=== PATIENT | female | born 1965 | race Caucasian/White ===

== ENCOUNTER → 2016-06-04 | Outpatient (CLI) | payer BC ==
[~2016-06-04] MED LIST: AMT24 PO; B-CO1CAP17 PO; B-COCAP2 PO; CALC600T14 PO; CALCTAB7 PO; CHOL100027 PO; ESTR0.0510 TD; FISHOIL PO; LEVO112T2 PO; LUBI8CAP4 PO; MAGN400T5 PO; MISCCAP80 PO; NRN600 PO; OMEGCAP2 PO; ONDA4TAB10 SL; ONDA4TAB46 PO; OXYC1TAB3 PO; POTA10CA28 PO; PRENTAB26 PO; PRLSR20 PO; PROC1TAB5 PO; TERI600S SQ; TRAM-10 PO; VENL150C56 PO; [UNRECOGNIZED DRUG - CODE] TD
[2016-06-04 09:41] LABS: BASO % 1.4 %; BASO ABS # 0.07 K/uL (0-0.2); COMPLETE YES; EOS % 1.8 %; HEMATOCRIT 38.7 % (37-47); IG% 0.2 %; LYMPH % 35.2 %; LYMPH ABS # 1.78 K/uL (1.2-3.4); MANUAL MICROSCOPIC REQUIRED? YES; MEAN CELL VOLUME 96.3 fL (80-100); MEAN CORPUSCULAR HEMOGLOBIN 33.6 pg (25-34); MEAN CORPUSCULAR HGB CONC 34.9 g/dl (32-36); MEAN PLATELET VOLUME 9.9 fL (7.4-10.4); MONO % 8.3 %; NEUT % 53.1 %; PLATELET COUNT 161 K/uL (130-400); RED BLOOD COUNT 4.02 M/uL (4.2-5.4); URINE APPEARANCE CLEAR (CLEAR); URINE BILIRUBIN NEG (NEG); URINE COLOR YELLOW; URINE NITRITE NEG (NEG); UROBILINOGEN NEG (NEG); WHITE BLOOD COUNT 5.05 K/uL (4.8-10.8)
[2016-06-04 09:52] LABS: REVIEW REQ? NO
[2016-06-04 10:00] LABS: ALT/SGPT 25 U/L (12-78); BLOOD UREA NITROGEN 19 mg/dl (7-18); BUN/CREATININE RATIO 10.3 (10-20); CALCIUM 10.1 mg/dl (8.5-10.1); CARBON DIOXIDE 23 mmol/L (21-32); CHLORIDE 97 mmol/L (98-107); GLUCOSE 136 mg/dl (70-99); MAGNESIUM 1.9 mg/dl (1.8-2.4); POTASSIUM 2.7 mmol/L (3.5-5.1); SODIUM 135 mmol/L (136-145)
[2016-06-04 10:10] LABS: ALB/GLOB RATIO 0.8 (0.9-2); ALKALINE PHOSPHATASE 117 U/L (45-117); AST/SGOT 33 U/L (15-37); PREALBUMIN 19.2 mg/dl (20-40)
[2016-06-04 10:16] LABS: URINE BACTERIA NEG (NEG)
== END | disposition home or self-care (01) ==
LOC: C.LAB1850 08:13
PROVIDERS: ATTEND Internal Medicine
DX: D64.9 Anemia, unspecified (principal); N18.3 Chronic kidney disease, stage 3 (moderate)

== ENCOUNTER 2016-06-14 07:49 | Emergency (ER) | payer BC ==
[~2016-06-14] VITALS: Ht 162.6 cm; Wt 39.0 kg
[~2016-06-14 07:49] MED LIST changes: -B-CO1CAP17 PO; -CALCTAB7 PO; -ESTR0.0510 TD; -OMEGCAP2 PO; -ONDA4TAB10 SL; -OXYC1TAB3 PO; -PROC1TAB5 PO; -TERI600S SQ
[2016-06-14 07:53] VITALS: TEMP 36.6; Ht 162.6 cm; Wt 39.0 kg
[2016-06-14] MEDS ORDERED: TRAMADOL HCL 50 MG TAB PO STA (08:07)
[2016-06-14] MEDS ORDERED: SODIUM CHLORIDE 0.9% 1000ML 1,000 ML IV STA (08:07)
[2016-06-14] MEDS ORDERED: ONDANSETRON INJ 2 MG/ML 2 ML VIAL IV STA ×2 (08:07→08:08)
--- NOTE | 2016-06-14 08:09 | EMERGENCY ROOM VISIT NOTE ---
History Report prepared by Olga: Samy Cherry Under the Supervision of: Dr. Garrison Oh M.D. First contact with patient: 07:57 Chief Complaint: ILLNESS Stated Complaint: SICK History of Present Illness The patient is a 50 year old female who presents to the Emergency Room with complaints of a persistent illness that started a week ago. She says she has not been able to eat or drink anything, and has been losing weight over the past week. The patient vomits if she tries to eat or drink anything. She also complains of lethargy, nausea, diarrhea, generalized pain, and chills. The patient notes that she has been getting migraines at night this past week. She has been trying to take Tramadol for the pain, but she cannot keep it down. She also fell a couple days ago, and has a bruise on her upper left arm. She says she just got her thyroid checked and it was fine. The patient denies any abdominal pain or fevers. Source of History: patient Onset: A week ago Position: other (global - illness) Timing: other (persistent) Associated Symptoms: + chills, + diarrhea, + fatigue, + headache, + nausea, + vomiting, No abdominal pain, No fevers Note: Associated symptoms: Generalized pain, cannot keep anything down. Losing weight. Review of Systems See HPI for pertinent positives & negatives. A total of 10 systems reviewed and were otherwise negative. Past Medical & Surgical Medical Problems: (1) Acute Renal Failure, Unspecified (2) Alcohol dependence (3) E Coli Septicemia (4) Esophageal Reflux (5) Fx Ankle Nos-Closed (6) Fx Distal Radius Nec-Cl (7) Liver Disorders Nec (8) Liver Failure (9) OTH SEVERE MALNUTRITION (10) Renal Failure Nos Family History Kidney disease Lung disease Social History Smoking Status: Never Smoker Alcohol Use: heavy Drug Use: none Marital Status: Housing Status: lives with family Occupation Status: other Current/Historical Medications Scheduled Calcium (Caltrate), 600 MG PO BID Cholecalciferol (Vitamin D 1000 Unit), 1,000 INTER.UNIT PO BID Estradiol (Estradiol Transdermal System), 1 PATCH TD 2XWK Fish Oil ([place]-3), 1 CAP PO QAM Gabapentin (Gabapentin), 600 MG PO TID Levothyroxine Sodium (Synthroid), 112 MCG PO QAM Lubiprostone (Amitiza), 24 MCG PO HS Lubiprostone (Amitiza), 8 MCG PO QAM Magnesium Oxide (Mag-Ox), 400 MG PO TID Multivit/Min/Iron/Fol Ac/Pren ( Vitamin), 1 TABLET PO DAILY Omeprazole (Prilosec), 20 MG PO QAM Ondasetron Odt (Zofran Odt), 4 MG SL Q6H Potassium Chloride (Micro-K Ext Rel), 8 TAB PO DAILY Probiotic Product (Probiotic), 1 CAP PO QAM Teriparatide (Recombinant) (Forteo), 20 MCG SQ DAILY Venlafaxine Hcl (Effexor Extended Rel), 150 MG PO QAM Vitamin B Cmplx/Vitc/Folic Ac (Nephrocaps), 1 CAP PO QAM Scheduled PRN Ondansetron Hcl (Zofran), 4 MG PO Q4 PRN for Nausea or Vomiting Tramadol (Ultram), 1 TAB PO TID PRN for Pain Allergies Coded Allergies: Penicillins (Verified Allergy, Mild, ITCHING, 09/21/15) Cephalexin (Verified Allergy, Unknown, unknown, 09/21/15) allscripts Cephalosporins (Verified Allergy, Unknown, unknown, 09/21/15) allscripts Physical Exam Vital Signs Date Time Temp Pulse Resp B/P Pulse Ox O2 Delivery O2 Flow Rate FiO2 06/14/16 10:32 113 06/14/16 10:15 116 18 117/75 96 Room Air 06/14/16 09:10 97 14 145/93 99 Room Air 06/14/16 07:53 36.6 94 20 122/85 99 Room Air Physical Exam CONSTITUTIONAL: Mild distress. HEENT: No icterus, moist mucous membranes NECK: No meningismus, trachea is midline. CARDIOVASCULAR: Regular rate, normal perfusion RESPIRATORY: Unlabored breathing. Clear to auscultation. GASTROINTESTINAL: Non-tender GENITOURINARY: No flank tenderness MUSCULOSKELETAL: Full range of motion NEUROLOGIC: No acute gross focal deficits. PSYCHIATRIC: Normal affect SKIN: Normal for ethnicity. Medical Decision & Procedures Laboratory Results 06/14/16 08:20 Red Blood Count 3.95, Mean Corpuscular Volume 98.5, Mean Corpuscular Hemoglobin 33.4, Mean Corpuscular Hemoglobin Concent 33.9, Mean Platelet Volume 9.6, Neutrophils (%) (Auto) 56.5, Lymphocytes (%) (Auto) 32.2, Monocytes (%) (Auto) 8.3, Eosinophils (%) (Auto) 1.5, Basophils (%) (Auto) 1.5, Neutrophils # (Auto) 2.24, Lymphocytes # (Auto) 1.28, Monocytes # (Auto) 0.33, Eosinophils # (Auto) 0.06, Basophils # (Auto) 0.06 06/14/16 08:20 Test 06/14/16 08:20 06/14/16 09:15 White Blood Count 3.97 K/uL (4.8-10.8) Red Blood Count 3.95 M/uL (4.2-5.4) Hemoglobin 13.2 g/dL (12.0-16.0) Hematocrit 38.9 % (37-47) Mean Corpuscular Volume 98.5 fL (80-100) Mean Corpuscular Hemoglobin 33.4 pg (25-34) Mean Corpuscular Hemoglobin Concent 33.9 g/dl (32-36) Platelet Count 134 K/uL (130-400) Mean Platelet Volume 9.6 fL (7.4-10.4) Neutrophils (%) (Auto) 56.5 % Lymphocytes (%) (Auto) 32.2 % Monocytes (%) (Auto) 8.3 % Eosinophils (%) (Auto) 1.5 % Basophils (%) (Auto) 1.5 % Neutrophils # (Auto) 2.24 K/uL (1.4-6.5) Lymphocytes # (Auto) 1.28 K/uL (1.2-3.4) Monocytes # (Auto) 0.33 K/uL (0.11-0.59) Eosinophils # (Auto) 0.06 K/uL (0-0.5) Basophils # (Auto) 0.06 K/uL (0-0.2) RDW Standard Deviation 47.3 fL (36.4-46.3) RDW Coefficient of Variation 13.0 % (11.5-14.5) Immature Granulocyte % (Auto) 0.0 % Immature Granulocyte # (Auto) 0.00 K/uL (0.00-0.02) Anion Gap 20.0 mmol/L (3-11) Est Creatinine Clear Calc Drug Dose 24.4 ml/min Estimated GFR () 40.1 Estimated GFR (Non- 34.6 BUN/Creatinine Ratio 7.5 (10-20) Calcium Level 9.9 mg/dl (8.5-10.1) Total Bilirubin 0.6 mg/dl (0.2-1) Direct Bilirubin 0.2 mg/dl (0-0.2) Aspartate Amino Transf (AST/SGOT) 46 U/L (15-37) Alanine Aminotransferase (ALT/SGPT) 26 U/L (12-78) Alkaline Phosphatase 112 U/L (45-117) Total Protein 8.0 gm/dl (6.4-8.2) Albumin 3.3 gm/dl (3.4-5.0) Thyroid Stimulating Hormone (TSH) 0.009 uIu/ml (0.300-4.500) Urine Color YELLOW Urine Appearance CLEAR (CLEAR) Urine pH 6.0 (4.5-7.5) Urine Specific [place] 1.007 (1.000-1.030) Urine Protein 2+ (NEG) Urine Glucose (UA) NEG (NEG) Urine Ketones 1+ (NEG) Urine Occult Blood 2+ (NEG) Urine Nitrite NEG (NEG) Urine Bilirubin NEG (NEG) Urine Urobilinogen NEG (NEG) Urine Leukocyte Esterase NEG (NEG) Urine WBC (Auto) 1-5 /hpf (0-5) Urine RBC (Auto) 10-30 /hpf (0-4) Urine Hyaline Casts (Auto) 1-5 /lpf (0-5) Urine Epithelial Cells (Auto) 10-20 /lpf (0-5) Urine Bacteria (Auto) NEG (NEG) Labs reviewed by ED physician. Medications Administered Medications (Trade) Dose Ordered Sig/Mili Route Start Time Stop Time Status Last Admin Dose Admin Tramadol HCl 50 mg 50 mg NOW STAT PO 06/14/16 08:07 06/14/16 08:09 DC 06/14/16 08:33 50 MG Sodium Chloride (Nss 1000ml) 1,000 ml @ 0 mls/hr Q0M STAT IV 06/14/16 08:07 06/14/16 08:09 DC 06/14/16 08:32 999 MLS/HR Ondansetron HCl (Zofran Inj) 4 mg NOW STAT IV 06/14/16 08:07 06/14/16 08:09 DC 06/14/16 08:34 4 MG Ondansetron HCl (Zofran Inj) 4 mg NOW STAT IV 06/14/16 08:08 06/14/16 08:09 DC 06/14/16 09:17 4 MG ED Course 0758: Past medical records reviewed. The patient was evaluated in room A3. A complete history and physical examination was performed. 0807: Ordered Zofran Inj 4 mg IV, NSS 1000 ml @ 0 mls/hr Wide Open IV, Ultram Tab 50 mg PO 1143: I reevaluated the patient and she is resting comfortably. The patient verbally expressed understanding and agreement of the treatment plan. The patient will be discharged. Medical Decision Differential diagnoses include: gastroenteritis. 50-year-old presents to emergency room for vomiting and diarrhea with a history of dehydration as well as Escherichia coli sepsis the distant past. Abdomen benign. She was hydrated with normal saline solution given Zofran and tolerated by mouth without difficulty. Creatinine noted to be 1.7. Patient states she has a history of renal insufficiency and understands to have his follow-up with her doctor. He is comfortable with plan for discharge on reexamination 11:30am. Impression Primary Impression: Vomiting Additional Impression: Dehydration Scribe Attestation The scribe's documentation has been prepared under my direction and personally reviewed by me in its entirety. I confirm that the note above accurately reflects all work, treatment, procedures, and medical decision making performed by me. Departure Information Dispostion Home / Self-Care Prescriptions Ondasetron Odt (ZOFRAN ODT) 4 Mg Tab 4 MG SL Q6H for Nausea, #20 TAB Prov: Garrison Oh MD 06/14/16 Referrals Anson Lucio M.D. (PCP) Forms HOME CARE DOCUMENTATION FORM, IMPORTANT VISIT INFORMATION, WORK / SCHOOL INSTRUCTIONS Patient Instructions My [facility], Vomiting - [facility] Problem Qualifiers
[2016-06-14] MEDS ORDERED: TERI600S SQ (08:26)
[2016-06-14 08:38] LABS: BASO % 1.5 %; BASO ABS # 0.06 K/uL (0-0.2); COMPLETE YES; EOS % 1.5 %; HEMATOCRIT 38.9 % (37-47); LYMPH % 32.2 %; LYMPH ABS # 1.28 K/uL (1.2-3.4); MEAN CELL VOLUME 98.5 fL (80-100); MEAN CORPUSCULAR HEMOGLOBIN 33.4 pg (25-34); MEAN CORPUSCULAR HGB CONC 33.9 g/dl (32-36); MEAN PLATELET VOLUME 9.6 fL (7.4-10.4); MONO % 8.3 %; NEUT % 56.5 %; PLATELET COUNT 134 K/uL (130-400); RED BLOOD COUNT 3.95 M/uL (4.2-5.4); WHITE BLOOD COUNT 3.97 K/uL (4.8-10.8)
[2016-06-14 09:07] LABS: BUN/CREATININE RATIO 7.5 (10-20); CALCIUM 9.9 mg/dl (8.5-10.1); CREATININE 1.7 mg/dl (0.60-1.20); THYROID STIMULATING HORMONE 0.009 uIu/ml (0.300-4.500)
[2016-06-14 09:37] LABS: URINE APPEARANCE CLEAR (CLEAR); URINE BILIRUBIN NEG (NEG); URINE COLOR YELLOW; URINE NITRITE NEG (NEG); URINE SPECIFIC GRAVITY 1.007 (1.000-1.030); UROBILINOGEN NEG (NEG)
[2016-06-14 09:39] LABS: MANUAL MICROSCOPIC REQUIRED? NO; REVIEW REQ? NO
[2016-06-14] MEDS ORDERED: ONDA4TAB10 SL (11:44)
[2016-06-14 12:15] VITALS: BP 127/85; PULSE 100; O2SAT 97
== END 2016-06-14 12:15 | disposition home or self-care (01) ==
LOC: C.EDB 07:51 → C.EDA 12:15
DX: R11.2 Nausea with vomiting, unspecified (principal); E86.0 Dehydration; R19.7 Diarrhea, unspecified; R52 Pain, unspecified; G43.909 Migraine, unspecified, not intractable, without status migrainosus; F10.20 Alcohol dependence, uncomplicated; K21.9 Gastro-esophageal reflux disease without esophagitis; K72.90 Hepatic failure, unspecified without coma; N18.9 Chronic kidney disease, unspecified

== ENCOUNTER 2016-06-19 08:04 | Emergency (ER) | payer BC ==
[~2016-06-19] VITALS: Ht 162.6 cm; Wt 37.0 kg
[~2016-06-19 08:04] MED LIST changes: +ONDA4TAB10 SL; +TERI600S SQ
[2016-06-19 08:07] VITALS: TEMP 36.5; Ht 162.6 cm; Wt 37.0 kg
[2016-06-19] MEDS ORDERED: SODIUM CHLORIDE 0.9% 500ML 500 ML IV STA (08:31)
[2016-06-19] MEDS ORDERED: ONDANSETRON INJ 2 MG/ML 2 ML VIAL IV STA (08:31)
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
[2016-06-19 08:48] LABS: BASO % 0.3 %; BASO ABS # 0.01 K/uL (0-0.2); COMPLETE YES; EOS % 1.4 %; HEMATOCRIT 40.3 % (37-47); LYMPH % 27.3 %; LYMPH ABS # 0.99 K/uL (1.2-3.4); MEAN CELL VOLUME 96.2 fL (80-100); MEAN CORPUSCULAR HEMOGLOBIN 33.4 pg (25-34); MEAN CORPUSCULAR HGB CONC 34.7 g/dl (32-36); MEAN PLATELET VOLUME 10.3 fL (7.4-10.4); MONO % 8.8 %; NEUT % 62.2 %; PLATELET COUNT 115 K/uL (130-400); RED BLOOD COUNT 4.19 M/uL (4.2-5.4); WHITE BLOOD COUNT 3.63 K/uL (4.8-10.8)
[2016-06-19 09:07] LABS: BUN/CREATININE RATIO 11.9 (10-20); CALCIUM 9.5 mg/dl (8.5-10.1); CREATININE 1.6 mg/dl (0.60-1.20); MAGNESIUM 1.6 mg/dl (1.8-2.4); POTASSIUM 3.8 mmol/L (3.5-5.1)
--- NOTE | 2016-06-19 09:08 | DIAGNOSTIC IMAGING REPORT ---
ABDOMEN 2VIEW W/PA CHEST RTN CLINICAL HISTORY: Vomiting COMPARISON STUDY: 08/14/2012 FINDINGS: The erect chest reveals no free air. There is no focal pulmonary consolidation. Erect and supine views the abdomen surgical clips within the right upper quadrant. There are no abnormally dilated loops of large or small bowel. There are no transition zones indicate bowel obstruction. There is a right lower quadrant air-fluid level, likely colonic. Multiple thoracic and lumbar vertebral body compression deformities are evident. IMPRESSION: No evidence of bowel obstruction. No evidence of free air. Electronically signed by: Marshall Carver M.D. 06/19/2016 9:07 AM Dictated Date/Time: 06/19/2016 8:59 AM
[2016-06-19 09:10] LABS: ALB/GLOB RATIO 0.7 (0.9-2)
[2016-06-19] MEDS ORDERED: CALCTAB7 PO (09:10)
[2016-06-19] MEDS ORDERED: ESTR0.0510 TD (09:10)
[2016-06-19] MEDS ORDERED: B-CO1CAP17 PO (09:10)
[2016-06-19] MEDS ORDERED: OMEGCAP2 PO (09:10)
[2016-06-19] MEDS ORDERED: MoRPHine SULFATE 2 MG/ML CARP IV STA (09:48)
[2016-06-19] MEDS ORDERED: OXYC1TAB3 PO (12:11)
[2016-06-19 12:27] VITALS: BP 114/66; PULSE 88; O2SAT 100
== END 2016-06-19 12:30 | disposition home or self-care (01) ==
LOC: C.EDB 08:06
DX: R11.10 Vomiting, unspecified (principal); D64.9 Anemia, unspecified; N19 Unspecified kidney failure; G89.29 Other chronic pain; E03.9 Hypothyroidism, unspecified; K21.9 Gastro-esophageal reflux disease without esophagitis; K72.90 Hepatic failure, unspecified without coma; Z86.19 Personal history of other infectious and parasitic diseases; Z87.81 Personal history of (healed) traumatic fracture; Z79.899 Other long term (current) drug therapy; Z88.0 Allergy status to penicillin; Z88.8 Allergy status to other drugs, medicaments and biological substances; Z84.1 Family history of disorders of kidney and ureter

== ENCOUNTER → 2016-07-13 | Outpatient (CLI) | payer BC ==
[~2016-07-13] MED LIST changes: +B-CO1CAP17 PO; -B-COCAP2 PO; -CALC600T14 PO; +CALCTAB7 PO; +ESTR0.0510 TD; -FISHOIL PO; +OMEGCAP2 PO; -ONDA4TAB10 SL; +OXYC1TAB3 PO; +PROC1TAB5 PO; -[UNRECOGNIZED DRUG - CODE] TD
[2016-07-13 09:55] LABS: ALT/SGPT 25 U/L (12-78); BLOOD UREA NITROGEN 7 mg/dl (7-18); BUN/CREATININE RATIO 4.3 (10-20); CALCIUM 8.8 mg/dl (8.5-10.1); CARBON DIOXIDE 24 mmol/L (21-32); CHLORIDE 98 mmol/L (98-107); GLUCOSE 102 mg/dl (70-99); POTASSIUM 3.4 mmol/L (3.5-5.1); SODIUM 133 mmol/L (136-145)
[2016-07-13 10:04] LABS: ALB/GLOB RATIO 0.6 (0.9-2); ALKALINE PHOSPHATASE 116 U/L (45-117); AST/SGOT 52 U/L (15-37); PREALBUMIN 22.2 mg/dl (20-40)
== END | disposition home or self-care (01) ==
LOC: C.LAB1850 08:24
PROVIDERS: ATTEND Internal Medicine
DX: N18.3 Chronic kidney disease, stage 3 (moderate) (principal); E03.9 Hypothyroidism, unspecified

== ENCOUNTER → 2016-07-16 | Outpatient (CLI) | payer BC ==
[2016-07-16 13:36] LABS: CALCIUM URINE 14.8 mg/dl
== END | disposition home or self-care (01) ==
LOC: C.LABBC 10:48
PROVIDERS: ATTEND Internal Medicine Rheumatology
DX: M81.0 Age-related osteoporosis without current pathological fracture (principal); E43 Unspecified severe protein-calorie malnutrition; S22.059A Unspecified fracture of T5-T6 vertebra, initial encounter for closed fracture; S22.069A Unspecified fracture of T7-T8 vertebra, initial encounter for closed fracture; S22.089A Unspecified fracture of T11-T12 vertebra, initial encounter for closed fracture; X58.XXXA Exposure to other specified factors, initial encounter; E61.8 Deficiency of other specified nutrient elements

== ENCOUNTER → 2016-07-18 | Outpatient (CLI) | payer BC | END | disposition home or self-care (01) | LOC: C.LAB1850 12:15 | PROVIDERS: ATTEND Internal Medicine Rheumatology | DX: M81.0 Age-related osteoporosis without current pathological fracture (principal); S22.059A Unspecified fracture of T5-T6 vertebra, initial encounter for closed fracture; S22.069A Unspecified fracture of T7-T8 vertebra, initial encounter for closed fracture; S22.089A Unspecified fracture of T11-T12 vertebra, initial encounter for closed fracture; X58.XXXA Exposure to other specified factors, initial encounter; E61.8 Deficiency of other specified nutrient elements ==

== ENCOUNTER → 2016-08-07 | Outpatient (CLI) | payer BC | END | disposition home or self-care (01) | LOC: C.PAPS 14:36 | PROVIDERS: ATTEND Obstetrics & Gynecology | DX: Z01.411 Encounter for gynecological examination (general) (routine) with abnormal findings (principal); R87.616 Satisfactory cervical smear but lacking transformation zone; Z87.42 Personal history of other diseases of the female genital tract ==

== ENCOUNTER → 2016-09-11 | Outpatient (CLI) | payer BC ==
--- NOTE | 2016-09-11 14:23 | DIAGNOSTIC IMAGING REPORT ---
RIGHT SHOULDER 4 VIEWS CLINICAL HISTORY: Chronic right shoulder pain. FINDINGS: 4 views of the right shoulder are obtained. No prior studies are available for comparison at the time of dictation. The skeletal structures are osteopenic. There is chronic posttraumatic deformity of the right proximal humerus with an intramedullary nail in place. The orthopedic hardware appears intact. No acute fracture or dislocation is seen. Arthritic change and sclerosis is present in the great tuberosity of the humeral head. The acromioclavicular joint appears preserved. The overlying soft tissues are within normal limits. Imaged right lung parenchyma appears clear. There are healed right-sided rib fractures. IMPRESSION: 1. No acute bony abnormality is seen in the right shoulder. 2. Osteopenia with mild degenerative as well as chronic posttraumatic/postoperative change as above. Electronically signed by: James Mandujano M.D. 09/11/2016 2:22 PM Dictated Date/Time: 09/11/2016 2:20 PM
== END | disposition home or self-care (01) ==
LOC: C.RDSM 10:00
PROVIDERS: ATTEND Physician Assistant
DX: M25.511 Pain in right shoulder (principal); M85.811 Other specified disorders of bone density and structure, right shoulder

== ENCOUNTER → 2016-10-23 | Outpatient (CLI) | payer BC ==
[2016-10-23 10:24] LABS: HEMATOCRIT 39.4 % (37-47); MEAN CELL VOLUME 106.5 fL (80-100); MEAN CORPUSCULAR HEMOGLOBIN 37.3 pg (25-34); MEAN PLATELET VOLUME 9.4 fL (7.4-10.4); PLATELET COUNT 154 K/uL (130-400); WHITE BLOOD COUNT 4.27 K/uL (4.8-10.8)
[2016-10-23 11:04] LABS: ALB/GLOB RATIO 0.7 (0.9-2); ALKALINE PHOSPHATASE 97 U/L (45-117); ALT/SGPT 29 U/L (12-78); AST/SGOT 66 U/L (15-37); BLOOD UREA NITROGEN 14 mg/dl (7-18); CALCIUM 8.8 mg/dl (8.5-10.1); CARBON DIOXIDE 25 mmol/L (21-32); CHLORIDE 101 mmol/L (98-107); GLUCOSE 59 mg/dl (70-99); MAGNESIUM 1.6 mg/dl (1.8-2.4); POTASSIUM 3.3 mmol/L (3.5-5.1); SODIUM 138 mmol/L (136-145)
[2016-10-23 11:11] LABS: BASO % 0.9 %; BASO ABS # 0.04 K/uL (0-0.2); COMPLETE YES; EOS % 0.9 %; LYMPH % 58.1 %; LYMPH ABS # 2.48 K/uL (1.2-3.4); NEUT % 32.1 %
[2016-10-23 11:12] LABS: PREALBUMIN 19.6 mg/dl (20-40); THYROID STIMULATING HORMONE 0.271 uIu/ml (0.300-4.500)
== END | disposition home or self-care (01) ==
LOC: C.LAB1850 09:04
PROVIDERS: ATTEND Internal Medicine
DX: E43 Unspecified severe protein-calorie malnutrition (principal); N18.3 Chronic kidney disease, stage 3 (moderate)

== ENCOUNTER 2016-12-28 08:12 | Emergency (ER) | payer BC ==
[~2016-12-28] VITALS: Ht 162.6 cm; Wt 36.9 kg
[~2016-12-28 08:12] MED LIST changes: -OXYC1TAB3 PO; -PROC1TAB5 PO
[2016-12-28 08:19] VITALS: TEMP 36.5
[2016-12-28] MEDS ORDERED: HYDROmorphone INJ 1 MG/ML SYR IV STA (08:46)
[2016-12-28] MEDS ORDERED: PROCHLORPERAZINE 5 MG/ML 2 ML VIAL IV STA (08:46)
[2016-12-28] MEDS ORDERED: DiphenhydrAMINE HCL 50 MG/ML VIAL IV STA (08:46)
[2016-12-28] MEDS ORDERED: SODIUM CHLORIDE 0.9% 1000ML 1,000 ML IV STA (08:46)
[2016-12-28 09:05] LABS: BASO % 1.6 %; BASO ABS # 0.06 K/uL (0-0.2); COMPLETE YES; EOS % 0.3 %; HEMATOCRIT 38.6 % (37-47); LYMPH % 45.1 %; LYMPH ABS # 1.72 K/uL (1.2-3.4); MEAN CELL VOLUME 101.8 fL (80-100); MEAN CORPUSCULAR HGB CONC 33.4 g/dl (32-36); MEAN PLATELET VOLUME 8.9 fL (7.4-10.4); MONO % 5.8 %; NEUT % 47.2 %; PLATELET COUNT 176 K/uL (130-400); RED BLOOD COUNT 3.79 M/uL (4.2-5.4); WHITE BLOOD COUNT 3.81 K/uL (4.8-10.8)
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
[2016-12-28 09:40] LABS: BUN/CREATININE RATIO 10.2 (10-20); CALCIUM 9.2 mg/dl (8.5-10.1); CREATININE 1.3 mg/dl (0.60-1.20); POTASSIUM 3.9 mmol/L (3.5-5.1)
[2016-12-28] MEDS ORDERED: SODI CHLOR 2.5MEQ/ML 14.6% INJ 155 MEQ in DEXTROSE 10% 1,000 ML IV SCH (09:45)
--- NOTE | 2016-12-28 09:52 | DIAGNOSTIC IMAGING REPORT ---
CHEST AND ABDOMEN 2 VIEWS HISTORY: Vomiting. Generalized abdominal pain. COMPARISON: Chest and abdominal series 06/19/2016. FINDINGS: The lungs are clear. The cardiomediastinal silhouette is within normal limits. There is no pneumoperitoneum or pneumatosis. Gas and stool within the normal caliber colon. There are few mildly dilated gas-filled loops of small bowel within the midabdomen. These measure up to 3.4 cm in diameter. These demonstrate small fluid levels. Old, healed right-sided rib fractures. Postoperative changes within the proximal right humerus. Cholecystectomy. IMPRESSION: A few mildly dilated gas and fluid-filled loops of small bowel within the midabdomen. There remains gas and stool within the colon. Therefore, this favors a partial small bowel obstruction. An ileus or gastroenteritis could also have a similar appearance. Electronically signed by: Theron Alegria M.D. 12/28/2016 9:50 AM Dictated Date/Time: 12/28/2016 9:46 AM
[2016-12-28] MEDS ORDERED: DEXTROSE 50% 50 ML SYR IV STA (09:57)
[2016-12-28] MEDS ORDERED: DEXTROSE 50% 50 ML SYR ONE (09:59)
--- NOTE | 2016-12-28 10:19 | EMERGENCY ROOM VISIT NOTE ---
History Report prepared by Olga: Ofe Warner Under the Supervision of: Dr. Maicol Willett M.D. First contact with patient: 08:21 Chief Complaint: VOMITING Stated Complaint: VOMITING, NOT EATING-OVER 1 WEEK Nursing Triage Summary: PT states that over the last week she has been unable to eat due to nause. Pt states that when she tries to eat she vomits. Pt denies any abdominal pain, diarrhea or urinary issues. History of Present Illness The patient is a 51 year old female who presents to the Emergency Room with complaints of persistent vomiting starting 1 week ago. She is nauseous and vomits every time she eats or drinks. She has experienced this before. She also reports headaches. She denies any abdominal pain. She denies trying any new foods or travel. She has no known sick contacts. She has a history of gastroparesis and GERD. She has been scoped before. She has not yet contacted GI about her symptoms. 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 Source of History: patient Onset: 1 week ago Position: other (global) Quality: other (vomiting) Timing: other (persistent) Modifying Factors (Worsening): eating Associated Symptoms: + headache, + nausea, No abdominal pain Review of Systems See HPI for pertinent positives & negatives. A total of 10 systems reviewed and were otherwise negative. Past Medical & Surgical Medical Problems: (1) Acute Renal Failure, Unspecified (2) Alcohol dependence (3) E Coli Septicemia (4) Esophageal Reflux (5) Fx Ankle Nos-Closed (6) Fx Distal Radius Nec-Cl (7) Liver Disorders Nec (8) Liver Failure (9) OTH SEVERE MALNUTRITION (10) Renal Failure Nos Family History Kidney disease Lung disease Social History Smoking Status: Never Smoker Drug Use: none Marital Status: Housing Status: lives with family Current/Historical Medications Scheduled Calcium Carbonate-Vitamin D W/ (Caltrate 600 Plus), 1 TAB PO BID Cholecalciferol (Vitamin D 1000 Unit), 1,000 INTER.UNIT PO BID Estradiol (Estradiol Transdermal System), 1 PATCH TD 2XWK Gabapentin (Gabapentin), 600 MG PO TID Levothyroxine Sodium (Synthroid), 112 MCG PO QAM Lubiprostone (Amitiza), 24 MCG PO BID Magnesium Oxide (Mag-Ox), 400 MG PO TID Multivit/Min/Iron/Fol Ac/Pren ( Vitamin), 1 TABLET PO DAILY [place]-3 Fatty Acids (Fish Oil), 1 CAP PO DAILY Omeprazole (Prilosec), 20 MG PO BID Potassium Chloride (Micro-K Ext Rel), 20 TAB PO QID Probiotic Product (Probiotic), 1 CAP PO QAM Prochlorperazine Maleate (Compazine), 1 TAB PO Q6 Teriparatide (Recombinant) (Forteo), 20 MCG SQ DAILY Venlafaxine Hcl (Effexor Extended Rel), 150 MG PO QAM Vitamin B Cmplx/Vitc/Folic Ac (Nephrocaps), 1 CAP PO DAILY Scheduled PRN Ondansetron Hcl (Zofran), 4 MG PO Q4 PRN for Nausea or Vomiting Tramadol (Ultram), 50 MG PO TID PRN for Pain Allergies Coded Allergies: Penicillins (Verified Allergy, Mild, ITCHING, 12/28/16) Cephalexin (Verified Allergy, Unknown, unknown, 12/28/16) [employer] Cephalosporins (Verified Allergy, Unknown, unknown, 12/28/16) [employer] Physical Exam Vital Signs Date Time Temp Pulse Resp B/P (MAP) Pulse Ox O2 Delivery O2 Flow Rate FiO2 12/28/16 13:08 98 18 97/63 99 12/28/16 12:20 99 12/28/16 11:32 Room Air 12/28/16 11:21 100 18 110/74 100 Room Air 12/28/16 10:06 119 18 119/85 95 Room Air 12/28/16 08:40 112 12/28/16 08:19 36.5 110 20 125/88 99 Room Air Physical Exam GENERAL: Patient is cachectic in appearance. HEAD: Normocephalic atraumatic EYES: Ocular movements intact pupils equal and react to light OROPHARYNX mucous membranes are moist no exudates present no erythema or edema present NECK: Supple no nuchal rigidity CHEST: Good equal expansion LUNGS: Clear and equal to auscultation CARDIAC: Normal S1 and S2 ABDOMEN: Soft nontender no guarding BACK: No CVA tenderness EXTREMITIES: No pain upon palpation normal muscle strength in all groups no clubbing cyanosis or edema NEURO: Patient is following commands and answering questions appropriately. Alert and oriented x3 Cranial Nerves 2-12 grossly intact Medical Decision & Procedures ER Provider Diagnostic Interpretation: X-ray results as stated below per interpretation by mo and the radiologist. Radiology results as stated below per my review and radiologist interpretation: CHEST AND ABDOMEN 2 VIEWS HISTORY: Vomiting. Generalized abdominal pain. COMPARISON: Chest and abdominal series 06/19/2016. FINDINGS: The lungs are clear. The cardiomediastinal silhouette is within normal limits. There is no pneumoperitoneum or pneumatosis. Gas and stool within the normal caliber colon. There are few mildly dilated gas-filled loops of small bowel within the midabdomen. These measure up to 3.4 cm in diameter. These demonstrate small fluid levels. Old, healed right-sided rib fractures. Postoperative changes within the proximal right humerus. Cholecystectomy. IMPRESSION: A few mildly dilated gas and fluid-filled loops of small bowel within the midabdomen. There remains gas and stool within the colon. Therefore, this favors a partial small bowel obstruction. An ileus or gastroenteritis could also have a similar appearance. Electronically signed by: Theron Alegria M.D. 12/28/2016 9:50 AM Dictated Date/Time: 12/28/2016 9:46 AM SINUSES-MAXILLOFACIAL W/O CT DOSE: 221.03 mGycm HISTORY: Headache. Trauma. Pt c/o headache, broken nose, sinus pressure TECHNIQUE: Multiaxial CT images of the paranasal sinuses were performed and reformatted in the coronal plane without the use of contrast. A dose lowering technique was utilized adhering to the principles of ALARA. COMPARISON: None. FINDINGS: The frontal sinuses, ethmoid air cells, sphenoid sinuses, and bilateral maxillary antra are clear. The mastoid air cells are clear. The bilateral ostiomeatal units are patent. Slight nasal septal displacement to the right. Mild hypertrophic change of the nasal turbinates. The orbits are unremarkable. IMPRESSION: The paranasal sinuses and mastoid air cells are clear. Mild hypertrophic change of the nasal turbinates. The above report was generated using voice recognition software. It may contain grammatical, syntax or spelling errors. Electronically signed by: Tomas Ureña M.D. 12/28/2016 9:35 AM Dictated Date/Time: 12/28/2016 9:[address] ABD/PELVIS IV AND ORAL CONT CLINICAL HISTORY: Nausea and vomiting COMPARISON STUDY: Conventional radiographic study dated 12/28/2016, CT scan of the abdomen pelvis dated 08/04/2015 TECHNIQUE: Following the IV administration of 92 mL of Optiray-320, CT scan of the abdomen and pelvis was performed from the lung bases to the proximal femurs. Images are reviewed in the axial, sagittal, and coronal planes. IV contrast was administered without complication. A dose lowering technique was utilized adhering to the principles of ALARA. CT DOSE: 216.61 mGycm FINDINGS: Lower chest: The heart is normal in size and configuration, without pericardial effusion. The lung bases and pleural spaces are clear. Liver: The contrast-enhanced liver is normal in size, contour, and attenuation. There is no intrahepatic biliary ductal dilatation. The hepatic veins and portal veins are patent. Gallbladder: Surgically absent Spleen: Normal in size and attenuation. Pancreas: Unremarkable. Adrenal glands: Unremarkable. Kidneys: There is lobular left renal cortical scarring. There is a 2.5 mm left renal calcification. There are several left renal hypodensities largest of which measures 5 mm. These likely represent cysts. Bowel: There is mild colonic wall thickening, most pronounced at the level of the cecum. There is fluid within the colon. There are borderline dilated left mid abdominal small bowel loops measuring up to 29 mm. The distal small bowel is decompressed. Nevertheless an ileus is favored over a small bowel obstruction. Peritoneum: There is no intraperitoneal free air or abdominal ascites. Vasculature: The abdominal aorta is normal in course and caliber. Adenopathy: None. Pelvic viscera: The bladder, and pelvic viscera are unremarkable. Skeletal structures: There are multiple vertebral body compression deformities most pronounced at the L3 level. IMPRESSION: 1. Mild pancolonic wall thickening with excessive colonic fluid. The findings are consistent with a nonspecific enteritis 2. Mildly dilated left mid abdominal small bowel loops. Given the presumed enteritis, ileus is favored over a low-grade obstruction 3. No evidence of free air 4. Multiple vertebral body compression deformities 5. Lobular left renal cortical scarring Electronically signed by: Marshall Carver M.D. 12/28/2016 12:31 PM Dictated Date/Time: 12/28/2016 12:20 PM Laboratory Results 12/28/16 08:35 Red Blood Count 3.79, Mean Corpuscular Volume 101.8, Mean Corpuscular Hemoglobin 34.0, Mean Corpuscular Hemoglobin Concent 33.4, Mean Platelet Volume 8.9, Neutrophils (%) (Auto) 47.2, Lymphocytes (%) (Auto) 45.1, Monocytes (%) ( Auto) 5.8, Eosinophils (%) (Auto) 0.3, Basophils (%) (Auto) 1.6, Neutrophils # ( Auto) 1.80, Lymphocytes # (Auto) 1.72, Monocytes # (Auto) 0.22, Eosinophils # ( Auto) 0.01, Basophils # (Auto) 0.06 12/28/16 08:35 Test 12/28/16 08:35 12/28/16 10:43 White Blood Count 3.81 K/uL (4.8-10.8) Red Blood Count 3.79 M/uL (4.2-5.4) Hemoglobin 12.9 g/dL (12.0-16.0) Hematocrit 38.6 % (37-47) Mean Corpuscular Volume 101.8 fL (80-100) Mean Corpuscular Hemoglobin 34.0 pg (25-34) Mean Corpuscular Hemoglobin Concent 33.4 g/dl (32-36) Platelet Count 176 K/uL (130-400) Mean Platelet Volume 8.9 fL (7.4-10.4) Neutrophils (%) (Auto) 47.2 % Lymphocytes (%) (Auto) 45.1 % Monocytes (%) (Auto) 5.8 % Eosinophils (%) (Auto) 0.3 % Basophils (%) (Auto) 1.6 % Neutrophils # (Auto) 1.80 K/uL (1.4-6.5) Lymphocytes # (Auto) 1.72 K/uL (1.2-3.4) Monocytes # (Auto) 0.22 K/uL (0.11-0.59) Eosinophils # (Auto) 0.01 K/uL (0-0.5) Basophils # (Auto) 0.06 K/uL (0-0.2) RDW Standard Deviation 48.7 fL (36.4-46.3) RDW Coefficient of Variation 13.0 % (11.5-14.5) Immature Granulocyte % (Auto) 0.0 % Immature Granulocyte # (Auto) 0.00 K/uL (0.00-0.02) Nucleated RBC Absolute Count (auto) 0.02 K/uL (0-0) Nucleated Red Blood Cells % 0.5 % Anion Gap 12.0 mmol/L (3-11) Est Creatinine Clear Calc Drug Dose 29.8 ml/min Estimated GFR () 55.0 Estimated GFR (Non- 47.5 BUN/Creatinine Ratio 10.2 (10-20) Calcium Level 9.2 mg/dl (8.5-10.1) Total Bilirubin 0.4 mg/dl (0.2-1) Direct Bilirubin 0.2 mg/dl (0-0.2) Aspartate Amino Transf (AST/SGOT) 42 U/L (15-37) Alanine Aminotransferase (ALT/SGPT) 26 U/L (12-78) Alkaline Phosphatase 90 U/L (45-117) Total Protein 7.7 gm/dl (6.4-8.2) Albumin 3.0 gm/dl (3.4-5.0) Lipase 103 U/L (73-393) Bedside Glucose 258 mg/dl (70-90) Labs reviewed by ED physician. Medications Administered Medications (Trade) Dose Ordered Sig/Mili Route Start Time Stop Time Status Last Admin Dose Admin Sodium Chloride 1,000 ml @ 999 mls/hr Q1H1M STAT IV 12/28/16 08:46 12/28/16 09:46 DC 12/28/16 09:09 999 MLS/HR Hydromorphone HCl (Dilaudid Inj) 0.5 mg NOW STAT IV 12/28/16 08:46 12/28/16 08:48 DC 12/28/16 09:10 0.5 MG Diphenhydramine HCl (Benadryl Inj) 50 mg NOW STAT IV 12/28/16 08:46 12/28/16 08:48 DC 12/28/16 09:09 50 MG Prochlorperazine Edisylate (Compazine Inj) 10 mg NOW STAT IV 12/28/16 08:46 12/28/16 08:48 DC 12/28/16 09:09 10 MG Dextrose (Dextrose 50% 50ML Syringe) 50 ml NOW STAT IV 12/28/16 09:57 12/28/16 09:59 DC 12/28/16 10:03 50 ML ED Course 0821: At this time, the patient was evaluated by the medical student. The students findings were discussed with me. We discussed a possible treatment plan and differential diagnoses for the patient. 0841: Past medical records reviewed. The patient was evaluated in room A2. A complete history and physical examination was performed. 0846: Compazine Inj 10 mg IV, Benadryl Inj 50 mg IV, Dilaudid Inj 0.5 mg IV, NSS 1000 ml @ 999 mls/hr IV. 0951: I discussed the patient's case with CURRY Ureñaology. She recommends a CT with IV and PO contrast and admission to the hospital. 0957: Dextrose 50 ml IV. 1009: I discussed the patient's case with MARY Cruz hospitalist, he has agreed to evaluate the patient for further management and care. 1030: The patient is refusing admission. She will get a CT of her abdomen/ pelvis. 1255: Upon reexamination the patient is resting comfortably. I discussed results and treatment plan with the patient. She verbalizes agreement and understanding. The patient is ready for discharge. Medical Decision Differential diagnosis: Etiologies such as appendicitis, diverticulitis, PUD, biliary pathology, UTI, pancreatitis, obstruction, mesenteric ischemia, aortic pathology, infections, inflammatory bowel disease, renal colic, as well as others were entertained. This is a 51-year-old female who presents emergency department complaining of nausea vomiting and been unable to keep anything down for week. The patient has seen [facility] in the past therefore there were consulted on this patient. In addition the patient also has a blood sugar reading of 50. For this reason the patient was given D50 in the emergency department. Gastroenterology felt that the patient should be admitted and I did discuss case with the hospitalist service however the patient is refusing admission at this point. She was sent for CAT scan of the abdomen and pelvis. This was read by normal by radiology. I did refer the case to the hospitalist however the patient again refused admission Medication Reconcilliation Current Medication List: was personally reviewed by me Blood Pressure Screening Patient's blood pressure: Normal blood pressure Blood pressure disposition: Did not require urgent referral Consults Time Called: [phone] Consulting Physician: CURRY Ureña gastroenterology Returned Call: [phone] I discussed the patient's case with her. She recommends a CT with IV and PO contrast and admission to the hospital. Additional Consults: Time Called: 09 Consulted Physician: HUNTER Cruz hospitalist Returned Call: [phone] Additional Comments: I discussed the patient's case with him, he has agreed to evaluate the patient for further management and care. Impression Primary Impression: Intractable vomiting Additional Impression: Hypoglycemia Scribe Attestation The scribe's documentation has been prepared under my direction and personally reviewed by me in its entirety. I confirm that the note above accurately reflects all work, treatment, procedures, and medical decision making performed by me. Departure Information Dispostion Home / Self-Care Prescriptions Prochlorperazine Maleate (COMPAZINE) 10 Mg Tab 1 TAB PO Q6, #30 TAB 3 Refills Prov: Maicol Willett MD 12/28/16 Referrals No Doctor, Assigned (PCP) Anson Lucio M.D. Vachon, Leonie S., CRNP Forms HOME CARE DOCUMENTATION FORM, IMPORTANT VISIT INFORMATION Patient Instructions My [facility] Additional Instructions Follow up with Miss Mitchell's office You have been examined and treated today on an emergency basis only. This is not a substitute for, or an effort to provide, complete comprehensive medical care. It is impossible to recognize and treat all injuries or illnesses in a single emergency department visit. It is therefore important that you follow up closely with Dr Lucio. Call as soon as possible for an appointment. Thank you for your time and consideration. I look forward to speaking with you again soon. Please don't hesitate to call us if you have any questions. Problem Qualifiers Primary Impression: Intractable vomiting Vomiting type: unspecified Nausea presence: unspecified Qualified Codes: R11.10 - Vomiting, unspecified
[2016-12-28] MEDS ORDERED: OPTIRAY 320 IV PRN (11:00)
--- NOTE | 2016-12-28 11:23 | History and Physical ---
History & Physical Date & Time of Service: Dec 28, 2016 at 10:56 Chief Complaint: Vomiting, Not Eating-Over 1 Week Primary Care Physician: Anson Lcuio M.D. History of Present Illness Source: patient, clinic records, hospital records Patient is a pleasant 51 y/o female, with PMHx of anxiety/depression, anorexia, hypomagnesemia, hypokalemia, hypothyroidism, chronic constipation, gastroparesis , IBS, GERD, CKD stage III/IV, osteoporosis, chronic pain, who presented to the ED because of 1 week of N/V and anorexia. According to the patient, symptoms seem to be improving, but she was worried she was getting dehydrated, so she presented to the ED today. She denies any abdominal discomfort. Last episode of vomiting was on 12/27. She states she has been able to tolerate fluids, such as Gatorade. She has not been able to eating anything in 2 days. + diarrhea- last BM on 12/27. She notes she has had these episodes in the past. Denies any hospitalizations due to these episodes. She adamantly denies any body image issues and states her anorexia started because of an episode of sepsis secondary to food poisoning. Since that time, she has had ongoing GI issues. She notes that she has only followed with GI in the past for her colonoscopy and EGD- completed in 2016, both unremarkable. She mainly follows with Dr. Lucio for her medical issues. +fatigue/weakness. Patient denies any fever, chills, sweats, lightheadedness, dizziness, vision changes, CP, palpitations, edema, SOB, wheezing, cough, abdominal pain,urinary symptoms, melena, numbness/tingling, muscle/joint pain, anxiety/depression, active bleeding, or new skin discoloration/changes. According to Dr. Lucio's outpatient notes, patient has been dealing with anorexia for sometime now. She continues to decline help despite Dr. Lucio's efforts. In ED, patient was found to be hypoglycemic at 48. She was treated with Dextrose 50 ml x2 doses. BSG was rechecked by RN at 258. She does not want to be admitted. Agreed to abdominal CT scan to r/o any acute process. Past Medical/Surgical History Medical Problems: anxiety/depression anorexia hypomagnesemia hypokalemia hypothyroidism chronic constipation gastroparesis IBS GERD CKD stage III/IV osteoporosis chronic pain Family History Kidney disease Lung disease Social History Smoking Status: Never Smoker Drug Use: none Marital Status: Housing status: lives with family ( and son ) Immunizations History of Influenza Vaccine: Yes Influenza Vaccine Date: Feb 12, 2008 History of Tetanus Vaccine?: Unknown Tetanus Immunization Date: May 14, 2004 History of Pneumococcal: Yes History of Hepatitis B Vaccine: No Multi-Drug Resistant Organisms History of MDRO: No Allergies Coded Allergies: Penicillins (Verified Allergy, Mild, ITCHING, 12/28/16) Cephalexin (Verified Allergy, Unknown, unknown, 12/28/16) [facility] Cephalosporins (Verified Allergy, Unknown, unknown, 12/28/16) [facility] Home Medications Scheduled Calcium Carbonate-Vitamin D W/ (Caltrate 600 Plus), 1 TAB PO BID Cholecalciferol (Vitamin D 1000 Unit), 1,000 INTER.UNIT PO BID Estradiol (Estradiol Transdermal System), 1 PATCH TD 2XWK Gabapentin (Gabapentin), 600 MG PO TID Levothyroxine Sodium (Synthroid), 112 MCG PO QAM Lubiprostone (Amitiza), 24 MCG PO BID Magnesium Oxide (Mag-Ox), 400 MG PO TID Multivit/Min/Iron/Fol Ac/Pren ( Vitamin), 1 TABLET PO DAILY [place]-3 Fatty Acids (Fish Oil), 1 CAP PO DAILY Omeprazole (Prilosec), 20 MG PO BID Potassium Chloride (Micro-K Ext Rel), 20 TAB PO QID Probiotic Product (Probiotic), 1 CAP PO QAM Prochlorperazine Maleate (Compazine), 1 TAB PO Q6 Teriparatide (Recombinant) (Forteo), 20 MCG SQ DAILY Venlafaxine Hcl (Effexor Extended Rel), 150 MG PO QAM Vitamin B Cmplx/Vitc/Folic Ac (Nephrocaps), 1 CAP PO DAILY Scheduled PRN Ondansetron Hcl (Zofran), 4 MG PO Q4 PRN for Nausea or Vomiting Tramadol (Ultram), 50 MG PO TID PRN for Pain Physical Exam Vital Signs Date Time Temp Pulse Resp B/P (MAP) Pulse Ox O2 Delivery O2 Flow Rate FiO2 12/28/16 10:06 119 18 119/85 95 Room Air 12/28/16 08:40 112 12/28/16 08:19 36.5 110 20 125/88 99 Room Air General Appearance: no apparent distress, + cachetic, + thin (sunken cheeks ) Head: normocephalic, atraumatic Eyes: normal inspection, PERRL ENT: hearing grossly normal Neck: supple Respiratory/Chest: lungs clear, no respiratory distress, no accessory muscle use Cardiovascular: + tachycardia (rhythm regular ) Abdomen/GI: normal bowel sounds, non tender, soft Back: normal inspection Extremities/Musculoskelatal: no calf tenderness, no pedal edema Neurologic/Psych: alert, normal mood/affect, oriented x 3 Skin: normal color, warm/dry, no rash Diagnostics Laboratory Results Results Past 24 Hours Test 12/28/16 08:35 12/28/16 10:43 Range/Units White Blood Count 3.81 4.8-10.8 K/uL Red Blood Count 3.79 4.2-5.4 M/uL Hemoglobin 12.9 12.0-16.0 g/dL Hematocrit 38.6 37-47 % Mean Corpuscular Volume 101.8 80-100 fL Mean Corpuscular Hemoglobin 34.0 25-34 pg Mean Corpuscular Hemoglobin Concent 33.4 32-36 g/dl Platelet Count 176 130-400 K/uL Mean Platelet Volume 8.9 7.4-10.4 fL Neutrophils (%) (Auto) 47.2 % Lymphocytes (%) (Auto) 45.1 % Monocytes (%) (Auto) 5.8 % Eosinophils (%) (Auto) 0.3 % Basophils (%) (Auto) 1.6 % Neutrophils # (Auto) 1.80 1.4-6.5 K/uL Lymphocytes # (Auto) 1.72 1.2-3.4 K/uL Monocytes # (Auto) 0.22 0.11-0.59 K/uL Eosinophils # (Auto) 0.01 0-0.5 K/uL Basophils # (Auto) 0.06 0-0.2 K/uL RDW Standard Deviation 48.7 36.4-46.3 fL RDW Coefficient of Variation 13.0 11.5-14.5 % Immature Granulocyte % (Auto) 0.0 % Immature Granulocyte # (Auto) 0.00 0.00-0.02 K/uL Nucleated RBC Absolute Count (auto) 0.02 0-0 K/uL Nucleated Red Blood Cells % 0.5 % Sodium Level 134 136-145 mmol/L Potassium Level 3.9 3.5-5.1 mmol/L Chloride Level 98 98-107 mmol/L Carbon Dioxide Level 24 21-32 mmol/L Anion Gap 12.0 3-11 mmol/L Blood Urea Nitrogen 13 7-18 mg/dl Creatinine 1.30 0.60-1.20 mg/dl Est Creatinine Clear Calc Drug Dose 29.8 ml/min Estimated GFR () 55.0 Estimated GFR (Non- 47.5 BUN/Creatinine Ratio 10.2 10-20 Random Glucose 48 70-99 mg/dl Calcium Level 9.2 8.5-10.1 mg/dl Total Bilirubin 0.4 0.2-1 mg/dl Direct Bilirubin 0.2 0-0.2 mg/dl Aspartate Amino Transf (AST/SGOT) 42 15-37 U/L Alanine Aminotransferase (ALT/SGPT) 26 12-78 U/L Alkaline Phosphatase 90 45-117 U/L Total Protein 7.7 6.4-8.2 gm/dl Albumin 3.0 3.4-5.0 gm/dl Lipase 103 73-393 U/L Bedside Glucose 258 70-90 mg/dl Diagnostic Radiology CHEST AND ABDOMEN 2 VIEWS HISTORY: Vomiting. Generalized abdominal pain. COMPARISON: Chest and abdominal series 06/19/2016. FINDINGS: The lungs are clear. The cardiomediastinal silhouette is within normal limits. There is no pneumoperitoneum or pneumatosis. Gas and stool within the normal caliber colon. There are few mildly dilated gas-filled loops of small bowel within the midabdomen. These measure up to 3.4 cm in diameter. These demonstrate small fluid levels. Old, healed right-sided rib fractures. Postoperative changes within the proximal right humerus. Cholecystectomy. IMPRESSION: A few mildly dilated gas and fluid-filled loops of small bowel within the midabdomen. There remains gas and stool within the colon. Therefore, this favors a partial small bowel obstruction. An ileus or gastroenteritis could also have a similar appearance. Electronically signed by: Theron Alegria M.D. 12/28/2016 9:50 AM Dictated Date/Time: 12/28/2016 9:46 AM The status of this report is Signed. Draft = Not yet reviewed or approved by Radiologist. Signed = Reviewed and approved by Radiologist. SINUSES-MAXILLOFACIAL W/O CT DOSE: 221.03 mGycm HISTORY: Headache. Trauma. Pt c/o headache, broken nose, sinus pressure TECHNIQUE: Multiaxial CT images of the paranasal sinuses were performed and reformatted in the coronal plane without the use of contrast. A dose lowering technique was utilized adhering to the principles of ALARA. COMPARISON: None. FINDINGS: The frontal sinuses, ethmoid air cells, sphenoid sinuses, and bilateral maxillary antra are clear. The mastoid air cells are clear. The bilateral ostiomeatal units are patent. Slight nasal septal displacement to the right. Mild hypertrophic change of the nasal turbinates. The orbits are unremarkable. IMPRESSION: The paranasal sinuses and mastoid air cells are clear. Mild hypertrophic change of the nasal turbinates. The above report was generated using voice recognition software. It may contain grammatical, syntax or spelling errors. Electronically signed by: Tomas Ureña M.D. 12/28/2016 9:35 AM Dictated Date/Time: 12/28/2016 9:32 AM The status of this report is Signed. Draft = Not yet reviewed or approved by Radiologist. Signed = Reviewed and approved by Radiologist. CT ABD/PELVIS IV AND ORAL CONT CLINICAL HISTORY: Nausea and vomiting COMPARISON STUDY: Conventional radiographic study dated 12/28/2016, CT scan of the abdomen pelvis dated 08/04/2015 TECHNIQUE: Following the IV administration of 92 mL of Optiray-320, CT scan of the abdomen and pelvis was performed from the lung bases to the proximal femurs. Images are reviewed in the axial, sagittal, and coronal planes. IV contrast was administered without complication. A dose lowering technique was utilized adhering to the principles of ALARA. CT DOSE: 216.61 mGycm FINDINGS: Lower chest: The heart is normal in size and configuration, without pericardial effusion. The lung bases and pleural spaces are clear. Liver: The contrast-enhanced liver is normal in size, contour, and attenuation. There is no intrahepatic biliary ductal dilatation. The hepatic veins and portal veins are patent. Gallbladder: Surgically absent Spleen: Normal in size and attenuation. Pancreas: Unremarkable. Adrenal glands: Unremarkable. Kidneys: There is lobular left renal cortical scarring. There is a 2.5 mm left renal calcification. There are several left renal hypodensities largest of which measures 5 mm. These likely represent cysts. Bowel: There is mild colonic wall thickening, most pronounced at the level of the cecum. There is fluid within the colon. There are borderline dilated left mid abdominal small bowel loops measuring up to 29 mm. The distal small bowel is decompressed. Nevertheless an ileus is favored over a small bowel obstruction. Peritoneum: There is no intraperitoneal free air or abdominal ascites. Vasculature: The abdominal aorta is normal in course and caliber. Adenopathy: None. Pelvic viscera: The bladder, and pelvic viscera are unremarkable. Skeletal structures: There are multiple vertebral body compression deformities most pronounced at the L3 level. IMPRESSION: 1. Mild pancolonic wall thickening with excessive colonic fluid. The findings are consistent with a nonspecific enteritis 2. Mildly dilated left mid abdominal small bowel loops. Given the presumed enteritis, ileus is favored over a low-grade obstruction 3. No evidence of free air 4. Multiple vertebral body compression deformities 5. Lobular left renal cortical scarring Electronically signed by: Marshall Carver M.D. 12/28/2016 12:31 PM Dictated Date/Time: 12/28/2016 12:20 PM The status of this report is Signed. Draft = Not yet reviewed or approved by Radiologist. Signed = Reviewed and approved by Radiologist. Impression Assessment and Plan Patient is a pleasant 51 y/o female, with PMHx of anxiety/depression, anorexia, hypomagnesemia, hypokalemia, hypothyroidism, chronic constipation, gastroparesis , IBS, GERD, CKD stage III/IV, osteoporosis, chronic pain, who presented to the ED because of 1 week of N/V and anorexia. N/V and anorexia, ?likely secondary to psychiatry issue vs acute process: - IV NS bolus x1 - Abdominal x-ray and CT scan obtained and reviewed - Will need to continue close follow-up with PCP Hypoglycemia at 48, secondary to anorexia- RESOLVED: - Treated w/ Dextrose 50 ml x2 doses - Continue to encourage good intake Mild hyponatremia at 134, secondary to dehydration: Treated w/ IVF Tachycardia, likely secondary to dehydration: Treated w/ IVF Chronic constipation, gastroparesis, IBS, anorexia nervosa, GERD: Amitiza 24 mcg BID, Prilosec 20 mg BID Osteoporosis: Forteo 20 mcg SQ daily Hypomagnesemia, hypokalemia: Potassium chloride 20 mEq QID, Mag-Ox 400 mg TID Anxiety/depression: Effexor 150 mg QAM CKD stage III/IV- STABLE: Cr. 1.30- baseline per records Hypothyroidism: Synthroid 112 mch daily Chronic pain: Tramadol 50 mg TID PRN Dispo: Discharge to home- lives w/ son and - Patient did not wish to be admitted. Will need to follow-up with PCP within the next 2-3 days. PA Physician Supervision Note: I interviewed and examined the patient. Discussed with Lou SOLO and agree with findings and plan as documented in the note. 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 Recommend outpatient follow-up Documented By: Jay Hannon
[2016-12-28 11:32] VITALS: Ht 162.6 cm; Wt 36.9 kg
--- NOTE | 2016-12-28 12:32 | DIAGNOSTIC IMAGING REPORT ---
CT ABD/PELVIS IV AND ORAL CONT CLINICAL HISTORY: Nausea and vomiting COMPARISON STUDY: Conventional radiographic study dated 12/28/2016, CT scan of the abdomen pelvis dated 08/04/2015 TECHNIQUE: Following the IV administration of 92 mL of Optiray-320, CT scan of the abdomen and pelvis was performed from the lung bases to the proximal femurs. Images are reviewed in the axial, sagittal, and coronal planes. IV contrast was administered without complication. A dose lowering technique was utilized adhering to the principles of ALARA. CT DOSE: 216.61 mGycm FINDINGS: Lower chest: The heart is normal in size and configuration, without pericardial effusion. The lung bases and pleural spaces are clear. Liver: The contrast-enhanced liver is normal in size, contour, and attenuation. There is no intrahepatic biliary ductal dilatation. The hepatic veins and portal veins are patent. Gallbladder: Surgically absent Spleen: Normal in size and attenuation. Pancreas: Unremarkable. Adrenal glands: Unremarkable. Kidneys: There is lobular left renal cortical scarring. There is a 2.5 mm left renal calcification. There are several left renal hypodensities largest of which measures 5 mm. These likely represent cysts. Bowel: There is mild colonic wall thickening, most pronounced at the level of the cecum. There is fluid within the colon. There are borderline dilated left mid abdominal small bowel loops measuring up to 29 mm. The distal small bowel is decompressed. Nevertheless an ileus is favored over a small bowel obstruction. Peritoneum: There is no intraperitoneal free air or abdominal ascites. Vasculature: The abdominal aorta is normal in course and caliber. Adenopathy: None. Pelvic viscera: The bladder, and pelvic viscera are unremarkable. Skeletal structures: There are multiple vertebral body compression deformities most pronounced at the L3 level. IMPRESSION: 1. Mild pancolonic wall thickening with excessive colonic fluid. The findings are consistent with a nonspecific enteritis 2. Mildly dilated left mid abdominal small bowel loops. Given the presumed enteritis, ileus is favored over a low-grade obstruction 3. No evidence of free air 4. Multiple vertebral body compression deformities 5. Lobular left renal cortical scarring Electronically signed by: Marshall Carver M.D. 12/28/2016 12:31 PM Dictated Date/Time: 12/28/2016 12:20 PM
[2016-12-28] MEDS ORDERED: PROC1TAB5 PO (12:59)
[2016-12-28 13:08] VITALS: BP 97/63; PULSE 98; O2SAT 99
== END 2016-12-28 13:09 | disposition home or self-care (01) ==
LOC: C.EDB 08:13 → C.EDA 13:09
DX: R11.10 Vomiting, unspecified (principal); E16.2 Hypoglycemia, unspecified; K21.9 Gastro-esophageal reflux disease without esophagitis; K72.90 Hepatic failure, unspecified without coma; N19 Unspecified kidney failure; Z87.81 Personal history of (healed) traumatic fracture; Z79.899 Other long term (current) drug therapy; Z88.0 Allergy status to penicillin; Z88.8 Allergy status to other drugs, medicaments and biological substances; Z84.1 Family history of disorders of kidney and ureter

== ENCOUNTER → 2017-01-07 | Outpatient (CLI) | payer BC ==
[~2017-01-07] MED LIST changes: -LUBI8CAP4 PO; +PROC1TAB5 PO
== END | disposition home or self-care (01) ==
LOC: C.RDSM 13:15
PROVIDERS: ATTEND Physical Medicine & Rehabilitation Sports Medicine
DX: M17.0 Bilateral primary osteoarthritis of knee (principal)

== ENCOUNTER 2017-01-18 09:12 | Emergency (ER) | payer BC ==
[~2017-01-18] VITALS: Ht 162.6 cm; Wt 37.0 kg
[2017-01-18 09:15] VITALS: TEMP 36.6; Ht 162.6 cm; Wt 37.0 kg
[2017-01-18 09:31] VITALS: O2SAT 99
[2017-01-18] MEDS ORDERED: SODIUM CHLORIDE 0.9% 1000ML 1,000 ML IV STA ×2 (10:08)
[2017-01-18] MEDS ORDERED: KETOROLAC TROMETHAMINE 30 MG/ML VIAL IV STA (10:08)
--- NOTE | 2017-01-18 10:19 | EMERGENCY ROOM VISIT NOTE ---
History Report prepared by Olga: Rosa Mendoza Under the Supervision of: Dr. Chance De Guzman M.D. First contact with patient: 10:04 Chief Complaint: ALLERGIC REACTION Stated Complaint: BURNING SKIN FROM CAPZASIN History of Present Illness The patient is a 51 year old female who presents to the Emergency Room with complaints of constant burning foot pain after putting Capzasin cream on them about two hours ago. The patient notes that she followed the allergic reaction protocol for the cream which includes, washing the cream off, soaking in cold water, and washing using dish soap and olive oil. She notes that she has had no relief with following this protocol. She denies any fever, shaking, or chills. The patient used the capsaicin cream for neuropathy from her degenerative joint disease. Source of History: patient Onset: two hours ago Position: foot Quality: burning Timing: constant Associated Symptoms: No fevers, No chills Note: Pt denies shaking. Review of Systems See HPI for pertinent positives and negatives. A total of ten systems were reviewed and were otherwise negative. Past Medical & Surgical Medical Problems: (1) Acute Renal Failure, Unspecified (2) Alcohol dependence (3) E Coli Septicemia (4) Esophageal Reflux (5) Fx Ankle Nos-Closed (6) Fx Distal Radius Nec-Cl (7) Liver Disorders Nec (8) Liver Failure (9) OTH SEVERE MALNUTRITION (10) Renal Failure Nos Family History Kidney disease Lung disease Social History Smoking Status: Never Smoker Drug Use: none Marital Status: Housing Status: lives with family Current/Historical Medications Scheduled Calcium Carbonate-Vitamin D W/ (Caltrate 600 Plus), 1 TAB PO BID Cholecalciferol (Vitamin D 1000 Unit), 1,000 INTER.UNIT PO BID Estradiol (Estradiol Transdermal System), 1 PATCH TD 2XWK Gabapentin (Gabapentin), 600 MG PO TID Levothyroxine Sodium (Synthroid), 112 MCG PO QAM Lubiprostone (Amitiza), 24 MCG PO BID Magnesium Oxide (Mag-Ox), 400 MG PO TID Multivit/Min/Iron/Fol Ac/Pren ( Vitamin), 1 TABLET PO DAILY [place]-3 Fatty Acids (Fish Oil), 1 CAP PO DAILY Omeprazole (Prilosec), 20 MG PO BID Potassium Chloride (Micro-K Ext Rel), 20 TAB PO QID Probiotic Product (Probiotic), 1 CAP PO QAM Prochlorperazine Maleate (Compazine), 1 TAB PO Q6 Teriparatide (Recombinant) (Forteo), 20 MCG SQ DAILY Venlafaxine Hcl (Effexor Extended Rel), 150 MG PO QAM Vitamin B Cmplx/Vitc/Folic Ac (Nephrocaps), 1 CAP PO DAILY Scheduled PRN Ondansetron Hcl (Zofran), 4 MG PO Q4 PRN for Nausea or Vomiting Tramadol (Ultram), 50 MG PO TID PRN for Pain Allergies Coded Allergies: Penicillins (Verified Allergy, Mild, ITCHING, 12/28/16) Cephalexin (Verified Allergy, Unknown, unknown, 12/28/16) [employer] Cephalosporins (Verified Allergy, Unknown, unknown, 12/28/16) [employer] Physical Exam Vital Signs Date Time Temp Pulse Resp B/P (MAP) Pulse Ox O2 Delivery O2 Flow Rate FiO2 01/18/17 13:08 105 18 135/93 94 Room Air 01/18/17 11:29 105 16 157/108 99 Room Air 01/18/17 10:36 100 16 143/102 100 Room Air 01/18/17 09:33 104 18 138/96 100 Room Air 01/18/17 09:31 110 01/18/17 09:31 99 Room Air 01/18/17 09:18 100 Room Air 01/18/17 09:15 36.6 119 20 143/91 100 Room Air Physical Exam GENERAL: Awake, alert, well-appearing, in no distress HENT: Normocephalic, atraumatic. Oropharynx unremarkable. Dry MM. EYES: Normal conjunctiva. Sclera non-icteric. NECK: Supple. No nuchal rigidity. FROM. No JVD. RESPIRATORY: Clear to auscultation. CARDIAC: Sinus tachycardic rate. Extremities warm and well perfused. Pulses equal. ABDOMEN: Soft, non-distended. No tenderness to palpation. No rebound or guarding. No masses. RECTAL: Deferred. MUSCULOSKELETAL: Chest examination reveals no tenderness. The back is symmetrical on inspection without obvious abnormality. There is no CVA tenderness to palpation. No joint edema. LOWER EXTREMITIES: Calves are equal size bilaterally and non-tender. No edema. No discoloration. Mild erythema to dorsum of both feet, pulses and capillary refill normal. right heel desquamated skin which is chronic. NEURO: Normal sensorium. No sensory or motor deficits noted. SKIN: No rash or jaundice noted. Medical Decision & Procedures Laboratory Results 01/18/17 09:30 Red Blood Count 3.41, Mean Corpuscular Volume 97.9, Mean Corpuscular Hemoglobin 32.6, Mean Corpuscular Hemoglobin Concent 33.2, Mean Platelet Volume 9.3, Neutrophils (%) (Auto) 57.6, Lymphocytes (%) (Auto) 34.2, Monocytes (%) (Auto) 7.6, Eosinophils (%) (Auto) 0.2, Basophils (%) (Auto) 0.2, Neutrophils # (Auto) 2.59, Lymphocytes # (Auto) 1.54, Monocytes # (Auto) 0.34, Eosinophils # (Auto) 0.01, Basophils # (Auto) 0.01 01/18/17 09:30 Test 01/18/17 09:30 White Blood Count 4.50 K/uL (4.8-10.8) Red Blood Count 3.41 M/uL (4.2-5.4) Hemoglobin 11.1 g/dL (12.0-16.0) Hematocrit 33.4 % (37-47) Mean Corpuscular Volume 97.9 fL (80-100) Mean Corpuscular Hemoglobin 32.6 pg (25-34) Mean Corpuscular Hemoglobin Concent 33.2 g/dl (32-36) Platelet Count 122 K/uL (130-400) Mean Platelet Volume 9.3 fL (7.4-10.4) Neutrophils (%) (Auto) 57.6 % Lymphocytes (%) (Auto) 34.2 % Monocytes (%) (Auto) 7.6 % Eosinophils (%) (Auto) 0.2 % Basophils (%) (Auto) 0.2 % Neutrophils # (Auto) 2.59 K/uL (1.4-6.5) Lymphocytes # (Auto) 1.54 K/uL (1.2-3.4) Monocytes # (Auto) 0.34 K/uL (0.11-0.59) Eosinophils # (Auto) 0.01 K/uL (0-0.5) Basophils # (Auto) 0.01 K/uL (0-0.2) RDW Standard Deviation 45.7 fL (36.4-46.3) RDW Coefficient of Variation 12.8 % (11.5-14.5) Immature Granulocyte % (Auto) 0.2 % Immature Granulocyte # (Auto) 0.01 K/uL (0.00-0.02) Anion Gap 11.0 mmol/L (3-11) Est Creatinine Clear Calc Drug Dose 32.4 ml/min Estimated GFR () 60.6 Estimated GFR (Non- 52.3 BUN/Creatinine Ratio 8.6 (10-20) Calcium Level 8.2 mg/dl (8.5-10.1) Laboratory results reviewed by me Medications Administered Medications (Trade) Dose Ordered Sig/Mili Route Start Time Stop Time Status Last Admin Dose Admin Sodium Chloride 1,000 ml @ 999 mls/hr Q1H1M STAT IV 01/18/17 10:08 01/18/17 11:08 DC 01/18/17 10:33 999 MLS/HR Ketorolac Tromethamine (Toradol Inj) 30 mg NOW STAT IV 01/18/17 10:08 01/18/17 10:10 DC 01/18/17 10:34 30 MG Sodium Chloride 1,000 ml @ 999 mls/hr Q1H1M STAT IV 01/18/17 10:08 01/18/17 11:08 DC 01/18/17 10:33 999 MLS/HR ECG Indication: other (allergic reaction) Rate (beats per minute): 92 Rhythm: normal sinus Findings: no acute ischemic change, other (Normal axis) ED Course 1006: The patient was evaluated in room A11B. A complete history and physical exam was performed. 1008: Sodium Chloride 1000 ml @ 999 mls/hr IV, Toradol Inj 30 mg IV, Sodium Chloride 1000 ml @ 999 mls/hr IV. 1312: I reevaluated the patient. Discussed results and discharge instructions: She verbalized understanding and agreement. The patient is ready for discharge. Medical Decision I reviewed the patient's past medical history, medications, and the nursing notes as described above. Differential diagnosis: contact dermatitis and Capzasin topical over- application/overdose. The patient is a 51 y/o woman with pmhx of arthritis presents to the ED with sensation of foot burning after applying significant amount of capcaisin to her b/l feet, ankle and lower legs per hpi. On arrival the patient appears uncomortable but is in NAD. The patient was anxious appearing and tachycardic but otherwise AFVSS. EKG and labs unremarkable. Patient had already aggressively washed her legs to remove the capcaisin. The patient was given IVF and toradol with good effect and resolution of her sx. The patient was counseled on Capcasisin use, which involves thinly applying to only a small area. However, patient reports it was her first and last time she will try it. Findings and plan for follow-up d/w patient. Patient agreeable and d/c'd per discharge instructions. Medication Reconcilliation Current Medication List: was personally reviewed by me Blood Pressure Screening Patient's blood pressure: Normal blood pressure Impression Primary Impression: Adverse reaction to drug Scribe Attestation The scribe's documentation has been prepared under my direction and personally reviewed by me in its entirety. I confirm that the note above accurately reflects all work, treatment, procedures, and medical decision making performed by me. Departure Information Dispostion Home / Self-Care Referrals Anson Lucio M.D. (PCP) Forms HOME CARE DOCUMENTATION FORM, IMPORTANT VISIT INFORMATION Patient Instructions Contact Dermatitis, [facility] Additional Instructions Please follow up with your primary care physician in the next 1-3 days for re- evaluation. Your exam and lab results did not show signs of an emergent condition at this time. If you use capcaisin in the future, use small amounts amounts applied thinly to small area. Return to the emergency department for worsening symptoms as described in the accompanying instructions.
[2017-01-18 10:47] LABS: BASO % 0.2 %; BASO ABS # 0.01 K/uL (0-0.2); COMPLETE YES; EOS % 0.2 %; HEMATOCRIT 33.4 % (37-47); IG% 0.2 %; LYMPH % 34.2 %; LYMPH ABS # 1.54 K/uL (1.2-3.4); MEAN CELL VOLUME 97.9 fL (80-100); MEAN CORPUSCULAR HEMOGLOBIN 32.6 pg (25-34); MEAN CORPUSCULAR HGB CONC 33.2 g/dl (32-36); MEAN PLATELET VOLUME 9.3 fL (7.4-10.4); MONO % 7.6 %; NEUT % 57.6 %; PLATELET COUNT 122 K/uL (130-400); RED BLOOD COUNT 3.41 M/uL (4.2-5.4)
[2017-01-18 10:55] LABS: BUN/CREATININE RATIO 8.6 (10-20); CALCIUM 8.2 mg/dl (8.5-10.1); CREATININE 1.2 mg/dl (0.60-1.20); POTASSIUM 3.6 mmol/L (3.5-5.1)
[2017-01-18 13:08] VITALS: BP 135/93; PULSE 105; O2SAT 94
== END 2017-01-18 13:15 | disposition home or self-care (01) ==
LOC: C.EDB 09:13 → C.EDA 13:15
DX: T88.7XXA Unspecified adverse effect of drug or medicament, initial encounter (principal); X58.XXXA Exposure to other specified factors, initial encounter; N19 Unspecified kidney failure; K21.9 Gastro-esophageal reflux disease without esophagitis

== ENCOUNTER → 2017-01-29 | Outpatient (CLI) | payer BC ==
[2017-01-29 10:38] LABS: BASO % 0.2 %; BASO ABS # 0.01 K/uL (0-0.2); COMPLETE YES; HEMATOCRIT 33.5 % (37-47); IG% 0.3 %; LYMPH % 20.1 %; LYMPH ABS # 1.23 K/uL (1.2-3.4); MEAN CELL VOLUME 100.9 fL (80-100); MEAN CORPUSCULAR HEMOGLOBIN 33.1 pg (25-34); MEAN CORPUSCULAR HGB CONC 32.8 g/dl (32-36); MEAN PLATELET VOLUME 9.5 fL (7.4-10.4); MONO % 5.9 %; NEUT % 73.5 %; PLATELET COUNT 173 K/uL (130-400); RED BLOOD COUNT 3.32 M/uL (4.2-5.4); WHITE BLOOD COUNT 6.11 K/uL (4.8-10.8)
[2017-01-29 10:50] LABS: ALT/SGPT 18 U/L (12-78); BLOOD UREA NITROGEN 14 mg/dl (7-18); BUN/CREATININE RATIO 14.4 (10-20); CALCIUM 8.2 mg/dl (8.5-10.1); CARBON DIOXIDE 25 mmol/L (21-32); CHLORIDE 108 mmol/L (98-107); GLUCOSE 131 mg/dl (70-99); MAGNESIUM 1.4 mg/dl (1.8-2.4); POTASSIUM 3.8 mmol/L (3.5-5.1); SODIUM 141 mmol/L (136-145)
[2017-01-29 11:01] LABS: ALB/GLOB RATIO 0.7 (0.9-2); ALKALINE PHOSPHATASE 73 U/L (45-117); AST/SGOT 18 U/L (15-37); THYROID STIMULATING HORMONE 0.017 uIu/ml (0.300-4.500)
[2017-01-29 11:10] LABS: RUBELLA SCREEN IgG (AT CCH) IMMUNE (IMMUNE)
[2017-01-30 12:47] LABS: MUMPS IgG VALUE 44.1 AU/ML
== END | disposition home or self-care (01) ==
LOC: C.LAB1850 09:31
PROVIDERS: ATTEND Internal Medicine
DX: Z00.00 Encounter for general adult medical examination without abnormal findings (principal); N18.3 Chronic kidney disease, stage 3 (moderate)

== ENCOUNTER → 2017-04-18 | Outpatient (CLI) | payer BC | END | disposition home or self-care (01) | LOC: C.RDSM 09:47 | PROVIDERS: ATTEND Family Medicine | DX: M54.2 Cervicalgia (principal) ==

== ENCOUNTER → 2017-04-18 | Outpatient (CLI) | payer BC | END | disposition home or self-care (01) | LOC: C.RDSM 09:51 | PROVIDERS: ATTEND Physical Medicine & Rehabilitation | DX: M54.2 Cervicalgia (principal); S32.030A Wedge compression fracture of third lumbar vertebra, initial encounter for closed fracture; X58.XXXA Exposure to other specified factors, initial encounter ==

== ENCOUNTER → 2017-06-10 | Outpatient (CLI) | payer BC ==
--- NOTE | 2017-06-10 10:46 | DIAGNOSTIC IMAGING REPORT ---
L SHOULDER MIN 2 VIEWS CLINICAL HISTORY: LEFT SHOULDER PAIN COMPARISON: Left shoulder radiographs October 21, 2014. FINDINGS: Alignment of the left shoulder is anatomic. No fracture or suspicious lesion is identified. No erosions are identified. Joint spaces appear preserved. IMPRESSION: Unremarkable left shoulder radiographs. Electronically signed by: Tevin Watkins M.D. 06/10/2017 10:45 AM Dictated Date/Time: 06/10/2017 10:43 AM
== END | disposition home or self-care (01) ==
LOC: C.RDSM 14:15
PROVIDERS: ATTEND Physician Assistant
DX: M25.512 Pain in left shoulder (principal)

== ENCOUNTER → 2017-07-10 | Outpatient (CLI) | payer BC ==
--- NOTE | 2017-07-10 16:28 | DIAGNOSTIC IMAGING REPORT ---
L WRIST MIN 3 VIEWS ROUTINE CLINICAL HISTORY: LEFT WRIST PAIN COMPARISON: None. DISCUSSION: No fractures or dislocations are visualized. There is no evidence of erosive disease. IMPRESSION: 1. No fractures identified 2. No evidence of erosive disease Electronically signed by: Marshall Carver M.D. 07/10/2017 4:27 PM Dictated Date/Time: 07/10/2017 4:26 PM
== END | disposition home or self-care (01) ==
LOC: C.RDSM 16:01
PROVIDERS: ATTEND Physician Assistant
DX: S69.90XA Unspecified injury of unspecified wrist, hand and finger(s), initial encounter (principal); X58.XXXA Exposure to other specified factors, initial encounter

== ENCOUNTER → 2017-07-16 | Outpatient (CLI) | payer BC ==
--- NOTE | 2017-07-16 11:21 | DIAGNOSTIC IMAGING REPORT ---
L WRIST W/NAVICULAR MIN 3 VIEWS HISTORY: 51 years-old Female LEFT WRIST INJURY acute left wrist pain COMPARISON: Left wrist radiographs 07/10/2017 TECHNIQUE: 4 views of the left wrist FINDINGS: Minimal degenerative changes of the first carpometacarpal joint. No acute fracture or subluxation. The scaphoid appears intact. No opaque foreign body. Soft tissues are unremarkable. IMPRESSION: No acute fracture or subluxation. The above report was generated using voice recognition software. It may contain grammatical, syntax or spelling errors. Electronically signed by: Kris Godoy M.D. 07/16/2017 11:20 AM Dictated Date/Time: 07/16/2017 11:19 AM
== END | disposition home or self-care (01) ==
LOC: C.RDSM 15:04
PROVIDERS: ATTEND Physician Assistant
DX: S69.92XA Unspecified injury of left wrist, hand and finger(s), initial encounter (principal); X58.XXXA Exposure to other specified factors, initial encounter

== ENCOUNTER → 2017-08-05 | Outpatient (CLI) | payer BC ==
--- NOTE | 2017-08-05 11:03 | DIAGNOSTIC IMAGING REPORT ---
L WRIST W/NAVICULAR MIN 3 VIEWS CLINICAL HISTORY: Left wrist pain w/navicular trauma. Pain. COMPARISON: 07/16/2017 DISCUSSION: Transverse cortical fracture distal radial metaphysis. All remaining osseous structures show no additional acute bony antibody. No evidence of dislocation. There is no evidence for soft tissue swelling. IMPRESSION: Transverse nondisplaced cortical buckle fracture distal radial metaphysis. The above report was generated using voice recognition software. It may contain grammatical, syntax or spelling errors. Electronically signed by: Tomas Ureña M.D. 08/05/2017 11:02 AM Dictated Date/Time: 08/05/2017 11:01 AM
== END | disposition home or self-care (01) ==
LOC: C.RDSM 11:00
PROVIDERS: ATTEND Physician Assistant
DX: S52.592A Other fractures of lower end of left radius, initial encounter for closed fracture (principal); X58.XXXA Exposure to other specified factors, initial encounter

== ENCOUNTER → 2017-08-23 | Outpatient (CLI) | payer BC ==
--- NOTE | 2017-08-23 12:36 | DIAGNOSTIC IMAGING REPORT ---
KUB CLINICAL HISTORY: Upper abdominal pain. FINDINGS: An AP supine abdominal radiograph is compared to radiographs and abdominal CT dated 12/28/2016. There is a nonobstructed abdominal bowel gas pattern. Cholecystectomy clips are noted. There are no abnormal abdominal calcifications. The bony structures appear intact. IMPRESSION: Nonobstructed abdominal bowel gas pattern. Electronically signed by: James Mandujano M.D. 08/23/2017 12:34 PM Dictated Date/Time: 08/23/2017 12:34 PM
[2017-08-23 16:36] LABS: BASO % 0.4 %; BASO ABS # 0.05 K/uL (0-0.2); EOS % 0.8 %; HEMATOCRIT 34.7 % (37-47); HEMOGLOBIN 11.7 g/dL (12.0-16.0); IG# 0.02 K/uL (0.00-0.02); LYMPH ABS # 2.32 K/uL (1.2-3.4); MEAN CELL VOLUME 95.3 fL (80-100); MEAN CORPUSCULAR HEMOGLOBIN 32.1 pg (25-34); MEAN CORPUSCULAR HGB CONC 33.7 g/dl (32-36); MEAN PLATELET VOLUME 8.9 fL (7.4-10.4); MONO % 7.4 %; MONO ABS # 0.91 K/uL (0.11-0.59); NEUT % 72.2 %; NEUT ABS # 8.82 K/uL (1.4-6.5); PLATELET COUNT 212 K/uL (130-400); RED CELL DISTRIBUTION WIDTH CV 14.2 % (11.5-14.5); RED CELL DISTRIBUTION WIDTH SD 49.7 fL (36.4-46.3); WHITE BLOOD COUNT 12.22 K/uL (4.8-10.8)
[2017-08-23 16:51] LABS: ALBUMIN 2.7 gm/dl (3.4-5.0); ALT/SGPT 23 U/L (12-78); BLOOD UREA NITROGEN 23 mg/dl (7-18); CALCIUM 8.3 mg/dl (8.5-10.1); CARBON DIOXIDE 19 mmol/L (21-32); CREATININE 1.16 mg/dl (0.60-1.20); GLUCOSE 78 mg/dl (70-99); POTASSIUM 3.4 mmol/L (3.5-5.1); SODIUM 140 mmol/L (136-145)
[2017-08-23 17:01] LABS: ALKALINE PHOSPHATASE 71 U/L (45-117); AST/SGOT 23 U/L (15-37); TOTAL PROTEIN 6.4 gm/dl (6.4-8.2)
== END | disposition home or self-care (01) ==
LOC: C.RADBC 12:11
PROVIDERS: ATTEND Physician Assistant Medical
DX: R10.11 Right upper quadrant pain (principal)

== ENCOUNTER → 2017-08-26 | Outpatient (CLI) | payer BC ==
--- NOTE | 2017-08-26 11:52 | DIAGNOSTIC IMAGING REPORT ---
Left wrist 3 views CLINICAL HISTORY: LEFT WRIST FX. Left wrist pain. COMPARISON STUDY: Left wrist 08/05/2017. FINDINGS: Faint transverse sclerosis within the distal metaphysis of the radius. This is consistent with a subacute/healing fracture. There is also focal buckling of the distal radius. There is mild soft tissue swelling within the wrist. No dislocation. The fracture does not appear to extend to the articular surface. IMPRESSION: Subacute/healing nondisplaced fracture involving the distal left radius. Electronically signed by: Theron Alegria M.D. 08/26/2017 11:51 AM Dictated Date/Time: 08/26/2017 11:49 AM
== END | disposition home or self-care (01) ==
LOC: C.RDSM 18:44
PROVIDERS: ATTEND Physician Assistant
DX: T14.8XXA Other injury of unspecified body region, initial encounter (principal); S52.509D Unspecified fracture of the lower end of unspecified radius, subsequent encounter for closed fracture with routine healing; X58.XXXA Exposure to other specified factors, initial encounter

== ENCOUNTER → 2017-08-26 | Outpatient (CLI) | payer BC ==
--- NOTE | 2017-08-26 16:01 | DIAGNOSTIC IMAGING REPORT ---
ABDOMEN COMPLETE (US) CLINICAL HISTORY: R10.11 Right upper quadrant abdominal painD72.829 Elevated white count COMPARISON STUDY: Biliary ultrasound dated 12/02/2011, CT scan dated December 28, 2016 FINDINGS: The pancreas appears sonographically normal. No focal hepatic masses are visualized. No splenic masses are visualized. The spleen measures 7 cm in length. The gallbladder surgically absent. The right kidney measures 8 cm in length. The left kidney measures 6.6 cm in length. There is a suspected 6 mm left renal cyst There is equivocal medullary nephrocalcinosis. There is no ductal dilatation. The common bile duct measures 5 mm. There is no evidence of abdominal aortic aneurysm. The IVC is patent. IMPRESSION: 1. Surgically absent gallbladder. No evidence of ductal dilatation 2. Equivocal medullary nephrocalcinosis. No evidence of hydronephrosis. 3. Ultrasonographically normal pancreas spleen and liver. Electronically signed by: Marshall Carver M.D. 08/26/2017 4:00 PM Dictated Date/Time: 08/26/2017 3:57 PM
== END | disposition home or self-care (01) ==
LOC: C.ULTRBC 14:55
PROVIDERS: ATTEND Physician Assistant Medical
DX: D72.829 Elevated white blood cell count, unspecified (principal); R10.11 Right upper quadrant pain

== ENCOUNTER → 2017-09-30 | Outpatient (CLI) | payer BC ==
[~2017-09-30] MED LIST changes: +PROC10TA PO; -PROC1TAB5 PO
--- NOTE | 2017-09-30 12:19 | DIAGNOSTIC IMAGING REPORT ---
LEFT WRIST 4 VIEWS HISTORY: LEFT WRIST FX COMPARISON: Left wrist 08/26/2017. FINDINGS: Progressive sclerosis within the transverse fracture at the distal radius. This is consistent with continued healing/healed fracture. Mild soft tissue swelling. The carpal bones appear intact. No dislocation. No significant displacement. The bones are osteopenic. No radiopaque foreign bodies. IMPRESSION: Progressive healing/healed fracture seen within the distal left radius. Electronically signed by: Theron Alegria M.D. 09/30/2017 12:18 PM Dictated Date/Time: 09/30/2017 12:08 PM
== END | disposition home or self-care (01) ==
LOC: C.RDSM 11:35
PROVIDERS: ATTEND Physician Assistant
DX: S52.502D Unspecified fracture of the lower end of left radius, subsequent encounter for closed fracture with routine healing (principal); X58.XXXD Exposure to other specified factors, subsequent encounter

== ENCOUNTER → 2017-12-20 | Outpatient (CLI) | payer BC ==
[~2017-12-20] MED LIST changes: -B-CO1CAP17 PO; +B-COCAP2 PO; +ESTRODOL TOP; -TERI600S SQ
--- NOTE | 2017-12-20 10:31 | DIAGNOSTIC IMAGING REPORT ---
C-SPINE ROUTINE 4 OR 5 VIEWS HISTORY: Pain. Neuropathy. CERVICALGIA,LUMBAGO,COMP FX COMPARISON: None. FINDINGS: The cervical spine is visualized from C1 through the superior endplate of T1. There is no fracture. No subluxation. Disc spaces are preserved. There are findings of moderate osteophytic narrowing of the neuroforamina bilaterally at C5-C6 and C6-C7. IMPRESSION: Moderate osteophytic narrowing of the neuroforamina bilaterally at C5-C6 and C6-C7. Otherwise negative study. The above report was generated using voice recognition software. It may contain grammatical, syntax or spelling errors. Electronically signed by: Tomas Ureña M.D. 12/20/2017 10:29 AM Dictated Date/Time: 12/20/2017 10:28 AM
--- NOTE | 2017-12-20 10:39 | DIAGNOSTIC IMAGING REPORT ---
L-SPINE MIN 4 VIEWS ROUTINE CLINICAL HISTORY: 52 years-old Female presenting with CERVICALGIA,LUMBAGO,COMP FX. TECHNIQUE: Frontal, bilateral oblique, lateral, and coned in lateral views of the lumbar spine were obtained. COMPARISON: 04/18/2017. FINDINGS: Cholecystectomy clips noted. Nonobstructive bowel gas pattern. No scoliosis. Normal lumbar lordosis. Moderate compression deformity of L3 as on prior exam. Concavity of the anterior aspect of the inferior endplate of L1 may also represent an old compression deformity or Schmorl's node, unchanged from prior. Moderate anterior vertebral body height loss at T12 also unchanged. No evidence of a new compression deformity. Intervertebral disc heights preserved. No advanced degenerative change. No radiographic evidence of subluxation. No osseous neural foraminal narrowing. No significant facet arthropathy. No pars defect. IMPRESSION: Unchanged appearance of the multilevel compression fractures. No radiographic evidence of an acute osseous injury or advanced degenerative change. Electronically signed by: Anson Cueto M.D. 12/20/2017 10:38 AM Dictated Date/Time: 12/20/2017 10:36 AM
[2017-12-20 13:30] LABS: BASO % 1.2 %; BASO ABS # 0.07 K/uL (0-0.2); EOS % 1.4 %; EOS ABS # 0.08 K/uL (0-0.5); HEMATOCRIT 39.1 % (37-47); HEMOGLOBIN 12.7 g/dL (12.0-16.0); IG# 0.01 K/uL (0.00-0.02); LYMPH % 36.7 %; LYMPH ABS # 2.12 K/uL (1.2-3.4); MEAN CELL VOLUME 98.2 fL (80-100); MEAN CORPUSCULAR HEMOGLOBIN 31.9 pg (25-34); MEAN CORPUSCULAR HGB CONC 32.5 g/dl (32-36); MEAN PLATELET VOLUME 10.1 fL (7.4-10.4); MONO % 8.5 %; MONO ABS # 0.49 K/uL (0.11-0.59); NEUT ABS # 3.01 K/uL (1.4-6.5); PLATELET COUNT 211 K/uL (130-400); RED CELL DISTRIBUTION WIDTH CV 14.1 % (11.5-14.5); RED CELL DISTRIBUTION WIDTH SD 50.5 fL (36.4-46.3); WHITE BLOOD COUNT 5.78 K/uL (4.8-10.8)
[2017-12-20 14:00] LABS: T3 FREE 2.18 pg/ml (2.30-4.20)
[2017-12-20 14:07] LABS: ALKALINE PHOSPHATASE 76 U/L (45-117); ALT/SGPT 27 U/L (12-78); AST/SGOT 33 U/L (15-37); BLOOD UREA NITROGEN 28 mg/dl (7-18); CALCIUM 8.4 mg/dl (8.5-10.1); CARBON DIOXIDE 20 mmol/L (21-32); CREATININE 1.64 mg/dl (0.60-1.20); GLUCOSE 76 mg/dl (70-99); POTASSIUM 3.3 mmol/L (3.5-5.1); SODIUM 137 mmol/L (136-145)
== END | disposition home or self-care (01) ==
LOC: C.RADBC 09:55
PROVIDERS: ATTEND Anesthesiology
DX: M54.2 Cervicalgia (principal); M54.5 Low back pain; M81.0 Age-related osteoporosis without current pathological fracture; E03.9 Hypothyroidism, unspecified; N18.3 Chronic kidney disease, stage 3 (moderate); D64.9 Anemia, unspecified; E43 Unspecified severe protein-calorie malnutrition; G89.4 Chronic pain syndrome; D75.89 Other specified diseases of blood and blood-forming organs; R60.0 Localized edema; E86.0 Dehydration; E87.6 Hypokalemia

== ENCOUNTER → 2017-12-20 | Outpatient (CLI) | payer BC ==
--- NOTE | 2017-12-23 13:10 | MAMMOGRAPHY REPORT ---
BILATERAL DIGITAL SCREENING MAMMOGRAM TOMOSYNTHESIS WITH CAD: 12/20/2017 CLINICAL HISTORY: Routine screening. Patient has no complaints. TECHNIQUE: The study was acquired using full field digital technology and interpreted from soft copy. Breast tomosynthesis in addition to standard 2D mammography was performed. Current study was also ev aluated with a Computer Aided Detection (CAD) system. COMPARISON: Comparison is made to exams dated: 02/02/2016 mammogram - [facility], 1 06/10/2006, 04/13/2008, and 09/16/2012 mammogram - [facility]. BREAST COMPOSITION: The tissue of both breasts is extremely dense, which lowers the sensitivity of ma mmography. FINDINGS: No suspicious masses, calcifications, or areas of architectural distortion are noted in either breast . There has been no significant interval change compared to prior exams. IMPRESSION: ACR BI-RADS CATEGORY 1: NEGATIVE There is no mammographic evidence of malignancy. A 1 year screening mammogram is recommended.( 019) The patient will receive written notification of the results. Some breast cancers are not detected with mammography. A negative mammographic report should not killian y biopsy if a clinically suggestive mass is present. Omayra Brown M.D. ah/:12/20/2017 16:03:36 Offal Icer Poultry: RT Patricia(Heidi)(M), [facility] letter sent: Normal 1/2 BI-RADS Code: ACR BI-RADS Category 1: Negative
== END | disposition home or self-care (01) ==
LOC: C.MAMM 08:34
PROVIDERS: ATTEND Obstetrics & Gynecology
DX: Z12.31 Encounter for screening mammogram for malignant neoplasm of breast (principal)

== ENCOUNTER 2018-06-25 09:29 | Inpatient (IN) ==
[2018-06-25] MEDS ORDERED: D5W AND 1/2NSS 1,000 ML IV SCH (10:00)
[2018-06-25] MEDS ORDERED: SODIUM CHLORIDE 0.9% 1000ML 1,000 ML IV SCH (10:00)
[2018-06-25 10:06] LABS: Basophils # (auto) 0.05 K/uL (0-0.2); Basophils % (auto) 0.9 %; Eosinophils # (auto) 0.06 K/uL (0-0.5); Eosinophils % (auto) 1.1 %; Hemoglobin 12.1 g/dL (12.0-16.0); Immature Granulocytes # (auto) 0.01 K/uL (0.00-0.02); Immature Granulocytes % (auto) 0.2 %; Lymphocytes # (auto) 2.49 K/uL (1.2-3.4); Lymphocytes % (auto) 44.1 %; Mean Corpuscular Hgb Conc 32.7 g/dL (32-36); Mean Corpuscular Volume 100.5 fL (80-100); Mean Platelet Volume 9.5 fL (7.4-10.4); Monocytes # (auto) 0.33 K/uL (0.11-0.59); Monocytes % (auto) 5.8 %; Neutrophils # (auto) 2.71 K/uL (1.4-6.5); Neutrophils % (auto) 47.9 %; Platelet Count 180 K/uL (130-400); RDW Coefficient of Variation 13.6 % (11.5-14.5); Red Blood Count 3.68 M/uL (4.2-5.4); White Blood Count 5.65 K/uL (4.8-10.8)
[2018-06-25 10:17] LABS: Prothrombin Time 9.8 Seconds (9.0-12.0)
[2018-06-25 10:22] LABS: Alanine Aminotransferase 29 U/L (12-78); Aspartate Aminotransferase 51 U/L (15-37); BUN Creatinine Ratio 15.4 (10-20); Blood Urea Nitrogen 25 mg/dl (7-18); Calcium 7.9 mg/dl (8.5-10.1); Carbon Dioxide 19 mmol/L (21-32); Chloride 116 mmol/L (98-107); Creatinine Clr Calc Pharmacy 26.6 ml/min; Est GFR (African American) 42.5; Est GFR (Non-African American) 36.7; Glucose 69 mg/dl (70-99); Magnesium 2.3 mg/dl (1.8-2.4); Potassium 4.1 mmol/L (3.5-5.1); Sodium 142 mmol/L (136-145)
--- NOTE | 2018-06-25 10:22 | XRay Report ---
XR chest 1V portable CLINICAL HISTORY: weakness WEAKNESS, RIB PAIN. COMPARISON STUDY: 04/08/2018 FINDINGS: The cardiac and mediastinal contours are normal. There is no evidence of focal pulmonary co nsolidation. There is no evidence of failure. No pleural effusions are visualized.[ IMPRESSION: No active disease in the chest. Electronically signed by: Marshall Carver M.D. 06/25/2018 10:20 AM
[2018-06-25 10:25] LABS: Base Excess VBG -8.1 mEq/L; HCO3 VBG 20 mmol/L; PCO2 VBG 49 mmHg (38-50); PO2 VBG 28 mmHg; pH VBG 7.22 (7.36-7.41)
[2018-06-25] MEDS ORDERED: DEXTROSE 50% 50 ML SYRINGE IV ONE (10:27)
[2018-06-25 10:30] LABS: Acetaminophen < 2 ug/ml (10-30); Salicylate < 1.7 mg/dl (2.8-20)
[2018-06-25 10:31] LABS: Oxygen Saturation VBG < 60.0 %
[2018-06-25] MEDS ORDERED: CALCIUM GLUCONATE 10% 10 ML VIAL IV STA (10:32)
[2018-06-25 10:33] LABS: Albumin Globulin Ratio 0.8 (0.9-2); Alkaline Phosphatase 73 U/L (45-117); Bilirubin,Total 0.2 mg/dl (0.2-1); Creatine Kinase 38 U/L (26-192); Phosphorus 1.9 mg/dl (2.5-4.9); Troponin I < 0.015 ng/ml (0-0.045)
--- NOTE | 2018-06-25 10:46 | CT Scan Report ---
HEAD CT NONCONTRAST CT DOSE: 638.56 mGycm HISTORY: intermittent loss of consciousness TECHNIQUE: Multiaxial CT images of the head were performed without the use of intravenous contrast. A utomated exposure control was utilized for this study. A dose lowering technique was utilized adheri ng to the principles of ALARA. Comparison: Head CT 04/08/2018. Findings: The paranasal sinuses and mastoid air cells are clear. The calvarium and skull base are int act. There is no mass, hematoma, midline shift, acute infarct. White matter hypodensity is nonspecifi c but suggestive of microvascular ischemic change. The ventricles and sulci demonstrate are within no rmal limits. Stable prominent perivascular space inferior to the right basal ganglia. Anterior nasal septal perforation is noted. Impression: No acute intracranial abnormality. Electronically signed by: Theron Alegria M.D. 06/25/2018 10:45 AM
[2018-06-25 10:51] LABS: T4 Free Thyroxine 1.21 ng/dl (0.8-1.6)
[2018-06-25] MEDS ORDERED: SODIUM CHLORIDE 0.9% 1000ML 1,000 ML IV ONE (12:19)
[2018-06-25] MEDS ORDERED: D5W AND LACTATED RINGERS 1,000 ML IV STA (12:29)
[2018-06-25] MEDS ORDERED: INFLUENZA VIRUS QUAD VACCINE 0.5 ML SYR IM ONE (14:15)
[2018-06-25] MEDS ORDERED: INFLUENZA ADMINISTRATION CHARGE ONE (14:15)
[2018-06-25 15:21] LABS: HCO3 VBG 18 mmol/L; PCO2 VBG 48 mmHg (38-50); PO2 VBG 26 mmHg; pH VBG 7.19 (7.36-7.41)
[2018-06-25 15:25] LABS: Oxygen Saturation VBG < 60.0 %
[2018-06-25 15:48] LABS: BUN Creatinine Ratio 13.1 (10-20); Calcium 7.4 mg/dl (8.5-10.1); Creatinine Clr Calc Pharmacy 27.8 ml/min; Est GFR (African American) 44.9; Est GFR (Non-African American) 38.7; Potassium 4.3 mmol/L (3.5-5.1)
--- NOTE | 2018-06-25 16:48 | History & Physical Report ---
Date of Service June 25, 2018 Assessment & Plan (1) Encephalopathy: 51 y/o female, Hx of anxiety/depression, severe anorexia, chronic electrolyte deficiencies, hypothyroidism, gastroparesis, IBS with constipation, GERD, CKD stage III, osteoporosis, chronic pain. Presents following 2-3 syncopal episodes this AM which occurred while exercising or shortly after. There was no reported seizure activity and she apparently has had this issue before when dehydrated. She was somnolent on arrival to the ER and is not helpful with the H&P. She denied taking medications aside from what is prescribed to her, and denies any drug or alcohol intake. She is somnolent at the time of admission to the medical service and could not additionally contribute to the HPI. Initial labs are notable for acidosis, protein malnutrition, mild hypocalcemia and hypophosphatemia. There is no apparent source of infection on initial evaluation. Her had provided that she has had cognitive issues related to her Anorexia in the past and was recently at [facility] for 2 weeks due to encephalopathy. 1) AMS - Cause is not clear. Her TSH is overly suppressed although her symptoms are not consistent with hyperthyroidism. There is no apparent source of infection. She takes Gabapentin, Buspar, Venlafaxine, Tramadol and Baclofen which at higher doses could factor in. We will observe her on telemetry and obtain an MRI brain. She will be evaluated by psychiatry, IVF provided overnight and above meds held. 2) Syncope - Elecrolyte deficiencies are not severe at present. We suspect this is more related to either hypoglycemia as her glu has been low in the past and was marginal on arrival, or volume depletion. She is placed on a monitor overnight. 3) Elcrolyte deficiencies - Low Ca, low phos - repleted - repeat labs AM 4) Acidosis on VBG - Likely due to ketosis - IVF and nutritional supplementation ordered. She may need parenteral nutrition if she is unable to tolerate PO for an extended period. 5) CKD III - Creat is at baseline 6) Regarding her anorexia - This has been an issue for several years and she has refused treatment. A Psychiatry eval is pending. 7) Hypothyroidism - TSH is over-suppressed - T4 is WNL - we will hold Synthroid for a few days 8) Chronic pain - Takes Tramadol which is held for now - this may be a new medication and a leading culprit for her AMS 9) Anxiety and depression - Buspar and Venlafaxine held pending input from psych and improvement in her mentation Full code - Heparin prophylaxis Total time for this admit including review of labs, meds, imaging, records - minimal discussion with pt and ER attending - 46 min was not available to medicine at the time of admission - he did discuss pt with ER attending however. Present on Admission?: Yes History of Present Illness Chief Complaint: Syncope, AMS Primary Care Provider: Anson Lucio MD 51 y/o female, Hx of anxiety/depression, severe anorexia, chronic electrolyte deficiencies, hypothyroidism, gastroparesis, IBS with constipation, GERD, CKD stage III, osteoporosis, chronic pain. Presents following 2-3 syncopal episodes this AM which occurred while exercising or shortly after. There was no reported seizure activity and she apparently has had this issue before when dehydrated. She was somnolent on arrival to the ER and is not helpful with the H&P. She denied taking medications aside from what is prescribed to her, and denies any drug or alcohol intake. She is somnolent at the time of admission to the medical service and could not additionally contribute to the HPI. Initial labs are notable for acidosis, protein malnutrition, mild hypocalcemia and hypophosphatemia. There is no apparent source of infection on initial evaluation. Her had provided that she has had cognitive issues related to her Anorexia in the past and was recently at [facility] for 2 weeks due to encephalopathy. 1) Anxiety/depression 2) Anorexia - long-term and severe - BMI 15 - has refused treatment for this 3) Hypomagnesemia 4) Gastroparesis 5) IBS - constipation 6) GERD 7) CKD III 8) Osteoporosis 9) Chronic pain Could not obtain surgical, social, family history on admission Allergies Allergy/AdvReac Type Severity Reaction Status Date / Time Penicillins Allergy Mild ITCHING Verified 06/25/18 10:31 cephalexin Allergy Unknown unknown Verified 06/25/18 10:31 Cephalosporins Allergy Unknown unknown Verified 06/25/18 10:31 Home Medications Home Medications Medication Instructions Recorded Confirmed Type calcium 600 mg-D3 800 unit-mag11 1 tab PO BID 02/04/18 06/25/18 History 50 dg-dzef-xpobpf-lexis-s.borat tablet cholecalciferol (vitamin D3) 1,000 1,000 units PO DAILY 02/04/18 06/25/18 History unit capsule estradiol 0.05 mg/24 hr semiweekly 1 patch TOPICAL 2XWK ea 02/04/18 06/25/18 History transdermal patch gabapentin 600 mg tablet 600 mg PO TID 02/04/18 06/25/18 History lactobacillus combination no.8 3 3,000 mmu cells PO DAILY 02/04/18 06/25/18 History billion cell capsule levothyroxine 112 mcg tablet 112 mcg PO DAILY 02/04/18 06/25/18 History lubiprostone 24 mcg capsule 24 mcg PO BID 02/04/18 06/25/18 History magnesium oxide 400 mg (241.3 mg 400 mg PO TID tab 02/04/18 06/25/18 History magnesium) tablet multivitamin tablet 1 tab PO DAILY 02/04/18 06/25/18 History omega-3 fatty acids 1,000 mg 1,000 mg PO DAILY 02/04/18 06/25/18 History capsule omeprazole 20 mg capsule,delayed 20 mg PO BID cap 02/04/18 06/25/18 History release potassium chloride ER 10 mEq 20 meq PO QID cap 02/04/18 06/25/18 History capsule,extended release tramadol 50 mg tablet 50 mg PO TID PRN tab 02/04/18 06/25/18 History venlafaxine ER 150 mg 150 mg PO DAILY 02/04/18 06/25/18 History capsule,extended release 24 hr vitamin B complex and vitamin C 1 cap PO DAILY 02/04/18 06/25/18 History no.20-folic acid 1 mg capsule baclofen 5 - 10 mg PO DIRECTED 06/25/18 06/25/18 History biotin 5 mg PO DAILY 06/25/18 06/25/18 History buspirone 5 mg PO DAILY 06/25/18 06/25/18 History levothyroxine 100 mcg PO DAILY 06/25/18 06/25/18 History fjbpzwqd-[id number]-ywxl fum-folic 1 tab PO DAILY 06/25/18 06/25/18 History [Vol-Plus] norelgestromin-ethin.estradiol 1 patch TOPICAL WK 06/25/18 06/25/18 History [Xulane] teriparatide [Forteo] 20 mcg SUBCUT DAILY 06/25/18 06/25/18 History tretinoin 1 applic TOPICAL HS 06/25/18 06/25/18 History venlafaxine 37.5 mg PO DAILY 06/25/18 06/25/18 History venlafaxine 37.5 mg PO DAILY 06/25/18 06/25/18 History Past Med/Surg History Medical History Lumbar facet joint syndrome (Chronic) Cervical facet syndrome (Chronic) Irritable bowel syndrome (Chronic) Depression (Chronic) Chronic renal disease, stage III (Chronic) Compression fracture (Resolved) L3 Osteoporosis (Chronic) Hypothyroidism (Chronic) Anorexia (Chronic) Anemia (Chronic) CHI (closed head injury) (Chronic) Cervical strain, acute (Resolved) Dehydration (Resolved) Electrolyte imbalance (Resolved 09/27/11) Facial laceration (Resolved) Fall (Resolved) Nasal bone fracture (Resolved) Pyelonephritis, acute (Resolved 03/11/13) Vomiting (Resolved) Kidney disease Surgical History History of arthroscopy of right shoulder (Resolved) History of carpal tunnel surgery of left wrist (Resolved) Social History Current Living Situation: Spouse and Family Other Information That Helps Us Care for You: No Feels Safe at Home: Declines to Answer Smoking Status: Never smoker Do You Dip or Chew Tobacco: No Second Hand Exposure: No Tobacco Cessation Education Requested by Patient: No Hx Alcohol Use: Yes Alcohol type: wine Alcohol Intake Frequency: a few times a week Hx Substance Use: Yes substance use type: prescription drug Beliefs That Will Affect Care: None Preferred Language: [place] Communication Ability: Impaired Communication Ability Comment: lethargic at this time, shallow breathing Television Camera Operator Required: No Review of Systems cannot obtain a reliable ROS due to AMS Physical Exam 2 Vital Signs (Past 24 Hours): Last Vital Signs Temp 36.5 C 06/25/18 09:32 Pulse 60 06/25/18 15:14 Resp 24 06/25/18 15:14 BP 132/85 06/25/18 15:14 Pulse Ox 100 06/25/18 15:14 Physical Exam: General: Thid, Somnolent - occasionally wakes to provide a brief answer - no distress - breathing comfortably lying flat ENT: No erythema or exudates, no thrush Eyes: REFUGIO, EOMI Head and neck: Normocephalic, atraumatic, No JVD, neck is supple. Chest/heart: Nontender, S1,2, RRR, no murmurs, no gallops Lungs: CTAB, no wheezing or crackles Abdomen: Nontender, nondistended, BS+ Neuro: Somnolent as above - no overt motor deficits Musculoskeletal: No joint inflammation, muscle tenderness, FROM Skin: No acute rashes or ulcers Extremities: No clubbing, cyanosis, edema
--- NOTE | 2018-06-25 17:07 | Emergency Department Note ---
Entered by Shivani Wilhelm acting as a scribe for Yasmany Rodarte MD History of Present Illness General Chief complaint: Head Injury, Minor Stated complaint: SYNCOPE, HIT HEAD, DEHYDRATED Time Seen by Provider: 06/25/18 09:36 Source: patient and family () History of Present Illness Provider complaint: syncopal episodes Onset (ago): hour(s) (this morning) Location: left and right Maximum Pain Intensity: 4 Quality: + other (syncopal episodes) Associated symptoms: + denies other symptoms (denies abdominal pain); no chest pain, no headaches and no shortness of breath The patient is a 52 year old white female w/ PMHx of anorexia, CKD, hypothyroid , anemia, GI issues, organ failure, osteoporosis, and depression who presents to the ED w/ CC of several syncopal episodes occurring this morning. Her states that the patient has a history of GI issues and dehydration. Per , the patient did work out this morning and states that he thinks that the patient is dehydrated. The patient reports that she did not eat or drink this morning. Per , the patient has chronic issues with her weight and working out. She reports that she has started taking a new medication. The patient denies having headaches, chest pain, abdominal pain, and shortness of breath. Per , the patient does not have a history of seizures. Her states that the patient does have a history of cognitive problems secondary to lack of nutrition and was at [facility] for 2 weeks for this. Her states that he does not think that the patient is on any blood thinners. Home Medications Home Medications Medication Instructions Recorded Confirmed Type calcium 600 mg-D3 800 unit-mag11 1 tab PO BID 02/04/18 06/25/18 History 50 bq-gizt-bfvfnk-lexis-s.borat tablet cholecalciferol (vitamin D3) 1,000 1,000 units PO DAILY 02/04/18 06/25/18 History unit capsule estradiol 0.05 mg/24 hr semiweekly 1 patch TOPICAL 2XWK ea 02/04/18 06/25/18 History transdermal patch gabapentin 600 mg tablet 600 mg PO TID 02/04/18 06/25/18 History lactobacillus combination no.8 3 3,000 mmu cells PO DAILY 02/04/18 06/25/18 History billion cell capsule levothyroxine 112 mcg tablet 112 mcg PO DAILY 02/04/18 06/25/18 History lubiprostone 24 mcg capsule 24 mcg PO BID 02/04/18 06/25/18 History magnesium oxide 400 mg (241.3 mg 400 mg PO TID tab 02/04/18 06/25/18 History magnesium) tablet multivitamin tablet 1 tab PO DAILY 02/04/18 06/25/18 History omega-3 fatty acids 1,000 mg 1,000 mg PO DAILY 02/04/18 06/25/18 History capsule omeprazole 20 mg capsule,delayed 20 mg PO BID cap 02/04/18 06/25/18 History release potassium chloride ER 10 mEq 20 meq PO QID cap 02/04/18 06/25/18 History capsule,extended release tramadol 50 mg tablet 50 mg PO TID PRN tab 02/04/18 06/25/18 History venlafaxine ER 150 mg 150 mg PO DAILY 02/04/18 06/25/18 History capsule,extended release 24 hr vitamin B complex and vitamin C 1 cap PO DAILY 02/04/18 06/25/18 History no.20-folic acid 1 mg capsule baclofen 5 - 10 mg PO DIRECTED 06/25/18 06/25/18 History biotin 5 mg PO DAILY 06/25/18 06/25/18 History buspirone 5 mg PO DAILY 06/25/18 06/25/18 History levothyroxine 100 mcg PO DAILY 06/25/18 06/25/18 History rrqklzjx-bolg34-iqtx fum-folic 1 tab PO DAILY 06/25/18 06/25/18 History [Vol-Plus] norelgestromin-ethin.estradiol 1 patch TOPICAL WK 06/25/18 06/25/18 History [Xulane] teriparatide [Forteo] 20 mcg SUBCUT DAILY 06/25/18 06/25/18 History tretinoin 1 applic TOPICAL HS 06/25/18 06/25/18 History venlafaxine 37.5 mg PO DAILY 06/25/18 06/25/18 History venlafaxine 37.5 mg PO DAILY 06/25/18 06/25/18 History Allergies Allergy/AdvReac Type Severity Reaction Status Date / Time Penicillins Allergy Mild ITCHING Verified 06/25/18 10:31 cephalexin Allergy Unknown unknown Verified 06/25/18 10:31 Cephalosporins Allergy Unknown unknown Verified 06/25/18 10:31 Past Med/Surg History Medical History Lumbar facet joint syndrome (Chronic) Cervical facet syndrome (Chronic) Irritable bowel syndrome (Chronic) Depression (Chronic) Chronic renal disease, stage III (Chronic) Compression fracture (Resolved) L3 Osteoporosis (Chronic) Hypothyroidism (Chronic) Anorexia (Chronic) Anemia (Chronic) CHI (closed head injury) (Chronic) Cervical strain, acute (Resolved) Dehydration (Resolved) Electrolyte imbalance (Resolved 09/27/11) Facial laceration (Resolved) Fall (Resolved) Nasal bone fracture (Resolved) Pyelonephritis, acute (Resolved 03/11/13) Vomiting (Resolved) Kidney disease Surgical History History of arthroscopy of right shoulder (Resolved) History of carpal tunnel surgery of left wrist (Resolved) Social History Current Living Situation: Spouse and Family Other Information That Helps Us Care for You: No Feels Safe at Home: Declines to Answer Smoking Status: Never smoker Do You Dip or Chew Tobacco: No Second Hand Exposure: No Tobacco Cessation Education Requested by Patient: No Hx Alcohol Use: Yes Alcohol type: wine Alcohol Intake Frequency: a few times a week Hx Substance Use: Yes substance use type: prescription drug Beliefs That Will Affect Care: None Preferred Language: Congolese Communication Ability: Impaired Communication Ability Comment: lethargic at this time, shallow breathing Residential Door Installer Required: No Review of Systems See HPI for pertinent positives & negatives. and A total of 10 systems reviewed and were otherwise negative Physical Exam Vital Signs Vital Signs - 24 hr 06/25/18 09:32 06/25/18 09:45 06/25/18 10:00 Temperature 36.5 C Temperature Source Oral Sepsis Recent Fever Within 48 Hours No Sepsis New/Unexplained Change in Mental Status No Sepsis Action Taken by Nursing No Action Required Pulse Rate 78 65 Pulse Rate [Apical] 66 Pulse Rhythm Regular Pulse Rhythm [Apical] Regular Respiratory Rate 16 16 16 Respiratory Effort / Characteristics Non-Labored Spontaneous Respiratory Depth Normal Respiratory Pattern Regular Blood Pressure 130/84 Blood Pressure [Left Arm] 119/74 Blood Pressure Mean 99 Blood Pressure Mean [Left Arm] 89 Pulse Oximetry 99 99 99 Oxygen Delivery Method Room Air Room Air Room Air 06/25/18 12:25 06/25/18 12:56 06/25/18 14:00 Temperature Temperature Source Sepsis Recent Fever Within 48 Hours Sepsis New/Unexplained Change in Mental Status Sepsis Action Taken by Nursing Pulse Rate Pulse Rate [Apical] 72 65 Pulse Rhythm Pulse Rhythm [Apical] Regular Regular Respiratory Rate 18 15 Respiratory Effort / Characteristics Non-Labored Spontaneous Non-Labored Spontaneous Non-Labored Spontaneous Respiratory Depth Shallow Normal Normal Respiratory Pattern Regular Regular Regular Blood Pressure Blood Pressure [Left Arm] 90/61 L 104/72 Blood Pressure Mean Blood Pressure Mean [Left Arm] 70 82 Pulse Oximetry 97 100 Oxygen Delivery Method Room Air Room Air Room Air 06/25/18 15:14 06/25/18 15:31 06/25/18 16:00 Temperature Temperature Source Sepsis Recent Fever Within 48 Hours Sepsis New/Unexplained Change in Mental Status Sepsis Action Taken by Nursing Pulse Rate 58 L 57 L Pulse Rate [Apical] 60 Pulse Rhythm Pulse Rhythm [Apical] Respiratory Rate 24 10 L 7 L Respiratory Effort / Characteristics Respiratory Depth Respiratory Pattern Blood Pressure 115/78 112/73 Blood Pressure [Left Arm] 132/85 Blood Pressure Mean 90 86 Blood Pressure Mean [Left Arm] 100 Pulse Oximetry 100 100 100 Oxygen Delivery Method Room Air 06/25/18 16:30 06/25/18 16:31 06/25/18 17:00 Temperature Temperature Source Sepsis Recent Fever Within 48 Hours Sepsis New/Unexplained Change in Mental Status Sepsis Action Taken by Nursing Pulse Rate 55 L 57 L 53 L Pulse Rate [Apical] Pulse Rhythm Pulse Rhythm [Apical] Respiratory Rate 10 L 13 7 L Respiratory Effort / Characteristics Respiratory Depth Respiratory Pattern Blood Pressure 96/66 L 110/72 Blood Pressure [Left Arm] Blood Pressure Mean 76 84 Blood Pressure Mean [Left Arm] Pulse Oximetry 98 Oxygen Delivery Method Room Air GENERAL: In and out of consciousness. Awakens to voice. GCS 14. Emaciated appearance. EYE EXAM: Normal conjunctiva. PERRL, no anisocoria and EOM's grossly intact w/o pain OROPHARYNX: No exudate, posterior pharynx is clear, no tonsillar/uvular deviation or swelling. Mucous membranes are dry. NECK: Supple, no nuchal rigidity, no adenopathy, non-tender. No signs of meningismus. LUNGS: Clear to auscultation bilaterally. Normal chest wall mechanics. HEART: Normal sinus rhythm, no MRG. ABDOMEN: Abdomen soft, non-tender, no masses, no rebound or guarding. BACK: No CVA TTP. SKIN: No rashes and no bruising. UPPER EXTREMITIES: Upper extremities are grossly normal. LOWER EXTREMITIES: No pitting edema. No calf pain. NEURO EXAM: Cranial nerves II-XII grossly intact, normal speech, 5/5 strength throughout, moves all 4 extremities on command w/o issue. Course 0947: Past medical records reviewed. The patient was evaluated in room B4B, and a complete history and physical examination were performed. 1110: I reassessed the patient and updated the patient and her who verbalized agreement and understanding of the treatment plan. 1120: I reviewed the patient's case with Dr. Kendal Sampson. He will evaluate the patient for further management. 1121: I requested that a psych caser shoe parts speak with the patient. 1520: The patient is talking intermittently. 1532: The pharmacist found that the patient recently received Baclofen, Gabapentin, and Tramadol. 1614: I spoke with Dr. Kendal Sampson regarding the patient. 1710: I discussed the patient's case with the [facility]. They said that Baclofen and Gabapentin together can cause sedation and that too much Tramadol can cause seizures. Consultations Consultation #1: Dr. Kendal Sampson Time: 11:20 Consultation #2: [facility] Time: 17:10 Administered Medications Dextrose/Sodium Chloride (D5w And 1/2nss) 1,000 mls @ 80 mls/hr [id number] Stop: 07/25/18 09:59 Last Infusion: 06/25/18 12:54 Dose: 0 mls/hr Admin: 06/25/18 10:47 Dose: 80 mls/hr Discontinued Medications Calcium Gluconate (Calcium Gluconate 10%) 2,000 mg IV NOW STA Stop: 06/25/18 10:33 Last Admin: 06/25/18 11:15 Dose: 2,000 mg Dextrose (Dextrose 50%) 50 ml IV NOW ONE Stop: 06/25/18 10:28 Last Admin: 06/25/18 10:41 Dose: 50 ml Sodium Chloride (Nss 1000ml) 1,000 mls @ 999 mls/hr IV .Q1H1M ILENE Stop: 06/25/18 11:00 Last Infusion: 06/25/18 10:47 Dose: 0 mls/hr Admin: 06/25/18 09:55 Dose: 999 mls/hr Sodium Chloride (Nss 1000ml) 1,000 mls @ 999 mls/hr IV .Q1H1M ONE Stop: 06/25/18 13:19 Last Infusion: 06/25/18 13:50 Dose: 0 mls/hr Admin: 06/25/18 12:54 Dose: 999 mls/hr Dextrose/Lactated Ringer's (D5w And Lactated Ringers) 1,000 mls @ 500 mls/hr IV .Q2H STA Stop: 06/25/18 14:28 Last Infusion: 06/25/18 15:04 Dose: 0 mls/hr Admin: 06/25/18 13:50 Dose: 500 mls/hr Influenza Virus Vaccine Quadrival (Flucelvax Quad Vaccine) 0.5 ml IM .ONCE ONE Stop: 06/25/18 14:16 Last Admin: 06/25/18 14:56 Dose: Not Given Medical Decision Making Medical Records Attestation: I reviewed the patient's medical records. Home Medications Current Medication List: was personally reviewed by me Laboratory Data Attestation: I reviewed the patient's lab results. Result diagrams: 06/25/18 09:58 06/25/18 14:54 Lab Results 06/25/18 06/25/18 06/25/18 Range/Units 09:50 09:58 09:58 WBC 5.65 (4.8-10.8) K/uL RBC 3.68 L (4.2-5.4) M/uL Hgb 12.1 (12.0-16.0) g/dL Hct 37.0 (37-47) % MCV 100.5 H (80-100) fL MCH 32.9 (25-34) pg MCHC 32.7 (32-36) g/dL RDW Std Deviation 50.0 H (36.4-46.3) fL RDW Coeff of Francisco 13.6 (11.5-14.5) % Plt Count 180 (130-400) K/uL MPV 9.5 (7.4-10.4) fL Immature Gran % (Auto) 0.2 % Neut % (Auto) 47.9 % Lymph % (Auto) 44.1 % Glynn % (Auto) 5.8 % Eos % (Auto) 1.1 % Baso % (Auto) 0.9 % Immature Gran # (Auto) 0.01 (0.00-0.02) K/uL Neut # (Auto) 2.71 (1.4-6.5) K/uL Lymph # (Auto) 2.49 (1.2-3.4) K/uL Glynn # (Auto) 0.33 (0.11-0.59) K/uL Eos # (Auto) 0.06 (0-0.5) K/uL Baso # (Auto) 0.05 (0-0.2) K/uL PT 9.8 (9.0-12.0) Seconds INR 1.0 (0.9-1.1) VBG pH (7.36-7.41) VBG pCO2 (38-50) mmHg VBG pO2 mmHg VBG HCO3 mmol/L VBG O2 Saturation % VBG Base Excess mEq/L Barometric Pressure mm/Hg Sodium 142 (136-145) mmol/L Potassium 4.1 (3.5-5.1) mmol/L Chloride 116 H (98-107) mmol/L Carbon Dioxide 19 L (21-32) mmol/L Anion Gap 7.0 (3-11) BUN 25 H (7-18) mg/dl Creatinine 1.60 H (0.6-1.2) mg/dl Est Cr Clr Drug Dosing 26.6 ml/min Est GFR ( Amer) 42.5 Est GFR (Non-Af Amer) 36.7 BUN/Creatinine Ratio 15.4 (10-20) Glucose 69 L (70-99) mg/dl POC Glucose (70-99) POC Lactic Acid Sushant (0.90-1.70) mmol/L Calcium 7.9 L (8.5-10.1) mg/dl Phosphorus 1.9 L (2.5-4.9) mg/dl Magnesium 2.3 (1.8-2.4) mg/dl Total Bilirubin 0.2 (0.2-1) mg/dl AST 51 H (15-37) U/L ALT 29 (12-78) U/L Alkaline Phosphatase 73 (45-117) U/L Total Creatine Kinase 38 (26-192) U/L Troponin I < 0.015 (0-0.045) ng/ml Total Protein 7.0 (6.4-8.2) gm/dl Albumin 3.0 L (3.4-5.0) gm/dl Globulin 4.0 (2.5-4.0) gm/dl Albumin/Globulin Ratio 0.8 L (0.9-2) Beta-Hydroxybutyric Acd (0.2-2.81) mg/dl TSH 0.018 L (0.300-4.500) uIu/ml Free T4 1.21 (0.8-1.6) ng/dl Urine Color Urine Appearance (Clear) Urine pH (4.5-7.5) Ur Specific [place] (1.000-1.030) Urine Protein (Negative) Urine Glucose (UA) (Negative) Urine Ketones (Negative) Urine Blood (Negative) Urine Nitrite (Negative) Urine Bilirubin (Negative) Urine Urobilinogen (Negative) Ur Leukocyte Esterase (Negative) Salicylates (2.8-20) mg/dl Acetaminophen (10-30) ug/ml Ethyl Alcohol mg/dL (0-3) mg/dl 06/25/18 06/25/18 06/25/18 Range/Units 09:58 09:58 10:02 WBC (4.8-10.8) K/uL RBC (4.2-5.4) M/uL Hgb (12.0-16.0) g/dL Hct (37-47) % MCV (80-100) fL MCH (25-34) pg MCHC (32-36) g/dL RDW Std Deviation (36.4-46.3) fL RDW Coeff of Francisco (11.5-14.5) % Plt Count (130-400) K/uL MPV (7.4-10.4) fL Immature Gran % (Auto) % Neut % (Auto) % Lymph % (Auto) % Glynn % (Auto) % Eos % (Auto) % Baso % (Auto) % Immature Gran # (Auto) (0.00-0.02) K/uL Neut # (Auto) (1.4-6.5) K/uL Lymph # (Auto) (1.2-3.4) K/uL Glynn # (Auto) (0.11-0.59) K/uL Eos # (Auto) (0-0.5) K/uL Baso # (Auto) (0-0.2) K/uL PT (9.0-12.0) Seconds INR (0.9-1.1) VBG pH 7.22 L (7.36-7.41) VBG pCO2 49 (38-50) mmHg VBG pO2 28 mmHg VBG HCO3 20 mmol/L VBG O2 Saturation < 60.0 % VBG Base Excess -8.1 mEq/L Barometric Pressure 726.1 mm/Hg Sodium (136-145) mmol/L Potassium (3.5-5.1) mmol/L Chloride (98-107) mmol/L Carbon Dioxide (21-32) mmol/L Anion Gap (3-11) BUN (7-18) mg/dl Creatinine (0.6-1.2) mg/dl Est Cr Clr Drug Dosing ml/min Est GFR ( Amer) Est GFR (Non-Af Amer) BUN/Creatinine Ratio (10-20) Glucose (70-99) mg/dl POC Glucose (70-99) POC Lactic Acid Sushant < 0.30 L (0.90-1.70) mmol/L Calcium (8.5-10.1) mg/dl Phosphorus (2.5-4.9) mg/dl Magnesium (1.8-2.4) mg/dl Total Bilirubin (0.2-1) mg/dl AST (15-37) U/L ALT (12-78) U/L Alkaline Phosphatase (45-117) U/L Total Creatine Kinase (26-192) U/L Troponin I (0-0.045) ng/ml Total Protein (6.4-8.2) gm/dl Albumin (3.4-5.0) gm/dl Globulin (2.5-4.0) gm/dl Albumin/Globulin Ratio (0.9-2) Beta-Hydroxybutyric Acd (0.2-2.81) mg/dl TSH (0.300-4.500) uIu/ml Free T4 (0.8-1.6) ng/dl Urine Color Urine Appearance (Clear) Urine pH (4.5-7.5) Ur Specific [place] (1.000-1.030) Urine Protein (Negative) Urine Glucose (UA) (Negative) Urine Ketones (Negative) Urine Blood (Negative) Urine Nitrite (Negative) Urine Bilirubin (Negative) Urine Urobilinogen (Negative) Ur Leukocyte Esterase (Negative) Salicylates < 1.7 L (2.8-20) mg/dl Acetaminophen < 2 L (10-30) ug/ml Ethyl Alcohol mg/dL (0-3) mg/dl 06/25/18 06/25/18 06/25/18 Range/Units 10:02 13:54 14:54 WBC (4.8-10.8) K/uL RBC (4.2-5.4) M/uL Hgb (12.0-16.0) g/dL Hct (37-47) % MCV (80-100) fL MCH (25-34) pg MCHC (32-36) g/dL RDW Std Deviation (36.4-46.3) fL RDW Coeff of Francisco (11.5-14.5) % Plt Count (130-400) K/uL MPV (7.4-10.4) fL Immature Gran % (Auto) % Neut % (Auto) % Lymph % (Auto) % Glynn % (Auto) % Eos % (Auto) % Baso % (Auto) % Immature Gran # (Auto) (0.00-0.02) K/uL Neut # (Auto) (1.4-6.5) K/uL Lymph # (Auto) (1.2-3.4) K/uL Glynn # (Auto) (0.11-0.59) K/uL Eos # (Auto) (0-0.5) K/uL Baso # (Auto) (0-0.2) K/uL PT (9.0-12.0) Seconds INR (0.9-1.1) VBG pH (7.36-7.41) VBG pCO2 (38-50) mmHg VBG pO2 mmHg VBG HCO3 mmol/L VBG O2 Saturation % VBG Base Excess mEq/L Barometric Pressure mm/Hg Sodium 142 (136-145) mmol/L Potassium 4.3 (3.5-5.1) mmol/L Chloride 117 H (98-107) mmol/L Carbon Dioxide 20 L (21-32) mmol/L Anion Gap 5.0 (3-11) BUN 20 H (7-18) mg/dl Creatinine 1.53 H (0.6-1.2) mg/dl Est Cr Clr Drug Dosing 27.8 ml/min Est GFR ( Amer) 44.9 Est GFR (Non-Af Amer) 38.7 BUN/Creatinine Ratio 13.1 (10-20) Glucose 328 H (70-99) mg/dl POC Glucose 99 (70-99) POC Lactic Acid Sushant (0.90-1.70) mmol/L Calcium 7.4 L (8.5-10.1) mg/dl Phosphorus (2.5-4.9) mg/dl Magnesium (1.8-2.4) mg/dl Total Bilirubin (0.2-1) mg/dl AST (15-37) U/L ALT (12-78) U/L Alkaline Phosphatase (45-117) U/L Total Creatine Kinase (26-192) U/L Troponin I (0-0.045) ng/ml Total Protein (6.4-8.2) gm/dl Albumin (3.4-5.0) gm/dl Globulin (2.5-4.0) gm/dl Albumin/Globulin Ratio (0.9-2) Beta-Hydroxybutyric Acd 2.03 (0.2-2.81) mg/dl TSH (0.300-4.500) uIu/ml Free T4 (0.8-1.6) ng/dl Urine Color Urine Appearance (Clear) Urine pH (4.5-7.5) Ur Specific [place] (1.000-1.030) Urine Protein (Negative) Urine Glucose (UA) (Negative) Urine Ketones (Negative) Urine Blood (Negative) Urine Nitrite (Negative) Urine Bilirubin (Negative) Urine Urobilinogen (Negative) Ur Leukocyte Esterase (Negative) Salicylates (2.8-20) mg/dl Acetaminophen (10-30) ug/ml Ethyl Alcohol mg/dL < 3.0 (0-3) mg/dl 06/25/18 06/25/18 Range/Units 14:54 17:00 WBC (4.8-10.8) K/uL RBC (4.2-5.4) M/uL Hgb (12.0-16.0) g/dL Hct (37-47) % MCV (80-100) fL MCH (25-34) pg MCHC (32-36) g/dL RDW Std Deviation (36.4-46.3) fL RDW Coeff of Francisco (11.5-14.5) % Plt Count (130-400) K/uL MPV (7.4-10.4) fL Immature Gran % (Auto) % Neut % (Auto) % Lymph % (Auto) % Glynn % (Auto) % Eos % (Auto) % Baso % (Auto) % Immature Gran # (Auto) (0.00-0.02) K/uL Neut # (Auto) (1.4-6.5) K/uL Lymph # (Auto) (1.2-3.4) K/uL Glynn # (Auto) (0.11-0.59) K/uL Eos # (Auto) (0-0.5) K/uL Baso # (Auto) (0-0.2) K/uL PT (9.0-12.0) Seconds INR (0.9-1.1) VBG pH 7.19 L (7.36-7.41) VBG pCO2 48 (38-50) mmHg VBG pO2 26 mmHg VBG HCO3 18 mmol/L VBG O2 Saturation < 60.0 % VBG Base Excess -10.0 mEq/L Barometric Pressure 725.2 mm/Hg Sodium (136-145) mmol/L Potassium (3.5-5.1) mmol/L Chloride (98-107) mmol/L Carbon Dioxide (21-32) mmol/L Anion Gap (3-11) BUN (7-18) mg/dl Creatinine (0.6-1.2) mg/dl Est Cr Clr Drug Dosing ml/min Est GFR ( Amer) Est GFR (Non-Af Amer) BUN/Creatinine Ratio (10-20) Glucose (70-99) mg/dl POC Glucose (70-99) POC Lactic Acid Sushant (0.90-1.70) mmol/L Calcium (8.5-10.1) mg/dl Phosphorus (2.5-4.9) mg/dl Magnesium (1.8-2.4) mg/dl Total Bilirubin (0.2-1) mg/dl AST (15-37) U/L ALT (12-78) U/L Alkaline Phosphatase (45-117) U/L Total Creatine Kinase (26-192) U/L Troponin I (0-0.045) ng/ml Total Protein (6.4-8.2) gm/dl Albumin (3.4-5.0) gm/dl Globulin (2.5-4.0) gm/dl Albumin/Globulin Ratio (0.9-2) Beta-Hydroxybutyric Acd (0.2-2.81) mg/dl TSH (0.300-4.500) uIu/ml Free T4 (0.8-1.6) ng/dl Urine Color Yellow Urine Appearance Clear (Clear) Urine pH 5.0 (4.5-7.5) Ur Specific [place] 1.009 (1.000-1.030) Urine Protein Negative (Negative) Urine Glucose (UA) Negative (Negative) Urine Ketones Negative (Negative) Urine Blood Negative (Negative) Urine Nitrite Negative (Negative) Urine Bilirubin Negative (Negative) Urine Urobilinogen Negative (Negative) Ur Leukocyte Esterase Negative (Negative) Salicylates (2.8-20) mg/dl Acetaminophen (10-30) ug/ml Ethyl Alcohol mg/dL (0-3) mg/dl Imaging Data Radiologist's Impression: Radiology results as stated below per my review and the radiologist's interpretation: XR chest 1V portable CLINICAL HISTORY: weakness WEAKNESS, RIB PAIN. COMPARISON STUDY: 04/08/2018 FINDINGS: The cardiac and mediastinal contours are normal. There is no evidence of focal pulmonary consolidation. There is no evidence of failure. No pleural effusions are visualized.[ IMPRESSION: No active disease in the chest. Electronically signed by: Marshall Carver M.D. 06/25/2018 10:[address]AST CT DOSE: 638.56 mGycm HISTORY: intermittent loss of consciousness TECHNIQUE: Multiaxial CT images of the head were performed without the use of intravenous contrast. Automated exposure control was utilized for this study. A dose lowering technique was utilized adhering to the principles of ALARA. Comparison: Head CT 04/08/2018. Findings: The paranasal sinuses and mastoid air cells are clear. The calvarium and skull base are intact. There is no mass, hematoma, midline shift, acute infarct. White matter hypodensity is nonspecific but suggestive of microvascular ischemic change. The ventricles and sulci demonstrate are within normal limits. Stable prominent perivascular space inferior to the right basal ganglia. Anterior nasal septal perforation is noted. Impression: No acute intracranial abnormality. Electronically signed by: Theron Alegria M.D. 06/25/2018 10:45 AM ECG Data Attestation: I personally reviewed and interpreted this ECG as follows: Indication: weakness Rate (beats per minute): 68 Rhythm: sinus rhythm Findings: + other (normal axis and normal intervals); no acute ischemic change Prescription Drug Monitoring [place] Drug Monitoring Program reviewed and no issues identified Blood Pressure Blood Pressure Findings: Normal blood pressure Head Trauma GCS Score: 14 MDM Narrative Differentials include: ICH, CVA, PNA, bronchitis, PE, UTI, gastroenteritis, electrolyte abnormality, ACS, CHF among others. Patient was seen and evaluated the bedside. Patient is fairly emaciated and consciousness GCS of 14 awakens to voice. The patient does follow commands. The patient does not have any gross focal deficits with the exception of being more in and out. The patient denies any sensory deficits. Patient does not have any anisocoria. The patient does have a known history of dehydration as well as an eating disorder per the patient's chart. Patient also does have a history of depression. Patient did a blood work completed along with a CT of the brain EKG troponin chest x-ray and the patient was given IV fluids and started on D5 half-normal. Patient does appear to be acidotic with a pH of 7 2 on VBG. The patient has slightly decreased bicarb. The patient's PCO2 is normal. CT of the brain is negative. Patient did have tox labs completed which showed negative salicylate Tylenol and alcohol. The patient was not able to convey which medication she had recently taken this morning which she believes she may have taken too much of. The patient was started on dextrose lactated Ringer's. After this was completed a repeat BMP and VBG were obtained. No improvement in the patient's acidosis. I believe this is likely related to starvation ketoacidosis. The patient was maintained on fluids. The patient may also have taken too much of the medication. After speak with the pharmacist the patient did recently obtain baclofen and gabapentin from her local pharmacy. Patient had been seen by psych and the patient had denied any SI, HI, or AVH. The patient also denied excessive working out or an eating disorder. The patient's lack of improvement in symptoms as well as lack of improvement in her blood work I did rediscuss the patient with the hospitalist who agreed to further evaluate treat the patient. Patient was admitted to the medicine service. Impression & Plan Encephalopathy, Failure to thrive, Confusion, Syncope, Overdose Discharge Plan Visit Data Chief Complaint: Head Injury, Minor Stated Complaint: SYNCOPE, HIT HEAD, DEHYDRATED ED Provider: Yasmany Rodarte Discharge Problem: Encephalopathy, Failure to thrive, Confusion, Syncope, Overdose Patient Disposition: Being Evaluated by Hospitalist Forms Stand Alone Forms: My [facility] Prescriptions Prescriptions: No Action multivitamin tablet 1 tab PO DAILY RF: 0 potassium chloride 10 mEq capsule, extended release 20 meq PO QID RF: 0 gabapentin 600 mg tablet 600 mg PO TID RF: 0 omega-3 fatty acids [Fish Oil Concentrate] 1,000 mg capsule 1,000 mg PO DAILY RF: 0 venlafaxine [Effexor XR] 150 mg capsule,extended release 24hr 150 mg PO DAILY RF: 0 estradiol 0.05 mg/24 hr patch semiweekly 1 patch Topical 2XWK RF: 0 tramadol 50 mg tablet 50 mg PO TID PRN (Reason: Pain) RF: 0 magnesium oxide 400 mg (241.3 mg magnesium) tablet 400 mg PO TID RF: 0 omeprazole 20 mg capsule,delayed release(DR/EC) 20 mg PO BID RF: 0 B complex with C#20-folic acid [Nephrocaps] 1 mg capsule 1 cap PO DAILY RF: 0 levothyroxine [Synthroid] 112 mcg tablet 112 mcg PO DAILY RF: 0 cholecalciferol (vitamin D3) 1,000 unit capsule 1,000 units PO DAILY RF: 0 lubiprostone [Amitiza] 24 mcg capsule 24 mcg PO BID RF: 0 [id number] [Caltrate 600-D Plus Minerals] 600 mg calcium- 800 unit-50 mg tablet 1 tab PO BID RF: 0 lactobacillus combination no.8 [Adult Probiotic] 3 billion cell capsule 3,000 mmu cells PO DAILY RF: 0 buspirone 5 mg tablet 5 mg PO DAILY RF: 0 levothyroxine 100 mcg tablet 100 mcg PO DAILY RF: 0 tretinoin 0.025 % gel 1 applic topical HS RF: 0 baclofen 10 mg tablet 5 - 10 mg PO DIRECTED RF: 0 venlafaxine 37.5 mg tablet 37.5 mg PO DAILY RF: 0 venlafaxine 37.5 mg tablet 37.5 mg PO DAILY RF: 0 norelgestromin-ethin.estradiol [Xulane] 150-35 mcg/24 hr patch weekly 1 patch topical WK RF: 0 biotin 5 mg Tablet 5 mg PO DAILY RF: 0 teriparatide [Forteo] 20 mcg/dose - 600 mcg/2.4 mL Pen Injector 20 mcg subcut DAILY RF: 0 [id number] fum-folic [Vol-Plus] 27 mg iron- 1 mg tablet 1 tab PO DAILY RF: 0 Referrals Referrals: Anson Lucio MD [Primary Care Provider] - The scribe's documentation has been prepared under my direction and personally reviewed by me in its entirety. I confirm that the note above accurately reflects all work, treatment, procedures, and medical decision making performed by me.
[2018-06-25 17:26] LABS: Appearance Urine Clear (Clear); Bilirubin Urine Negative (Negative); Color Urine Yellow; Glucose Urine UA Negative (Negative); Ketones Urine Negative (Negative); Leukocyte Esterase Urine Negative (Negative); Nitrite Urine Negative (Negative); Protein Urine Negative (Negative); Specific Gravity Urine 1.009 (1.000-1.030); Urobilinogen Urine Negative (Negative)
[2018-06-25] MEDS ORDERED: POLYETHYLENE (MIRALAX) 17 GM PACK PO PRN (20:33)
[2018-06-25] MEDS ORDERED: MAGNESIUM HYDROXIDE SUSP 30 ML UDC PO PRN (20:33)
[2018-06-25] MEDS ORDERED: ACETAMINOPHEN 325 MG TAB PO PRN (20:33)
[2018-06-25] MEDS ORDERED: SODIUM PHOSPHATE 3 MMOL/1 ML 5 ML VIAL IV SCH (20:33)
[2018-06-25] MEDS ORDERED: ALUMINUM/MAGNESIUM SUSP 30 ML UDC PO PRN (20:33)
[2018-06-25] MEDS ORDERED: ONDANSETRON INJ 2 MG/ML 2 ML VIAL IV PRN (20:33)
[2018-06-25] MEDS ORDERED: SODIUM PHOSPHATE 15 MMOL in SODIUM CHLORIDE 0.9% 250 ML IV ONE (22:00)
[2018-06-25] MEDS: LUBIPROSTONE 8 MCG CAP PO SCH (22:20)
[2018-06-25] MEDS: CALCIUM 600MG + VIT D 400 IU TAB PO SCH (22:31)
[2018-06-25] MEDS: MAGNESIUM OXIDE 400 MG TAB PO SCH (22:33)
[2018-06-25] MEDS: PANTOprazole 40 MG TAB PO SCH (22:34)
[2018-06-25] MEDS: LACTATED RINGER'S 1,000 ML IV SCH (22:56)
[2018-06-25] MEDS: HEPARIN SOD 5,000 UNIT/0.5 ML VIAL SQ SCH (22:57)
[2018-06-26] MEDS: LEVOTHYROXINE SODIUM 100 MCG TABLET PO SCH (05:31)
[2018-06-26] MEDS: LACTATED RINGER'S 1,000 ML IV SCH (05:57)
[2018-06-26 06:06] LABS: Base Excess VBG -4.9 mEq/L; HCO3 VBG 21 mmol/L; PCO2 VBG 43 mmHg (38-50); PO2 VBG 17 mmHg; pH VBG 7.31 (7.36-7.41)
[2018-06-26 06:07] LABS: Oxygen Saturation VBG < 60.0 %
[2018-06-26 06:34] LABS: Est GFR (African American) 52.2; Potassium 4.7 mmol/L (3.5-5.1)
[2018-06-26 06:35] LABS: BUN Creatinine Ratio 11.9 (10-20); Calcium 7.2 mg/dl (8.5-10.1); Creatinine Clr Calc Pharmacy 30.3 ml/min; Magnesium 1.8 mg/dl (1.8-2.4); Phosphorus 2.5 mg/dl (2.5-4.9)
[2018-06-26] MEDS: PANTOprazole 40 MG TAB PO SCH ×2 (07:48→19:55)
[2018-06-26] MEDS: CALCIUM 600MG + VIT D 400 IU TAB PO SCH ×5 (07:48→19:56)
[2018-06-26] MEDS: LUBIPROSTONE 8 MCG CAP PO SCH ×2 (07:49→19:57)
[2018-06-26] MEDS: MAGNESIUM OXIDE 400 MG TAB PO SCH ×3 (07:49→19:55)
[2018-06-26] MEDS: NEPHROCAPS PO SCH (07:49)
[2018-06-26] MEDS: HEPARIN SOD 5,000 UNIT/0.5 ML VIAL SQ SCH ×2 (07:51→19:57)
[2018-06-26] MEDS ORDERED: LEVOTHYROXINE SODIUM 100 MCG TABLET PO SCH (09:00)
[2018-06-26] MEDS ORDERED: LEVOTHYROXINE SODIUM 112 MCG TABLET PO SCH ×2 (09:00)
[2018-06-26] MEDS ORDERED: GADOBUTROL 65ML VIAL IV PRN (12:24)
--- NOTE | 2018-06-26 12:44 | Magnetic Resonance Report ---
MR brain wo/w con CLINICAL HISTORY: altered mental status mental status change COMPARISON STUDY: 07/19/2008 TECHNIQUE: Utilizing a 1.5 Zoila magnet and dedicated coil, multiplanar, multiecho imaging of the br ain was performed pre and postcontrast administration. IV administration of 6.5 mL of Gadavist contr ast was uneventful. FINDINGS: No evidence for an acute ischemic process. Diffusion-weighted images are normal. Foci of increased signal within the periventricular deep white matter are slightly progressive compar ed to the prior study. This again suggests a demyelinating disorder. No significant postcontrast enhancement. Ventricular system is midline. Internal auditory canals are symmetric. IMPRESSION: 1. No evidence for an acute ischemic insult. 2. Slightly progressive foci of increased signal within the periventricular and deep white matter reg ions consistent with a demyelinating disorder. 3. No abnormal postcontrast enhancement. The above report was generated using voice recognition software. It may contain grammatical, syntax or spelling errors. Electronically signed by: Tomas Ureña M.D. 06/26/2018 12:43 PM
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
[2018-06-26] MEDS: TRAMADOL HCL 50 MG TABLET PO PRN ×2 (15:49→21:06)
--- NOTE | 2018-06-26 22:54 | Hospitalist Progress Note ---
Date of Service June 26, 2018 Assessment & Plan (1) Encephalopathy: 51 y/o female, Hx of anxiety/depression, severe anorexia, chronic electrolyte deficiencies, hypothyroidism, gastroparesis, IBS with constipation, GERD, CKD stage III, osteoporosis, chronic pain. Presents following 2-3 syncopal episodes this AM which occurred while exercising or shortly after. There was no reported seizure activity and she apparently has had this issue before when dehydrated. She was somnolent on arrival to the ER and is not helpful with the H&P. She denied taking medications aside from what is prescribed to her, and denies any drug or alcohol intake. She is somnolent at the time of admission to the medical service and could not additionally contribute to the HPI. Initial labs are notable for acidosis, protein malnutrition, mild hypocalcemia and hypophosphatemia. There is no apparent source of infection on initial evaluation. Her had provided that she has had cognitive issues related to her Anorexia in the past and was recently at [facility] for 2 weeks due to encephalopathy. 1) AMS - Cause is not clear. Her TSH is overly suppressed although her symptoms are not consistent with hyperthyroidism. There is no apparent source of infection. She takes Gabapentin, Buspar, Venlafaxine, Tramadol and Baclofen which at higher doses could factor in. Workup has been negative. She was recently started on baclofen which will be held. This could also be due to her sevre malnourished state. Her and patient deny this as per psych notes. Psych does not feel patient needs inpatient psych. Will keep patient for another day as her mental status has not returned to baseline as she repeats her words. 2) Syncope - Elecrolyte deficiencies are not severe at present. We suspect this is more related to either hypoglycemia as her glu has been low in the past and was marginal on arrival, or volume depletion. She is placed on a monitor overnight. Will also stop baclofen. 3) Elcrolyte deficiencies - Low Ca, low phos - repleted will repeat again in AM. 4) Acidosis on VBG - Likely due to ketosis - IVF and nutritional supplementation ordered. She may need parenteral nutrition if she is unable to tolerate PO for an extended period. will monitor her labs on 06/27 5) CKD III - Creat is at baseline 6) Regarding her anorexia - This has been an issue for several years and she has refused treatment. A Psychiatry eval is pending. 7) Hypothyroidism - TSH is over-suppressed - T4 is WNL - we will hold Synthroid for a few days 8) Chronic pain - Takes Tramadol which is held for now - this may be a new medication and a leading culprit for her AMS 9) Anxiety and depression - Buspar and Venlafaxine held pending input from psych and improvement in her mentation 10) Severe protein-calorie malnutrition Patient appears to be anorexic. This likely explains her early osteoporosis, low BMI, need for caps in her teeth. Patient however denies this. But she also has refused GI followup to assess for malabsorption. May consider dietitian consult. possibly toxic encephalopathy due to medications This is a possiblity. This could also be from her severe malnutrition. Will monitor but will hold her baclofen. Full code - Heparin prophylaxis Spent 45 minutes in management of patient. Subjective 52 yo female is asking to be discharged. She states that she does not need to be here. She reports that she eats well. She has always had osteoporosis since she was 20, she has always been thin since she was 20 and she has caps in her teeth. She reports that she likely fell due to her new medicine. Physical Exam 2 Vital Signs (Past 24 Hours): Last Vital Signs Temp 36.6 C 06/26/18 20:00 Pulse 68 06/26/18 20:00 Resp 16 06/26/18 20:00 BP 130/82 06/26/18 20:00 Pulse Ox 99 06/26/18 20:00 Physical Exam: General: Patient is awake and alert, she repeats words when she speaks. no distress - breathing comfortably lying flat ENT: No erythema or exudates, no thrush Eyes: REFUGIO, EOMI Head and neck: Normocephalic, atraumatic, No JVD, neck is supple. Chest/heart: Nontender, S1,2, RRR, no murmurs, no gallops Lungs: CTAB, no wheezing or crackles Abdomen: Nontender, nondistended, BS+ Neuro: Somnolent as above - no overt motor deficits Musculoskeletal: No joint inflammation, muscle tenderness, FROM Skin: No acute rashes or ulcers Extremities: No clubbing, cyanosis, edema
[2018-06-27] MEDS: LEVOTHYROXINE SODIUM 100 MCG TABLET PO SCH (06:13)
[2018-06-27] MEDS: LUBIPROSTONE 8 MCG CAP PO SCH ×2 (07:41→19:54)
[2018-06-27] MEDS: HEPARIN SOD 5,000 UNIT/0.5 ML VIAL SQ SCH ×2 (07:42→19:57)
[2018-06-27] MEDS: CALCIUM 600MG + VIT D 400 IU TAB PO SCH ×2 (07:42→19:54)
[2018-06-27] MEDS: MAGNESIUM OXIDE 400 MG TAB PO SCH ×3 (07:43→19:54)
[2018-06-27] MEDS: NEPHROCAPS PO SCH (07:43)
[2018-06-27] MEDS: PANTOprazole 40 MG TAB PO SCH ×2 (07:43→19:55)
[2018-06-27 14:17] LABS: Hematocrit (blood only) 39.4 % (37-47); Hemoglobin 12.9 g/dL (12.0-16.0); Mean Corpuscular Hgb Conc 32.7 g/dL (32-36); Mean Platelet Volume 9.3 fL (7.4-10.4); Platelet Count 166 K/uL (130-400); RDW Coefficient of Variation 13.7 % (11.5-14.5); RDW Standard Deviation 50.5 fL (36.4-46.3); Red Blood Count 3.94 M/uL (4.2-5.4); White Blood Count 6.74 K/uL (4.8-10.8)
[2018-06-27 14:46] LABS: BUN Creatinine Ratio 8.8 (10-20); Creatinine Clr Calc Pharmacy 34.7 ml/min; Est GFR (African American) 58.4; Est GFR (Non-African American) 50.4; Magnesium 1.8 mg/dl (1.8-2.4)
[2018-06-27] MEDS ORDERED: POTASSIUM PHOS 3 MMOL/1 ML INFUSION IV STA (15:10)
[2018-06-27] MEDS ORDERED: POTASSIUM CHLORIDE 20 MEQ TABCR PO STA (15:11)
[2018-06-27] MEDS ORDERED: POTASSIUM PHOSPHATE 24 MMOL in SODIUM CHLORIDE 0.9% 500 ML IV ONE (15:30)
[2018-06-27] MEDS: THIAMINE HCL 100 MG TAB PO SCH (17:54)
[2018-06-27] MEDS: TRAMADOL HCL 50 MG TABLET PO PRN (17:55)
[2018-06-27] MEDS: VITAMIN B COMPLEX TAB PO SCH (19:53)
[2018-06-28] MEDS: LEVOTHYROXINE SODIUM 100 MCG TABLET PO SCH (05:42)
[2018-06-28] MEDS: HEPARIN SOD 5,000 UNIT/0.5 ML VIAL SQ SCH ×2 (08:11→20:51)
[2018-06-28] MEDS: LUBIPROSTONE 8 MCG CAP PO SCH ×2 (08:11→20:46)
[2018-06-28] MEDS: CALCIUM 600MG + VIT D 400 IU TAB PO SCH ×2 (08:11→20:44)
[2018-06-28] MEDS: MAGNESIUM OXIDE 400 MG TAB PO SCH ×3 (08:12→20:45)
[2018-06-28] MEDS: NEPHROCAPS PO SCH (08:12)
[2018-06-28] MEDS: VITAMIN B COMPLEX TAB PO SCH (08:13)
[2018-06-28] MEDS: PANTOprazole 40 MG TAB PO SCH ×2 (08:13→20:44)
[2018-06-28] MEDS: CHOLECALCIFEROL 1,000 UNITS TAB PO SCH (08:14)
[2018-06-28 08:39] LABS: Hematocrit (blood only) 37.7 % (37-47); Hemoglobin 12.1 g/dL (12.0-16.0); Mean Corpuscular Hgb Conc 32.1 g/dL (32-36); Mean Corpuscular Volume 99.5 fL (80-100); Mean Platelet Volume 9.6 fL (7.4-10.4); Platelet Count 162 K/uL (130-400); RDW Coefficient of Variation 13.6 % (11.5-14.5); RDW Standard Deviation 49.6 fL (36.4-46.3); Red Blood Count 3.79 M/uL (4.2-5.4); White Blood Count 5.87 K/uL (4.8-10.8)
[2018-06-28] MEDS ORDERED: ETHINYL ESTRADIOL EXT SCH (09:00)
[2018-06-28] MEDS ORDERED: NORELGESTROMIN EXT SCH (09:00)
[2018-06-28 09:12] LABS: Albumin Level 2.4 gm/dl (3.4-5.0); BUN Creatinine Ratio 8.2 (10-20); Creatinine Clr Calc Pharmacy 37.7 ml/min; Est GFR (African American) 64.7; Est GFR (Non-African American) 55.8; Magnesium 1.7 mg/dl (1.8-2.4); Potassium 4.3 mmol/L (3.5-5.1)
[2018-06-28 09:18] LABS: Albumin Globulin Ratio 0.6 (0.9-2); Bilirubin,Total 0.2 mg/dl (0.2-1); Globulin 3.9 gm/dl (2.5-4.0); Phosphorus 1.4 mg/dl (2.5-4.9); Total Protein 6.3 gm/dl (6.4-8.2)
[2018-06-28] MEDS: THIAMINE HCL 100 MG TAB PO SCH (09:22)
[2018-06-28] MEDS ORDERED: POTASSIUM PHOS 3 MMOL/1 ML INFUSION IV STA (09:38)
[2018-06-28] MEDS: TRAMADOL HCL 50 MG TABLET PO PRN (10:03)
[2018-06-28] MEDS: MAGNESIUM SULFATE / D5W 1 GM/100 ML BAG IV SCH ×2 (10:05→11:35)
[2018-06-28] MEDS: POT PHOSPHATE MONOBASIC W/ SOD TAB PO SCH ×3 (11:57→20:44)
--- NOTE | 2018-06-28 12:46 | Hospitalist Progress Note ---
Date of Service June 27, 2018 Assessment & Plan (1) Encephalopathy: 51 y/o female, Hx of anxiety/depression, severe anorexia, chronic electrolyte deficiencies, hypothyroidism, gastroparesis, IBS with constipation, GERD, CKD stage III, osteoporosis, chronic pain. Presents following 2-3 syncopal episodes this AM which occurred while exercising or shortly after. There was no reported seizure activity and she apparently has had this issue before when dehydrated. She was somnolent on arrival to the ER and is not helpful with the H&P. She denied taking medications aside from what is prescribed to her, and denies any drug or alcohol intake. She is somnolent at the time of admission to the medical service and could not additionally contribute to the HPI. Initial labs are notable for acidosis, protein malnutrition, mild hypocalcemia and hypophosphatemia. There is no apparent source of infection on initial evaluation. Her had provided that she has had cognitive issues related to her Anorexia in the past and was recently at [facility] for 2 weeks due to encephalopathy. 1) AMS - Cause is not clear. Her TSH is overly suppressed although her symptoms are not consistent with hyperthyroidism. There is no apparent source of infection. She takes Gabapentin, Buspar, Venlafaxine, Tramadol and Baclofen which at higher doses could factor in. Workup has been negative. She was recently started on baclofen which will be held. This could also be due to her severe malnourished state. Patient is blaming the baclofen, which can be a possibility however, she appears to be very malnourished. Reviewing her previous records, in 2012, it appears she had abused diuretics. Will obtain urine to check for diuretics in the urine. She is also showing signs of refeeding syndrome GIVEN HER low phosphate after eating. 2) Syncope - Elecrolyte deficiencies are not severe at present. We suspect this is more related to either hypoglycemia as her glu has been low in the past and was marginal on arrival, or volume depletion. Will also stop baclofen. THIS IS LIKELY secondary to her malnourished state. 3) Elcrolyte deficiencies refeeding syndrome. will replace her labs. 4) Acidosis on VBG - Likely due to ketosis - IVF and nutritional supplementation ordered. She appears to be tolerating her PO labs. 5) CKD III - Creat is at baseline 6) Regarding her anorexia - This has been an issue for several years and she has refused treatment. A Psychiatry eval is complete. For now does not meet criteria. May need to be reassessed prior to discharge. 7) Hypothyroidism - TSH is over-suppressed - T4 is WNL - we will hold Synthroid for a few days 8) Chronic pain - Takes Tramadol which is held for now - this may be a new medication and a leading culprit for her AMS 9) Anxiety and depression - Buspar and Venlafaxine held pending input from psych and improvement in her mentation 10) Severe protein-calorie malnutrition Patient appears to be anorexic. This likely explains her early osteoporosis, low BMI, need for caps in her teeth. Patient however denies this. But she also has refused GI followup to assess for malabsorption. May consider dietitian consult. possibly toxic encephalopathy due to medications This is a possiblity. This could also be from her severe malnutrition. Will monitor but will hold her baclofen. Full code - Heparin prophylaxis Spent 45 minutes in management of patient. Subjective 52 yo female continues to state that she eats well. She would like to be discaharged. She states her electrolytes are abnormal due to the fact that she is not taking her multivitamins. She again states that she does not need to be here. She is blaming baclofen as the reason as to why she passed out. Physical Exam 2 Vital Signs (Past 24 Hours): Last Vital Signs Temp 36.8 C 06/28/18 11:54 Pulse 89 06/28/18 11:54 Resp 18 06/28/18 11:54 BP 129/69 06/28/18 11:54 Pulse Ox 95 06/28/18 11:54 Physical Exam: General: Patient is awake and alert, she is able to speak in full sentences. No distress - breathing comfortably lying flat ENT: No erythema or exudates, no thrush Eyes: REFUGIO, EOMI Head and neck: Normocephalic, atraumatic, No JVD, neck is supple. Chest/heart: Nontender, S1,2, RRR, no murmurs, no gallops Lungs: CTAB, no wheezing or crackles Abdomen: Nontender, nondistended, BS+ Neuro: Somnolent as above - no overt motor deficits Musculoskeletal: No joint inflammation, muscle tenderness, FROM Skin: No acute rashes or ulcers Extremities: No clubbing, cyanosis, edema
[2018-06-28] MEDS: GABAPENTIN 600 MG TAB PO SCH (20:46)
[2018-06-29] MEDS ORDERED: SODIUM CHLORIDE 0.65% NA SOLN 45 ML (OCEAN) ONE (03:41)
[2018-06-29] MEDS ORDERED: SODIUM CHLORIDE 0.65% NA SOLN 45 ML (OCEAN) PRN (03:44)
[2018-06-29] MEDS: LEVOTHYROXINE SODIUM 100 MCG TABLET PO SCH (06:24)
--- NOTE | 2018-06-29 07:45 | Hospitalist Progress Note ---
Date of Service June 28, 2018 Assessment & Plan (1) Encephalopathy: 51 y/o female, Hx of anxiety/depression, severe anorexia, chronic electrolyte deficiencies, hypothyroidism, gastroparesis, IBS with constipation, GERD, CKD stage III, osteoporosis, chronic pain. Presents following 2-3 syncopal episodes this AM which occurred while exercising or shortly after. There was no reported seizure activity and she apparently has had this issue before when dehydrated. She was somnolent on arrival to the ER and is not helpful with the H&P. She denied taking medications aside from what is prescribed to her, and denies any drug or alcohol intake. She is somnolent at the time of admission to the medical service and could not additionally contribute to the HPI. Initial labs are notable for acidosis, protein malnutrition, mild hypocalcemia and hypophosphatemia. There is no apparent source of infection on initial evaluation. Her had provided that she has had cognitive issues related to her Anorexia in the past and was recently at [facility] for 2 weeks due to encephalopathy. 1) AMS This appears to have resolved. - Cause is not clear. However this appears to be likely from her poor calorie intake. Especially given her presentation, low bmi, osteoporosis, signs of refeeding syndrome. She also takes Gabapentin, Buspar, Venlafaxine, Tramadol and Baclofen which at higher doses could factor in. She was recently started on baclofen which will be held. Patient is blaming the baclofen, which can be a possibility however, she appears to be very malnourished. Reviewing her previous records, in 2012, it appears she had abused diuretics and was diagnosed with anorexia nervosa.. Obtained urine to check for diuretics in the urine. She is also showing signs of refeeding syndrome GIVEN HER low phosphate 1 day after eating. 2) Syncope - Elecrolyte deficiencies are not severe at present. Will also stop baclofen. THIS IS LIKELY secondary to her malnourished state. 3) Electrolyte deficiencies refeeding syndrome. will replace her electrolytes again. Her magnesium and phosphate. 4) Acidosis on VBG - Likely due to ketosis - IVF and nutritional supplementation ordered. She appears to be tolerating her PO labs. 5) CKD III - Creat is improving. Concern over dehydration as an outpatient. She is not getting IVF for past 2 days. 6) Regarding her anorexia - This has been an issue for several years and she has refused treatment. A Psychiatry eval is complete. For now does not meet criteria for inpatient stay. May need to be reassessed prior to discharge. 7) Hypothyroidism - TSH is over-suppressed - T4 is WNL - we will hold Synthroid for a few days 8) Chronic pain - Takes Tramadol which is held for now - this may be a new medication and a leading culprit for her AMS 9) Anxiety and depression - Buspar and Venlafaxine held pending input from psych and improvement in her mentation 10) Severe protein-calorie malnutrition Patient appears to be anorexic. This likely explains her early osteoporosis, low BMI, need for caps in her teeth. Patient however denies this. But she also has refused GI followup to assess for malabsorption. May consider dietitian consult. possibly toxic encephalopathy due to medications This is a possiblity. This could also be from her severe malnutrition. Will monitor but will hold her baclofen. Full code - Heparin prophylaxis Spent 35 minutes in management of patient. Subjective 52 yo female states she is ready for discharge. She ate her meals, this was confirmed after I check her tray. She denies ay symptoms. She is no longer hallucinating or stuttering her words. She again is blaming baclofen as the reason as to why she passed out. Physical Exam 2 Vital Signs (Past 24 Hours): Last Vital Signs Temp 36.8 C 06/28/18 11:54 Pulse 89 06/28/18 11:54 Resp 18 06/28/18 11:54 BP 129/69 06/28/18 11:54 Pulse Ox 95 06/28/18 11:54 Physical Exam: General: Patient is awake and alert, she is able to speak in full sentences. No distress - breathing comfortably lying flat ENT: No erythema or exudates, no thrush Eyes: REFUGIO, EOMI Head and neck: Normocephalic, atraumatic, No JVD, neck is supple. Chest/heart: Nontender, S1,2, RRR, no murmurs, no gallops Lungs: CTAB, no wheezing or crackles Abdomen: Nontender, nondistended, BS+ Musculoskeletal: No joint inflammation, muscle tenderness, FROM Skin: No acute rashes or ulcers Extremities: No clubbing, cyanosis, edema
[2018-06-29 08:29] LABS: Hematocrit (blood only) 38.5 % (37-47); Hemoglobin 12.7 g/dL (12.0-16.0); Mean Corpuscular Volume 98.7 fL (80-100); Mean Platelet Volume 9.7 fL (7.4-10.4); Platelet Count 163 K/uL (130-400); RDW Coefficient of Variation 13.5 % (11.5-14.5); RDW Standard Deviation 48.4 fL (36.4-46.3); White Blood Count 5.77 K/uL (4.8-10.8)
[2018-06-29] MEDS: LUBIPROSTONE 8 MCG CAP PO SCH (08:37)
[2018-06-29] MEDS: CALCIUM 600MG + VIT D 400 IU TAB PO SCH (08:38)
[2018-06-29] MEDS: HEPARIN SOD 5,000 UNIT/0.5 ML VIAL SQ SCH (08:38)
[2018-06-29] MEDS: MAGNESIUM OXIDE 400 MG TAB PO SCH (08:39)
[2018-06-29] MEDS: NEPHROCAPS PO SCH (08:40)
[2018-06-29] MEDS: GABAPENTIN 600 MG TAB PO SCH (08:40)
[2018-06-29] MEDS: THIAMINE HCL 100 MG TAB PO SCH (08:43)
[2018-06-29] MEDS: POT PHOSPHATE MONOBASIC W/ SOD TAB PO SCH (08:43)
[2018-06-29] MEDS: PANTOprazole 40 MG TAB PO SCH (08:43)
[2018-06-29] MEDS: VITAMIN B COMPLEX TAB PO SCH (08:44)
[2018-06-29] MEDS: CHOLECALCIFEROL 1,000 UNITS TAB PO SCH (08:44)
[2018-06-29 08:48] LABS: BUN Creatinine Ratio 10.6 (10-20); Calcium 6.6 mg/dl (8.5-10.1); Creatinine Clr Calc Pharmacy 38.7 ml/min; Est GFR (African American) 66.8; Est GFR (Non-African American) 57.7; Magnesium 1.8 mg/dl (1.8-2.4); Potassium 3.9 mmol/L (3.5-5.1)
[2018-06-29 08:55] LABS: Phosphorus 2.8 mg/dl (2.5-4.9)
[2018-06-29] MEDS ORDERED: LACTOBACILLUS ACIDOPHILUS (FLORANEX) TAB PO SCH (09:00)
[2018-06-29] MEDS ORDERED: OMEGA-3 (PURIFIED FISH OIL) 1 GM CAP PO SCH (09:00)
[2018-06-29] MEDS ORDERED: CALCIUM 600MG + VIT D 400 IU TAB PO SCH ×2 (09:45→21:00)
[2018-06-29] MEDS ORDERED: CALCIUM GLUCONATE 10% 1,000 MG in SODIUM CHLORIDE 0.9% 50 ML IV ONE (10:00)
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
== END 2018-06-29 13:40 | disposition home or self-care (01) ==
LOC: ED 09:29 → 2E 17:05 → SUATTDRO 17:05 → 2E 20:07

== ENCOUNTER 2024-09-08 05:20 | Observation (INO) ==
--- NOTE | 2024-08-31 13:16 | PAT Medication Instructions ---
Medication Instructions Date of Service August 31, 2024 Home Medications Medication Instructions Recorded hyoscyamine sulfate 0.125 mg tablet See Rx Instructions .Route 03/11/23 .COMPLEX #90 tabs venlafaxine 37.5 mg See Rx Instructions .Route 11/15/23 capsule,extended release 24 hr .COMPLEX #90 caps gabapentin 600 mg tablet 600 mg PO TID #270 tabs 01/22/24 ondansetron 4 mg disintegrating 4 mg PO Q8H PRN nausea and 05/28/24 tablet vomiting #30 tabs pantoprazole 40 mg tablet,delayed 40 mg PO BID #180 tabs 06/17/24 release potassium chloride 10 mEq 20 meq (2 x 10 mEq) PO QID #720 06/17/24 capsule,extended release caps lubiprostone 24 mcg capsule 24 mcg PO BID #180 caps 06/19/24 (Amitiza) levothyroxine 88 mcg tablet 88 mcg PO 6XWK #90 tabs 07/06/24 venlafaxine 150 mg See Rx Instructions .Route 07/23/24 capsule,extended release 24 hr .COMPLEX #90 caps lubiprostone 24 mcg capsule 24 mcg PO BID #90 caps 07/28/24 (Amitiza) oxycodone 5 mg tablet 7.5 mg (1.5 x 5 mg) PO TID PRN 08/24/24 pain #90 tabs biotin 5 mg tablet 5 mg PO DAILY lactobacillus combination no.4 3 billion cell capsule (Probiotic) 3,000 mmu cells PO DAILY omega-3 fatty acids 1,000 mg capsule 1,000 mg PO DAILY vitamin B complex and vitamin C no.20-folic acid 1 mg capsule 1 cap PO DAILY hyoscyamine sulfate 0.125 mg tablet See Rx Instructions .Route .COMPLEX venlafaxine 37.5 mg capsule,extended release 24 hr See Rx Instructions .Route .COMPLEX gabapentin 600 mg tablet 600 mg PO TID ondansetron 4 mg disintegrating tablet 4 mg PO Q8H PRN nausea and vomiting pantoprazole 40 mg tablet,delayed release 40 mg PO BID potassium chloride 10 mEq capsule,extended release 20 meq (2 x 10 mEq) PO QID lubiprostone 24 mcg capsule (Amitiza) 24 mcg PO BID levothyroxine 88 mcg tablet 88 mcg PO 6XWK venlafaxine 150 mg capsule,extended release 24 hr See Rx Instructions .Route .COMPLEX lubiprostone 24 mcg capsule (Amitiza) 24 mcg PO BID oxycodone 5 mg tablet 7.5 mg (1.5 x 5 mg) PO TID PRN pain estradiol 1 mg tablet 1 mg PO QAM magnesium 500 mg tablet 15 mg PO TID progesterone micronized 100 mg capsule 100 mg PO QAM Continue as directed levothyroxine 88 mcg tablet 88 mcg PO 6XWK ASK your surgeon for instructions estradiol 1 mg tablet 1 mg PO QAM progesterone micronized 100 mg capsule 100 mg PO QAM STOP taking 2 weeks before surgery (or as soon as possible if surgery is within 2 weeks) omega-3 fatty acids 1,000 mg capsule 1,000 mg PO DAILY DO NOT take the morning of surgery biotin 5 mg tablet 5 mg PO DAILY lactobacillus combination no.4 3 billion cell capsule (Probiotic) 3,000 mmu cells PO DAILY vitamin B complex and vitamin C no.20-folic acid 1 mg capsule 1 cap PO DAILY hyoscyamine sulfate 0.125 mg tablet See Rx Instructions .Route .COMPLEX potassium chloride 10 mEq capsule,extended release 20 meq (2 x 10 mEq) PO QID lubiprostone 24 mcg capsule (Amitiza) 24 mcg PO BID lubiprostone 24 mcg capsule (Amitiza) 24 mcg PO BID magnesium 500 mg tablet 15 mg PO TID Take morning of surgery With a small sip of water, OTHERWISE NOTHING TO EAT OR DRINK AFTER MIDNIGHT: venlafaxine 37.5 mg capsule,extended release 24 hr See Rx Instructions .Route .COMPLEX gabapentin 600 mg tablet 600 mg PO TID ondansetron 4 mg disintegrating tablet 4 mg PO Q8H PRN nausea and vomiting (if needed) pantoprazole 40 mg tablet,delayed release 40 mg PO BID venlafaxine 150 mg capsule,extended release 24 hr See Rx Instructions .Route .COMPLEX oxycodone 5 mg tablet 7.5 mg (1.5 x 5 mg) PO TID PRN pain (if needed) Take evening before surgery hyoscyamine sulfate 0.125 mg tablet See Rx Instructions .Route .COMPLEX (if needed) gabapentin 600 mg tablet 600 mg PO TID ondansetron 4 mg disintegrating tablet 4 mg PO Q8H PRN nausea and vomiting (if needed) pantoprazole 40 mg tablet,delayed release 40 mg PO BID potassium chloride 10 mEq capsule,extended release 20 meq (2 x 10 mEq) PO QID lubiprostone 24 mcg capsule (Amitiza) 24 mcg PO BID lubiprostone 24 mcg capsule (Amitiza) 24 mcg PO BID oxycodone 5 mg tablet 7.5 mg (1.5 x 5 mg) PO TID PRN pain (if needed) magnesium 500 mg tablet 15 mg PO TID Other Notes If you have any questions please call us at [phone] or [phone] or [phone] or [phone]
--- NOTE | 2024-09-03 10:50 | Anesthesiology Consultation ---
Date of Service September 03, 2024 Assessment & Plan (1) Encounter for pre-operative examination: - Infectious disease screening: Per assessment on 09/03/24- No known recent infectious disease contacts or current infectious disease symptoms. - Outpatient joint assessment: Pt currently scheduled for inpatient pathway. If surgeon requests review for outpatient joint pathway, patient is not recommended candidate for outpatient joint program from anesthesia standpoint based on available information. - Abnormal Brain MRI: 2019 Brain MRI at [facility] noted "Multiple scattered foci of T2 hyperintensity seen within the within the periventricular and subcortical white matter of the supratentorial brain. This has slightly progressed in the interval and favors a nonspecific demyelinating process." Patient denies knowledge of previous neurologic diagnosis/brain abnormality hx. Denies current neurologic complaints. Reviewed with Dr. Jesus Pedraza. Nothing further needed preoperatively from his perspective. Ultimate anesthesia type determination by anesthesiologist DOS. - PCP note/visit (08/24/24): "Medium risk only because low BMI otherwise low risk, RCRI 0.. Stable/medically optimized for surgery" Chart Review Chart Review: Acceptable Risk for Surgery (pending evaluation DOS) and Patient seen in Pre Admission Testing Teaching & Discussion Pre-Anesthesia Teaching/Discussion Notes: Instructed NPO after midnight before surgery,except medications with 15 cc of water. Medication instructions provided according to the PAT guidelines. History Surgery Operation Date: 09/08/24 12:30 Proposed Procedures p Right Total Hip Arthroplasty - Avi Marie MD Height/Weight Height: 5 ft 3 in Weight: 42 kg Allergies Allergy/AdvReac Type Severity Reaction Status Date / Time acetaminophen Allergy Severe Liver Verified 09/03/24 10:03 failure cephalexin Allergy Intermediate Nausea, Verified 09/03/24 10:03 itching Cephalosporins Allergy Intermediate Itching or Verified 09/03/24 10:03 nausea Penicillins Allergy Intermediate Itching Verified 09/03/24 10:03 nitrofurantoin Allergy Mild Hives Verified 08/25/24 10:49 sulfamethoxazole Allergy Unknown Unknown Verified 09/03/24 10:06 [From Bactrim] trimethoprim [From Bactrim] Allergy Unknown Unknown Verified 09/03/24 10:06 Medications Home Medications Medication Instructions Recorded Confirmed Last Taken biotin 5 mg tablet 5 mg PO DAILY 06/25/18 08/31/24 06/07/22 lactobacillus combination no.4 3 3,000 mmu cells PO DAILY 01/08/31/24 06/07/22 billion cell capsule (Probiotic) omega-3 fatty acids 1,000 mg 1,000 mg PO DAILY 06/07/22 08/31/24 06/07/22 capsule vitamin B complex and vitamin C 1 cap PO DAILY 06/07/22 08/31/24 06/07/22 no.20-folic acid 1 mg capsule hyoscyamine sulfate 0.125 mg tablet See Rx Instructions .Route 03/11/23 08/31/24 Unknown .COMPLEX #90 tabs venlafaxine 37.5 mg See Rx Instructions .Route 11/15/23 08/31/24 Unknown capsule,extended release 24 hr .COMPLEX #90 caps gabapentin 600 mg tablet 600 mg PO TID #270 tabs 01/22/24 08/31/24 Unknown ondansetron 4 mg disintegrating 4 mg PO Q8H PRN nausea and 05/28/24 08/31/24 Unknown tablet vomiting #30 tabs pantoprazole 40 mg tablet,delayed 40 mg PO BID #180 tabs 06/17/24 08/31/24 Unknown release potassium chloride 10 mEq 20 meq (2 x 10 mEq) PO QID #720 06/17/24 08/31/24 Unknown capsule,extended release caps lubiprostone 24 mcg capsule 24 mcg PO BID #180 caps 06/19/24 08/31/24 Unknown (Amitiza) levothyroxine 88 mcg tablet 88 mcg PO 6XWK #90 tabs 07/06/24 08/31/24 Unknown venlafaxine 150 mg See Rx Instructions .Route 07/23/24 08/31/24 Unknown capsule,extended release 24 hr .COMPLEX #90 caps lubiprostone 24 mcg capsule 24 mcg PO BID #90 caps 07/28/24 08/31/24 Unknown (Amitiza) oxycodone 5 mg tablet 7.5 mg (1.5 x 5 mg) PO TID PRN 08/24/24 08/31/24 Unknown pain #90 tabs estradiol 1 mg tablet 1 mg PO QAM 08/25/24 08/31/24 Unknown magnesium 500 mg tablet 15 mg PO TID 08/25/24 08/31/24 Unknown progesterone micronized 100 mg 100 mg PO QAM 08/25/24 08/31/24 Unknown capsule Past Medical History Medical History Alcohol dependence Per records Anxiety and depression Asymmetric kidneys, acquired Chronic kidney disease Follows with Dr. Pinto Chronic nausea TALENT AC[employer]ITION CONSULTANT demyelinating disorder Brain MRI 2019: Multiple scattered foci of T2 hyperintensity seen within the within the periventricular and subcortical white matter of the supratentorial brain. This has slightly progressed in the interval and favors a nonspecific demyelinating process. Gastroparesis GERD (gastroesophageal reflux disease) Hiatal hernia Hx of fracture Lumbar spine 04/22/24: No acute lumbar spine fracture is noted. Old L3 compression fracture is unchanged seen. T12 and L1 compression deformities are unchanged. Hypothyroidism IBS (irritable bowel syndrome) Nephrolithiasis Cystoscopy/laser stone destruction/stent scheduled 10/22/24- planned for after upcoming orthopedic surgery Neuropathy Osteoporosis Pain syndrome, chronic Piriformis syndrome Exercise / Class Metabolic Activity III < 4 Walking/Shop/Light housework (uses cane PRN) Past Family History Family History Mother Skin cancer Hyperlipidemia Father Skin cancer Hyperlipidemia Other No family history of adverse response to anesthesia Denies family history of Ovarian cancer Breast cancer Colorectal cancer Past Surgical History Surgical History H/O cosmetic surgery Botox injection H/O shoulder surgery Right H/O wrist surgery Right History of ankle surgery Right (+ hardware) History of colonoscopy with polypectomy History of cryosurgery Cervical History of esophagogastroduodenoscopy History of nasal surgery Nasal fracture repair History of surgery on lower extremity Right (+ hardware) History of tooth extraction S/P cholecystectomy Past Anesthesia History No Hx of Anesthesia Complications and No Family Hx of Anesthesia Complications History of PONV No Hx of PONV and No Hx of Motion Sickness Social History Smoking Status: Never smoker Do You Dip or Chew Tobacco: No Hx Alcohol Use: Yes Alcohol type: wine alcohol intake frequency: 0-2 drinks per day (2 drinks/day (wine); hx alcohol dependence per records) Hx Substance Use: No substance use type: does not use Review of Systems Patient denies chest pain, shortness of breath, fever, chills, cough, wheezing, palpitations. Physical Exam Vital Signs BP 107/72 P 102 TEMP 98.1 SP02 99%RA RESP 16 Physical Full cervical extension range of motion. Full TMJ range of motion. TMD 3 finger breaths Mallampati Score I Dentition: intact, + caps Lungs: clear throughout to auscultation Cardiac: regular rate and rhythm, no murmurs noted Spine: normal Carotid arteries: negative bruit Extremities: no LE edema Lab Results Anesthesia Preop Results Results Anesthesia Widget: WBC 6.75 K/ul (4.8-10.8) 08/24/24 Hgb 12.1 g/dl (12.0-16.0) 08/24/24 Hct 36.7 % (37.0-47.0) L 08/24/24 Plt 267 K/uL (130-400) 08/24/24 Na 137 mmol/L (136-145) 08/24/24 K 4.1 mmol/L (3.5-5.1) 08/24/24 Cl 105 mmol/L (98-107) 08/24/24 CO2 27 mmol/L (21-32) 08/24/24 BUN 32 mg/dl (6-23) H 08/24/24 Creat 1.17 mg/dl (0.6-1.2) 08/24/24 Glucose Level 75 mg/dl (70-99(Fasting)) 08/24/24 PT 10.0 Seconds (9.0-12.0) 08/24/24 PTT 28 Seconds (21-31) 09/03/24 INR 0.9 (0.9-1.1) 08/24/24 HA1c 5.1 % (4.5-5.6) 08/24/24 Blood Type O Positive 09/03/24 Antibody Screen NEGATIVE 09/03/24 Testing Electrocardiogram Date: 08/24/24 Findings: + NSR @ (96) Chest X-Ray Date: 09/03/24 Findings: + NAD
[~2024-09-08 05:20] MED LIST changes: +ALLERGY Noted to ORDERED Medication SCH; -AMT24 PO; -B-COCAP2 PO; -CALCTAB7 PO; -CHOL100027 PO; -ESTR0.0510 TD; -ESTRODOL TOP; -LEVO112T2 PO; -MAGN400T5 PO; -MISCCAP80 PO; -NRN600 PO; -OMEGCAP2 PO; -ONDA4TAB46 PO; -POTA10CA28 PO; -PRENTAB26 PO; -PRLSR20 PO; -PROC10TA PO; -TRAM-10 PO; -VENL150C56 PO
[2024-09-08] MEDS: ACETAMINOPHEN 500 MG TAB PO SCH ×2 (05:53→14:27)
[2024-09-08] MEDS: LR 500ML BOLUS, THEN 15ML/HR IV SCH (05:54)
[2024-09-08] MEDS: CeleBREX 200 MG CAP PO SCH (05:54)
[2024-09-08] MEDS: LR 60ML/HR IV SCH (05:54)
[2024-09-08] MEDS: FAMOTIDINE 20 MG TAB PO SCH (06:09)
[2024-09-08] MEDS: dexAMETHasone**PF** 10 MG/ML VIAL IV SCH (06:09)
[2024-09-08] MEDS: METOCLOPRAMIDE HCL 10 MG TABLET PO SCH (06:09)
[2024-09-08] MEDS ORDERED: BUPIVACAINE 0.5 % 5 MG/1 ML PF 10ML VIAL ONE (06:31)
[2024-09-08] MEDS ORDERED: MIDAZOLAM HCL 1 MG/ML 2ML VIAL ONE (06:34)
[2024-09-08] MEDS ORDERED: fentaNYL citrate PF 100 MCG/2 ML VIAL ONE ×2 (06:34→07:33)
[2024-09-08] MEDS ORDERED: LIDOCAINE 2% 2 ML VIAL/AMP(20MG/ML) INFIL ONE (06:34)
[2024-09-08] MEDS ORDERED: ONDANSETRON INJ 2 MG/ML 2 ML VIAL ONE (06:34)
[2024-09-08] MEDS ORDERED: PROPOFOL IV EMULSION 10 MG/ML 20 ML VIAL IV ONE (06:34)
[2024-09-08] MEDS ORDERED: ROCURONIUM BROMIDE 10 MG/ML 5 ML VIAL IV ONE (06:34)
--- NOTE | 2024-09-08 06:44 | History & Physical Bridge Note ---
Date of Service September 08, 2024 History & Physical Bridge Note I have examined the patient, reviewed the History & Physical and in the interval since the performance of the History & Physical I have noted the following changes of clinical significance: no changes noted
[2024-09-08] MEDS ORDERED: diphenhydrAMINE 50 MG/ML VIAL ONE (06:49)
[2024-09-08] MEDS ORDERED: ePHEDrine sulfate 50 MG/ML AMP IV PRN (06:51)
[2024-09-08] MEDS ORDERED: PROMETHAZINE HCL 6.25 MG in SODIUM CHLORIDE 0.9% 50 ML IV PRN (06:51)
[2024-09-08] MEDS ORDERED: ATROPINE SULFATE 0.1 MG/ML 10ML SYR IV PRN (06:51)
[2024-09-08] MEDS ORDERED: ONDANSETRON INJ 2 MG/ML 2 ML VIAL IV PRN ×2 (06:51→10:06)
[2024-09-08] MEDS: ceFAZolin 2000MG 2,000 MG/15 ML SYR IV SCH (06:59)
[2024-09-08] MEDS: BUPIVACAINE/EPINEPHRINE 0.5% MPF 1:200,000 30 ML VIAL ONE (08:07)
[2024-09-08] MEDS ORDERED: SUGAMMADEX SODIUM 200 MG/2 ML VIAL IV ONE (08:25)
--- NOTE | 2024-09-08 08:51 | Operative Report ---
PG Post Operative Report Pre & Post Diagnosis Operation Date: 09/08/24 07:00 Pre-Op Diagnosis: Right Hip Arthritis Post-Op Diagnosis: Right Hip Arthritis I identified the patient and participated in the time-out.: Yes Procedure Operation Date: 09/08/24 07:00 Actual Procedures p Right Total Hip Arthroplasty(Right) - Avi Marie MD Surgeon Avi Marie MD Flight Engineer Tyler Ho PA-C Estimated Blood Loss 100 Findings Consistent with Post-Op Diagnosis Operative findings were advanced right hip DJD. She had the grade 4 [id number] disease of the femoral head and acetabulum. She had a punctate b leeding in the superior aspect of the femoral head. That she had shearing of some articular cartilage that was within the joint. Diffuse osteopenia. Minimal osteophyte formation. Moderate to large hip joint effusion. Specimens Right femoral head sent for pathology. Anesthesia Type General Complications none Disposition Accompanied Patient To Recovery: No Indications Patient is a 58-year-old very active cachectic female whose had a year history of increasing right hip pain discomfort got markedly worse over the past several months. She failed conservative measures. X-rays show advanced hip arthritis. She elected proceed with total hip arthroplasty. This patient was fairly osteopenic with a very low bone density. Therefore we elected to place a cemented femoral implant as I did not feel her bone would reliably grow into an uncemented implant. Description of Procedure Operative implants consist of: 1 Biomet G7 size 50 mm acetabular shell. 2. 6.5 cancellous acetabular screws 1 of 35 mm length 125 mm length. 3. Nipomo hole paper feeder. 4. Highly cross-linked polyethylene liner with a 50 mm outer diameter, 36 mm inner diam with a gonzalez placed inferior and posterior. 5. DePuy [place] size 3 high offset cemented femoral stem with a distal centralizer. 6. +5/36 mm ceramic articular ball. 7. Small cement restrictor. The patient was taken to the op room, identified, placed on the operating table in the supine position. All contact areas were appropriately padded. IV antibiotics tried by anesthesia team. A general anesthetic was implemented by the anesthesia team. A Koenig catheter was then placed in a sterile fashion. The patient then placed in the left lateral cubitus position. An axillary roll was placed. Distal Birkett position was used for positioning. The right hip and leg were then prepped and draped in usual sterile fashion. A posterolateral approach to the right hip was then performed to a curvilinear incision centered over the greater trochanter. Sharp dissection was carried through subcutaneous tissue down to the level of the IT band and gluteal fascia. The IT band gluteal fascia were incised longitudinally in line with skin incision. The underlying greater bursa was excised. The piriformis and external rotators were then taken off the posterior aspect of the hip joint along with the posterior hip joint capsule as a single layer. Great care was taken throughout the procedure to protect the sciatic nerve at all times. The hip was then internally rotated and dislocated. A femoral neck osteotomy cut was made with Final Cut about that 10 to 12 mm above the lesser trochanter. Femoral head was removed and sent for pathology. The femur was retracted anteriorly. Attention then to the acetabulum. The acetabular labrum was excised. The pulmonary fat was excised. Sequential reaming the acetabulum was then performed beginning with a size 43 and progressing up to a 49. I reamed a little bit with a 50 reamer and then placed a 50 mm Biomet acetabular shell in about 20 degrees of anteversion and 40 degrees of lateral opening. I did a little bit less anteversion due to her extreme anteversion of the femoral neck. A trial liner was placed. It was fixed with 2 screws. Attention drawn the femur. The proximal femur was then with a V-Key cutter followed by canal finder. Her bone was fairly osteopenic with fairly poor cancellous bone quality and therefore we elected to place the cemented implant. I used a lateralizing reamer. I then broached beginning with a size 1 and progressing up to a 3. Good fit with 3. Trial of the hip in the high offset stem seemed to fit most appropriately and recreate leg lengths and stability optimally. I did elect to place a gonzalez inferior and posterior maximize her stability in flexion due to her significant exercises and activity interests. We elect to place his implants. All trial implants were removed. Nipomo hole paper feeder was placed. Highly cross- linked polyethylene liner with gonzalez placed inferior and posterior was then placed. A small cement restrictor was placed. A double batch of [place] G cement was mixed. I then injected the canal and a size 3 high offset femoral stem was placed with a centralizer. We held this until the cement hardened. Once the cement hardened a +5/36 mm ceramic articular ball was placed. Hip was located and once again found to be stable. Attention drawn toward closing. The wound was irrigated coconuts of pulsatile lavage solution. We also irrigated with a Betadine solution and the Betadine soak. I then irrigated again. The posterior capsule and external rotators were then repaired through drill holes in the posterior trochanter with #2 Tycron suture. The IT band gluteal fascia then closed with #1 PDS suture running fashion the subcutaneous tissue was then closed in a single layer as she had no deep tissues so with 2-0 Vicryl suture in buried interrupted fashion. The skin was closed skin red. Leg was then cleaned and dried and a sterile dressing was Xeroform, 4 fours, ABD pad and foam tape was applied. The patient then brought out of general anesthesia and transferred to the recovery room in stable condition. Patient tolerated procedure well and there were no complications. Tyler Ho, my physician promotional advertising assistant, was present for the entire procedure. His assistance was essential and required for appropriate patient positioning, prepping and draping, surgical exposure, performing the technical details of the operation, placement the implants, closure of the wound, and placement of the sterile bandage. I attest to the content of the Intraoperative Record and any orders documented therein. Any exceptions are noted below.
[2024-09-08] MEDS: fentaNYL citrate PF 100 MCG/2 ML VIAL IV PRN (08:57)
[2024-09-08] MEDS: TRANEXAMIC ACID 1,000 MG **IV Pre-op IV SCH (09:14)
--- NOTE | 2024-09-08 09:17 | XRay Report ---
XR hip 1V RT w pelvis HISTORY: 58 years-old Female IN PACU - Post Surgical right hip arthroplasty COMPARISON: 07/27/2024 radiographs TECHNIQUE: AP view of the pelvis with crosstable lateral view of the right hip FINDINGS: Mild to moderate osteoarthritis of the left hip. Right hip arthroplasty demonstrates satisfactory ali gnment. Lateral skin red with expected postoperative soft tissue swelling and deep tissue air. No acute fracture or unexpected opaque foreign body. IMPRESSION: Right hip arthroplasty with expected postoperative changes. ACT 112: Negative or not required by law. The above report was generated using voice recognition software. It may contain grammatical, syntax o r spelling errors. Electronically signed by: Mikal Godoy M.D. 09/08/2024 9:16 AM
[2024-09-08] MEDS: HYDROmorphone INJ 1 MG/ML SYRINGE IV PRN (09:18)
[2024-09-08] MEDS ORDERED: NON-FORMULARY MEDICATION (Lubiprostone [Amitiza] 24 mcg capsule) PO SCH (10:06)
[2024-09-08] MEDS ORDERED: bisacodyL 10 MG SUPP PR PRN (10:06)
[2024-09-08] MEDS ORDERED: NO NSAIDS SCH (10:06)
[2024-09-08] MEDS ORDERED: METOCLOPRAMIDE HCL INJ 5 MG/ML 2 ML VIAL IV PRN (10:06)
[2024-09-08] MEDS ORDERED: NALOXONE HCL 0.4 MG/1 ML VIAL/CARP IV PRN (10:06)
[2024-09-08] MEDS ORDERED: diphenhydrAMINE Capsule 25 MG CAP PO PRN (10:06)
[2024-09-08] MEDS ORDERED: NON-FORMULARY MEDICATION (Biotin 5 mg Tablet) PO SCH (10:06)
[2024-09-08] MEDS ORDERED: MAGNESIUM HYDROXIDE SUSP 30 ML UDC PO PRN (10:06)
[2024-09-08] MEDS ORDERED: NON-FORMULARY MEDICATION (Magnesium 500 mg Tablet) PO SCH (10:06)
[2024-09-08] MEDS ORDERED: SENNA 8.6 MG TAB PO SCH (10:06)
[2024-09-08] MEDS: PANTOprazole 40 MG TAB PO SCH (12:00)
[2024-09-08] MEDS: POTASSIUM CHLORIDE 10 MEQ TABCR PO SCH (12:01)
[2024-09-08] MEDS: traMADol HCL 50 MG TABLET PO PRN ×2 (12:01→18:00)
[2024-09-08] MEDS: DOCUSATE SODIUM 100 MG CAP PO SCH (12:01)
[2024-09-08] MEDS: ASPIRIN 81 MG ECTAB PO SCH (12:02)
[2024-09-08] MEDS: NEPHROCAPS PO SCH (12:02)
[2024-09-08] MEDS: estradioL 1 MG TAB PO SCH (12:02)
[2024-09-08] MEDS: OMEGA-3 (PURIFIED FISH OIL) 1 GM CAP PO SCH (12:02)
[2024-09-08] MEDS: MULTIVITAMIN TAB PO SCH (12:02)
[2024-09-08] MEDS: LACTOBACILLUS ACIDOPHILUS 1 GM PACK PO SCH (12:03)
[2024-09-08] MEDS: LEVOTHYROXINE SODIUM 88 MCG TABLET PO SCH (14:12)
--- NOTE | 2024-09-08 14:17 | Anesthesiology Progress Note ---
Date of Service September 08, 2024 Anesthesia Post Procedure Vital Signs Vital Signs: Temp Pulse Pulse Pulse Resp BP Pulse Ox 09/08/24 13:19 36.4 C L 95 H 14 115/74 100 09/08/24 12:21 36.2 C L 81 15 136/79 100 09/08/24 11:09 36.3 C L 85 15 131/77 100 09/08/24 10:34 36.4 C L 86 15 133/82 100 09/08/24 10:07 36.3 C L 86 14 131/87 99 09/08/24 10:05 09/08/24 09:50 88 12 138/95 100 09/08/24 09:40 37.1 C 85 12 127/88 100 09/08/24 09:30 86 13 137/90 100 09/08/24 09:20 89 12 135/96 95 09/08/24 09:10 90 14 140/93 100 09/08/24 09:00 88 19 155/91 H 100 09/08/24 08:50 87 12 144/90 H 100 09/08/24 08:44 36.5 C 101 H 12 158/88 H 100 09/08/24 05:55 36.9 C 84 20 138/88 98 O2 Del Method O2 Flow Rate 09/08/24 13:19 Room Air 09/08/24 12:21 Nasal Cannula 1 09/08/24 11:09 Nasal Cannula 1 09/08/24 10:34 Nasal Cannula 1 09/08/24 10:07 Nasal Cannula 1 09/08/24 10:05 Nasal Cannula 1 09/08/24 09:50 Nasal Cannula 2 09/08/24 09:40 Nasal Cannula 2 09/08/24 09:30 Nasal Cannula 2 09/08/24 09:20 Room Air 09/08/24 09:10 Oxymask 7 09/08/24 09:00 Oxymask 7 09/08/24 08:50 Oxymask 7 09/08/24 08:44 Oxymask 7 09/08/24 05:55 Room Air Pain Intensity Right Hip: Pain Intensity: 9 Transfer of Care Handoff Completed per policy Notes Mental Status: alert / awake / arousable and participated in evaluation Patient Amnestic to Procedure: Yes Nausea / Vomiting: adequately controlled Pain: adequately controlled Airway Patency, RR, SpO2: stable & adequate BP & HR: stable & adequate Hydration State: stable & adequate Anesthetic Complications: no major complications apparent and Pt Satisfied with anesthetic care
[2024-09-08] MEDS: HYDROmorphone INJ 0.5 MG/0.5 ML SYR IV PRN (14:30)
[2024-09-08] MEDS: GABAPENTIN 600 MG TAB PO SCH (14:31)
[2024-09-08] MEDS: TRANEXAMIC ACID / 0.7% NACL 1,000 MG/100 ML BAG IV SCH (14:31)
[2024-09-08] MEDS: ceFAZolin 1000MG 1,000 MG/7.5 ML SYR IV SCH (14:31)
[2024-09-08] MEDS: ASCORBIC ACID 500 MG TAB PO SCH (17:41)
[2024-09-08] MEDS: SENNA 8.6 MG TAB PO SCH (21:58)
[2024-09-09 03:24] VITALS: RESP 16
[2024-09-09] MEDS: LEVOTHYROXINE SODIUM 88 MCG TABLET PO SCH (05:54)
[2024-09-09 06:36] LABS: Basophils # (auto) 0.03 K/uL (0.00-0.20); Basophils % (auto) 0.6 %; Eosinophils # (auto) 0.02 K/uL (0.00-0.50); Eosinophils % (auto) 0.4 %; Hematocrit (blood only) 33.9 % (37.0-47.0); Hemoglobin 11.2 g/dl (12.0-16.0); Immature Granulocytes # (auto) 0.02 K/uL (0.01-0.20); Immature Granulocytes % (auto) 0.4 %; Lymphocytes # (auto) 1.46 K/uL (1.20-3.40); Lymphocytes % (auto) 28.2 %; Mean Corpuscular Hemoglobin 34.3 pg (25.0-34.0); Mean Corpuscular Volume 103.7 fL (80.0-100.0); Mean Platelet Volume 9.2 fL (9.4-12.4); Monocytes % (auto) 7.7 %; Neutrophils # (auto) 3.25 K/uL (1.40-6.50); Neutrophils % (auto) 62.7 %; Platelet Count 203 K/uL (130-400); RDW Coefficient of Variation 13.1 % (11.5-14.5); RDW Standard Deviation 50.1 fL (36.4-46.3); Red Blood Count 3.27 M/uL (4.20-5.40); White Blood Count 5.18 K/ul (4.8-10.8)
[2024-09-09 06:55] LABS: BUN Creatinine Ratio 19.3 (10-20); Calcium 7.2 mg/dl (8.6-10.3); Creatinine Clr Calc Pharmacy 32.5 ml/min; Potassium 4.2 mmol/L (3.5-5.1)
[2024-09-09] MEDS: dexAMETHasone 10 MG in SYRINGE 0 ML IV SCH (07:50)
[2024-09-09 08:21] VITALS: BP 102/71; PULSE 90; TEMP 97.7; O2SAT 95
--- NOTE | 2024-09-09 09:37 | Orthopedic Progress Note ---
Date of Service September 09, 2024 Assessment & Plan (1) Status post right hip replacement: Assessment: Right total hip arthroplasty. Plan: Overall, she is doing quite well today with good pain control the right hip. She will work with physical therapy later this morning to work on ambulation range of motion exercises. She was started on aspirin for DVT prophylaxis. She can be discharged home later this morning pending formal physical therapy evaluation and recommendations. Her dressings will be changed with the assistance of home health upon discharge. She did chicken picker her medications from pharmacy already and has no questions about them today. She will follow-up with Dr. Marie in 2 to 3 weeks for continued postoperative management or sooner if needed. Subjective . Vaishali was seen and evaluated this morning resting comfortably no apparent distress. She notes that her pain is well-controlled to the right hip. She notes that she has been up and out of bed without any significant issues. She is yet to work physical therapy today. She denies any other concerns today. Review of Systems All systems reviewed & are unremarkable except as noted in HPI & below. Physical Exam . On physical examination of the right hip, dressing is clean, dry, and intact with no signs of active bleeding, discharge, or signs of infection. Her leg is on full extension. Limited range of motion strength secondary to postoperative stiffness soreness. Calf soft nontender to palpation. Negative Homans' sign. Intact plantarflexion dorsiflexion to the right ankle. +2 DP and PT pulse. Less than 2-second capillary refill. Normal sensation. Neurovasc intact. Results & Data Results & Data Laboratory Results . Diagnostic Findings . Hip/Pelvis X-Ray 09/08/24 08:48 XR hip 1V RT w pelvis HISTORY: 58 years-old Female IN PACU - Post Surgical right hip arthroplasty COMPARISON: 07/27/2024 radiographs TECHNIQUE: AP view of the pelvis with crosstable lateral view of the right hip FINDINGS: Mild to moderate osteoarthritis of the left hip. Right hip arthroplasty demonstrates satisfactory alignment. Lateral skin red with expected postoperative soft tissue swelling and deep tissue air. No acute fracture or unexpected opaque foreign body. IMPRESSION: Right hip arthroplasty with expected postoperative changes. ACT 112: Negative or not required by law. The above report was generated using voice recognition software. It may contain grammatical, syntax or spelling errors. Electronically signed by: Mikal Godoy M.D. 09/08/2024 9:16 AM PG Care Time/CCT Total # of Minutes Spent Total Time Spent with Patient: Total time spent is greater than 50% in coordination of care (as documented) at patient's floor/unit and/or counseling patient: Coding Level of Care Code 78681 Post Operative Follow-Up Diagnoses Status post right hip replacement Z96.641
--- NOTE | 2024-09-09 09:38 | Discharge Summary ---
Date of Service September 09, 2024 Principal Diagnosis Same as "Discharge Diagnosis" noted below under Discharge Instructions. Discharge Exam . On physical examination of the right hip, dressing is clean, dry, and intact with no signs of active bleeding, discharge, or signs of infection. Her leg is on full extension. Limited range of motion strength secondary to postoperative stiffness soreness. Calf soft nontender to palpation. Negative Homans' sign. Intact plantarflexion dorsiflexion to the right ankle. +2 DP and PT pulse. Less than 2-second capillary refill. Normal sensation. Neurovasc intact. Discharge Data Procedures Performed Operation Date: 09/08/24 07:00 Actual Procedures p Right Total Hip Arthroplasty(Right) - Avi Marie MD Hospital Course (1) Status post right hip replacement: On September 08, 2024 Vaishali arrived at [facility] underwent a right total hip arthroplasty performed by Dr. Marie with no complications. She had a general anesthetic. Postoperatively, she was started on aspirin for DVT prophylaxis and transferred to the general orthopedic floor in stable condition. Her hospital course was uneventful. On postoperative day #1, her vital signs were stable and her pain was well-controlled. She participated well physical therapy working on ambulation and range of motion exercises. She was then discharged home in stable condition. She will follow-up with Dr. Marie in 2 to 3 weeks for continued postoperative management or sooner if needed. PG Care Time/CCT Total # of Minutes Spent Total Time Spent with Patient: Total time spent is greater than 50% in coordination of care (as documented) at patient's floor/unit and/or counseling patient: Discharge Plan Discharge Items Patient Disposition: Home - Home Health Services Reason For Visit: Right Hip Arthritis Discharge Diagnosis: Right Hip Replacement Activity: Per Instructions section Activity Comment: Follow/Obey hip precautions at all times. Weightbearing: Full weightbearing Weightbearing Comment: Follow/Obey hip precautions at all times. Non-emergency contact: Surgeon Call non-emergency contact if: you have any medication questions Follow-up/Referrals: Khalida Pedraza DO [Primary Care Provider] - Diet: Regular Addtl Attending Provider Instructions: ACTIVITY RECOMMENDATIONS: Diet: * You may resume previous diet. Physical Therapy: * Aggressive physical therapy is not usually needed. You will learn to take care of yourself safely and walk. * Follow the "Hip Precautions Instructions." * In some cases, the social services designee at the hospital will arrange to have a therapist come to your house for the first couple of weeks to help you learn these skills. * You need to practice on your own or with the help of a family member as needed. * When you learn these skills, most of the therapy can be done on your own. Home Exercise: * You were shown a series of exercises in the hospital. Do these exercises three to four times each day including the exercises you were shown in physical t herapy. Walking: * Get up and walk several times each day. For the first four weeks, try not to stand or walk for more than one hour at a time. If you do stand or walk for more than one hour, you will not hurt anything, but your leg will likely swell. * As you feel comfortable, you may change from the walker or crutches to a cane and then to independent walking. MEDICATIONS: New Medicine: * You will likely be taking one or more of these medicines: 1. Tramadol - Take, as directed, when you need it, every six hours to control your pain. 2. Aspirin - Thins your blood to lessen the chance of forming a blood clot. * The most common side effects of pain medicine and iron are nausea and constipation. If nausea or constipation is too much of a problem or if you have any questions about your new medicines or doses, call [facility] at . We will try to help you manage these issues. "VERY IMPORTANT TO READ AND REVIEW" Pain: * The immediate post-operative period after hip replacement surgery is often quite painful. * You are given a prescription for pain medicine. You should take it, as directed, when you need it, especially before physical therapy and before going to bed. Pain that interferes with sleep is very common and can last several months. * You will likely need pain medicine for the first two to four weeks. It will not stop all of the pain. The pain will lessen and as you feel better, you may change to milder pain medicine such as Tylenol. * The most common side effects of pain medicine are nausea and constipation, so don't take more than you need. SPECIAL CARE INSTRUCTIONS: TEDs/Elastic Stockings: * The white elastic stockings help limit swelling and prevent blood clots from forming in your legs. The more you wear them, the more they work. * Wear them for six weeks. Incision Site Care: * Remove dressing postoperative day 2 and then shower. Keep direct shower pressure off the incision site. * After showering, cover red with dry gauze and change daily or more frequently if the dressing is getting saturated with drainage. * May completely stop using bandage if wound is dry and no drainage * [place] are removed between 2 and 3 weeks post-op. If your follow-up appointment is made before 2 weeks, please have your appointment re- scheduled. It is too early to remove the red. Prevention of Infection: * Take antibiotics one hour before any dental cleaning, dental work, urological procedure, gastrointestinal procedure or any invasive surgery in order to prevent your new joint from getting infected. * You may get the antibiotics from the doctor performing the procedure or you may call our office at before and we will call in a prescription to the pharmacy of your choice. Things to Watch For: * Drainage from the incision site that occurs more than one week after your surgery. * Severely increased leg pain or swelling. * Increased redness at the incision site. * Fever above 102 degrees Fahrenheit. * Unusual chest pain or shortness of breath. * Unusual pain or burning with urination. Call [facility] at with any of the above problems or if you have any questions about your medicines or recovery. FOLLOW UP VISIT: Make an appointment to see your doctor for approximately two weeks after surgery for a progress check and staple removal by calling the office at . Pending Studies at Discharge: No Stand-Alone Forms: My [facility], Smoking Cessation Medications and DC Order Prescriptions: New tramadol 50 mg Tablet 50 - 100 mg PO Q6H PRN (Reason: pain) Qty: 40 0RF Continued venlafaxine 37.5 mg capsule,extended release 24hr See Rx Instructions .ROUTE .COMPLEX Qty: 90 3RF Dose Instruction: TAKE 1 CAPSULE DAILY Rx Instructions: TAKE 1 CAPSULE DAILY along with 150mg for total daily dose 187.5mg gabapentin 600 mg tablet 600 mg PO TID Qty: 270 3RF pantoprazole 40 mg tablet,delayed release (DR/EC) 40 mg PO BID Qty: 180 3RF potassium chloride 10 mEq capsule, extended release 20 meq PO QID Qty: 720 1RF lubiprostone [Amitiza] 24 mcg capsule 24 mcg PO BID Qty: 180 3RF Rx Instructions: TAKE 1 CAPSULE TWICE A DAY levothyroxine 88 mcg tablet 88 mcg PO 6XWK Qty: 90 3RF Rx Instructions: TAKE 1 TABLET DAILY venlafaxine 150 mg capsule,extended release 24hr See Rx Instructions .ROUTE .COMPLEX Qty: 90 3RF Dose Instruction: take 1 capsule by mouth once daily WITH 37.5MG Rx Instructions: take 1 capsule by mouth once daily WITH 37.5MG lubiprostone [Amitiza] 24 mcg capsule 24 mcg PO BID Qty: 90 3RF Rx Instructions: Short term supply until mail order arrives. ondansetron 4 mg tablet,disintegrating 4 mg PO Q8 PRN (Reason: nausea) Qty: 20 1RF Rx Instructions: Take as needed for nausea sennosides [Senokot] 8.6 mg tablet 8.6 mg PO BID 14 Days Qty: 28 0RF Rx Instructions: Take two times a day to prevent/treat constipation acetaminophen [Tylenol Extra Strength] 500 mg tablet 1,000 mg PO TID 30 Days Qty: 180 0RF Rx Instructions: Take 3 times per day to lessen pain. aspirin [Zoltan Low Dose Aspirin] 81 mg tablet,delayed release (DR/EC) 81 mg PO BID 45 Days Qty: 90 0RF Rx Instructions: Take to prevent blood clots. cefadroxil 500 mg capsule 500 mg PO BID 7 Days Qty: 14 0RF Rx Instructions: Take 1 cap twice a day to prevent infection ondansetron 4 mg tablet,disintegrating 4 mg PO Q8H PRN (Reason: nausea and vomiting) Qty: 30 1RF biotin 5 mg Tablet 5 mg PO DAILY omega-3 fatty acids 1,000 mg Capsule 1,000 mg PO DAILY B complex with C 20-folic acid 1 mg Capsule 1 cap PO DAILY Probiotic 3 billion cell Capsule 3,000 mmu cells PO DAILY Rx Instructions: administer with a meal estradiol 1 mg tablet 1 mg PO QAM progesterone micronized 100 mg capsule 100 mg PO QAM magnesium 500 mg Tablet 15 mg PO TID tramadol 50 mg Tablet 50 mg PO Q6H PRN (Reason: Pain) hyoscyamine sulfate [Levsin] 0.125 mg tablet See Rx Instructions .ROUTE .COMPLEX PRN (Reason: IBS) Rx Instructions: take 1 tablet daily if needed for IRRITABLE BOWEL SYDROME Discontinued oxycodone 5 mg tablet 5 mg PO Q6 PRN (Reason: pain) Qty: 40 0RF Rx Instructions: Take as needed for pain oxycodone 5 mg tablet 7.5 mg PO TID PRN (Reason: pain) Qty: 90 0RF Admission Data Admit Date/Time: 09/08/24 08:48 Attending Provider: Avi Marie Admit Provider: Avi Marie Primary Care Provider: Khalida Pedraza
== END 2024-09-09 12:07 | disposition home health service (06) ==
LOC: 3E 05:20 → ASU 05:20